=== PATIENT | female | born 1935 | race Hispanic/Latino ===

== ENCOUNTER 2017-03-17 16:48 | Emergency (ER) | payer MEDICARE ==
[2017-03-17] MEDS ORDERED: traMADol HCl 50 MG TAB ONE (17:49)
== END 2017-03-17 17:54 | disposition home or self-care (01) ==
LOC: ERS 16:48
DX: K08.89 Other specified disorders of teeth and supporting structures (principal); I10 Essential (primary) hypertension; I25.2 Old myocardial infarction
CPT/HCPCS: 99282

== ENCOUNTER 2017-06-17 15:26 | Emergency (ER) | payer MEDICARE | END 2017-06-17 18:09 | disposition home or self-care (01) | LOC: ERS 15:26 | DX: L30.9 Dermatitis, unspecified (principal); I25.2 Old myocardial infarction; I10 Essential (primary) hypertension; Z79.82 Long term (current) use of aspirin; Z79.899 Other long term (current) drug therapy | CPT/HCPCS: 99282 ==

== ENCOUNTER 2018-09-27 20:30 | Emergency (ER) | payer MEDICARE ==
[~2018-09-27 20:30] MED LIST: ISOVUE-370 76%-LOCM 1 ML ONE
[2018-09-27 21:53] LABS: #Eosinphils 0.3 thou/uL (0.0-0.7); #Monocytes 0.4 thou/uL (0.11-0.59); #Neutrophils 3.2 thou/uL (1.40-6.50); %Basophils 0.2 % (0.0-1.0); %Eosinophils 5.3 % (0.0-10.0); %Lymphocytes 33.7 % (21.0-51.0); %Monocytes 6.6 % (0.0-10.0); %Neutrophils 54.2 % (42.0-75.0); Hemoglobin 10.8 g/dL (12.0-16.0); Mean Corpuscular HGB CONC 32.9 g/dL (32.0-36.0); Mean Corpuscular Hemoglobin 32.3 pg (27.0-31.0); Mean Corpuscular Volume 98.1 fL (78.0-98.0); Mean Platelet Volume 9.7 fL (7.4-10.4); Platelet Count 127 thou/uL (130-400); RBC Distribution Width 12.5 % (11.5-14.5); Red Blood Cell (RBC) Count 3.34 mill/uL (4.20-5.40); White Blood Cell (WBC) Count 5.9 thou/uL (4.8-10.8)
[2018-09-27 22:15] LABS: ALT (SGPT) 13 U/L (8-55); AST (SGOT) 29 U/L (5-34); Albumin 3.7 g/dL (3.4-4.8); Alkaline Phosphatase 74 U/L (40-150); Anion Gap 9 mmol/L (10-20); BUN (Urea Nitrogen) 13 mg/dL (9.8-20.1); Bilirubin, Total 0.5 mg/dL (0.2-1.2); CK (CPK) 59 U/L (29-168); Calc. Creatinine Clearance 0 mL/min (70-130); Calcium 9.7 mg/dL (7.8-10.44); Carbon Dioxide 27 mmol/L (23-31); Chloride 108 mmol/L (98-107); Estimated GFR-MDRD 49; Globulin 3.1 g/dL (2.4-3.5); Glucose 96 mg/dL (83-110); Lipase 127 U/L (8-78); Potassium 4.7 mmol/L (3.5-5.1); Protein, Total 6.8 g/dL (6.0-8.3); Sodium 139 mmol/L (136-145)
--- NOTE | 2018-09-27 22:17 | RAD ---
CHEST ONE VIEW: 09/27/18 at 9:47 p.m. HISTORY: Chest pain. FINDINGS: Comparison made with the exam of 09/27/08. There are changes of median sternotomy. The heart size is normal. The lungs are expanded without foca l areas of consolidation, pneumothoraces or chuy pulmonary edema or pleural effusions. IMPRESSION: No acute process. POS: [facility]
--- NOTE | 2018-09-27 23:05 | CT ---
CT ABDOMEN AND PELVIS WITH IV CONTRAST 09/27/18 HISTORY: Epigastric pain. FINDINGS: There are dependent changes in the lung bases. The patient is post cholecystectomy with air in the ce ntral portions of the intrahepatic biliary ducts. No hepatic mass is seen. The spleen, pancreas, adre nal glands, and kidneys are normal. A small hiatal hernia is present. There is thickening of the wall of the distal stomach/pyloric antru m. The small bowel loops are not abnormally dilated. There is colonic diverticulosis without divertic ulitis. No free air, free fluid or lymphadenopathy seen in the abdomen or pelvis. There are dilated gonadal v eins. The uterus is present. Vascular calcifications are noted without evidence of aneurysmal dilatat ion of the abdominal aorta. There are degenerative changes of the spine. IMPRESSION: 1. Distal gastric wall/antral thickening. Mass/malignancy cannot be excluded. Endoscopy is recom mended. 2. Colonic diverticulosis. 3. Dilated gonadal veins. 4. Small hiatal hernia. POS: [facility]
[2018-09-28] MEDS ORDERED: Morphine 4 MG/ML VIAL ONE (00:06)
[2018-09-28] MEDS ORDERED: Ondansetron PF 4 MG/2 ML Vial ONE (00:06)
--- NOTE | 2018-10-01 14:35 | EKG ---
Test Reason : Blood Pressure : / mmHG Vent. Rate : 060 BPM Atrial Rate : 060 BPM P-R Int : 158 ms QRS Dur : 118 ms QT Int : 436 ms P-R-T Axes : -09 -41 -06 degrees QTc Int : 436 ms Normal sinus rhythm Left axis deviation Incomplete right bundle branch block Nonspecific T wave abnormality Abnormal ECG Confirmed by RAIZA GIBBONS ([id number]), assistant film editor JAMES ROWELL ([id number]) on 10/01/2018 2:35:34 PM Referred By: Confirmed By:RAIZA GIBBONS
== END 2018-09-28 00:23 | disposition home or self-care (01) ==
LOC: ERS 20:30
DX: K31.89 Other diseases of stomach and duodenum (principal); I25.2 Old myocardial infarction; I10 Essential (primary) hypertension; Z79.82 Long term (current) use of aspirin; Z79.899 Other long term (current) drug therapy
CPT/HCPCS: 36415; 71045; 74177; 80053; 82550; 83690; 83880; 84484; 85025; 93005; J2270; J2405; Q9966

== ENCOUNTER 2018-10-05 12:00 | Day surgery (SDC) | payer MEDICARE ==
[2018-10-04 10:10] VITALS: BMI 21.9
--- NOTE | 2018-10-04 13:41 | HP ---
HISTORY OF PRESENT ILLNESS: This is an 83-year-old female, referred to me because of abdominal pain, abdominal bloating, and abnormal CAT scan of the abdomen. She was seen here at the ER about 10 days ago with abdominal pain and nausea. She also had a CAT scan. The CAT scan showed thickening of the gastric wall. She has a family history of gastric cancer. The patient underwent EGD because of the abnormal CAT scan of abdomen and abdominal pain. She also has history of reflux and dysphagia. ALLERGIES: INFLUENZA VACCINE. MEDICAL ILLNESS: 1. Hypertension. 2. Hyperlipidemia. 3. Arthritis. PHYSICAL EXAMINATION: GENERAL: Appears comfortable. VITAL SIGNS: Pulse is 70 and blood pressure 130/70. HEENT: Conjunctivae clear. CARDIOVASCULAR SYSTEM: First and second heart sounds heard. LUNGS: Clear to auscultation. ABDOMEN: Soft. Abdomen is tender over the epigastric area. There is no rebound or guarding. No organomegaly or masses. Bowel sounds are normal. ADMITTING DIAGNOSES: Abdominal pain and abnormal CAT scan of abdomen. PLAN: EGD. Job ID: [id number]
[2018-10-05] MEDS ORDERED: Lidocaine 1% PF 5 ML VIAL ONE (16:27)
[2018-10-05] MEDS ORDERED: PROPOFOL 200 MG/20 ML VIAL ONE (16:27)
--- NOTE | 2018-10-05 16:29 | OP ---
DATE OF PROCEDURE: 10/05/2018 PROCEDURE PERFORMED: Esophagogastroduodenoscopy with biopsy. PREOPERATIVE DIAGNOSES: Abdominal pain, abnormal CAT of the abdomen, and family history of gastric cancer. POSTOPERATIVE DIAGNOSES: 1. Mild esophagitis, distal esophagus. 2. Gastric ulcer of the gastric antrum with erosions. DESCRIPTION OF PROCEDURE: The patient was placed on her left lateral position and was given sedation by Anesthesia Department. A Pentax video gastroscope under direct vision passed down the oropharynx past the GE junction into the stomach and subsequently into the descending duodenum. The vocal cords appeared healthy. The esophageal mucosa appeared normal. There was no esophageal stricture seen. At the distal esophagus and GE junction, there was mild mucosal edema, erythema. Upon entering the stomach, the scope was retroflexed to visualize fundus and cardia. No lesion seen in the fundus or cardia. In the gastric body, no lesions. The gastric antrum and gastric ulceration, which appears chronic in nature. The duodenal bulb, descending duodenum, no pathology seen. The stomach decompressed and the scope removed. DISCHARGE PLANNING: Ms. Nora Vazquez is a very pleasant 83-year-old female with abdominal pain, abnormal CAT scan of the abdomen. she was found to havegastric ulcer and gastric erosions.Biopsies were obtained from the gastric antrum and body. DISCHARGE RECOMMENDATIONS: 1. Omeprazole 40 once a day. 2. She is advised to call me if she develops abdominal pain, hematochezia. 3. In the absence of any of the above symptoms, the patient will come back to me in 2 weeks. Job ID: [id number] MTDD
== END 2018-10-05 14:32 | disposition home or self-care (01) ==
LOC: SDC 12:00
PROVIDERS: ATTEND Internal Medicine Gastroenterology
PROC: 0DB78ZX Excision of Stomach, Pylorus, Via Natural or Artificial Opening Endoscopic, Diagnostic (ICD-10-PCS; principal; 2018-10-05)
DX: K29.60 Other gastritis without bleeding (principal); B96.81 Helicobacter pylori [H. pylori] as the cause of diseases classified elsewhere; K25.9 Gastric ulcer, unspecified as acute or chronic, without hemorrhage or perforation; K20.9 Esophagitis, unspecified; I10 Essential (primary) hypertension; E78.5 Hyperlipidemia, unspecified; M19.90 Unspecified osteoarthritis, unspecified site; Z88.7 Allergy status to serum and vaccine; Z79.82 Long term (current) use of aspirin; Z79.899 Other long term (current) drug therapy; Z79.2 Long term (current) use of antibiotics; Z95.1 Presence of aortocoronary bypass graft
CPT/HCPCS: 88305; 88312; J2001; J2704

== ENCOUNTER 2019-12-07 09:50 | Inpatient (IN) | payer MEDICARE ==
[2019-12-07 10:56] LABS: #Basophils 0.1 thou/uL (0.0-0.2); #Eosinphils 0.3 thou/uL (0.0-0.7); #Lymphocytes 1.3 thou/uL (1.20-3.40); #Monocytes 0.4 thou/uL (0.11-0.59); #Neutrophils 2.3 thou/uL (1.40-6.50); %Basophils 1.1 % (0.0-1.0); %Eosinophils 7.1 % (0.0-10.0); %Lymphocytes 30.9 % (21.0-51.0); %Monocytes 8.4 % (0.0-10.0); %Neutrophils 52.6 % (42.0-75.0); Hemoglobin 10.9 g/dL (12.0-16.0); Mean Corpuscular HGB CONC 32.2 g/dL (32.0-36.0); Mean Corpuscular Hemoglobin 33.1 pg (27.0-31.0); Mean Platelet Volume 9.9 fL (7.4-10.4); Platelet Count 100 thou/uL (130-400); RBC Distribution Width 13.6 % (11.5-14.5); White Blood Cell (WBC) Count 4.3 thou/uL (4.8-10.8)
[2019-12-07 11:07] LABS: ALT (SGPT) 28 U/L (8-55); AST (SGOT) 56 U/L (5-34); Albumin 3.1 g/dL (3.4-4.8); Alkaline Phosphatase 89 U/L (40-110); Anion Gap 10 mmol/L (10-20); BUN (Urea Nitrogen) 19 mg/dL (9.8-20.1); Bilirubin, Total 1.2 mg/dL (0.2-1.2); Calc. Creatinine Clearance 0 mL/min (70-130); Calcium 8.8 mg/dL (7.8-10.44); Carbon Dioxide 23 mmol/L (23-31); Chloride 110 mmol/L (98-107); Estimated GFR-MDRD 39; Globulin 3.6 g/dL (2.4-3.5); Glucose 95 mg/dL (83-110); Protein, Total 6.7 g/dL (6.0-8.3); Sodium 139 mmol/L (136-145)
[2019-12-07] MEDS ORDERED: Furosemide 20 MG/2 ML VIAL ONE ×2 (11:57→12:06)
[2019-12-07] MEDS ORDERED: Nitroglycerin 0.4 MG TAB 1 EACH ONE (11:57)
--- NOTE | 2019-12-07 12:02 | RAD ---
PORTABLE CHEST: Date: 12/07/2019 PROVIDED CLINICAL HISTORY: Abnormal laboratory values. FINDINGS: Comparison with 09/27/2018. Cardiaca silhouette appears enlarged. Median sternotomy changes and vascular calcifications are again seen. Prominent pulmonary interstitium appears similar. No focal consolidation, pleural fluid, or pn eumothorax apparent. IMPRESSION: Cardiomegaly without evidence for an acute cardiopulmonary process. POS: [facility]
[2019-12-07] MEDS ORDERED: Acetaminophen 325 MG TAB PO PRN (12:23)
[2019-12-07] MEDS ORDERED: HYDROcodone/Acetaminophen 5/325 mg Tablet PO PRN (12:23)
[2019-12-07] MEDS ORDERED: Acetaminophen 650 MG Suppository PR PRN (12:23)
--- NOTE | 2019-12-07 12:35 | PDOC.HHP ---
Hospitalist HPI - History of Present Illness leg edema History of Present Illness: Case of an 84y/o female with pmhx of cad, htn, hyperlipidemia and PUD who comes to hospital sent by [employer] dr Sevilla. patient refers she was on her usual state of health until about a month ago when she started to notice leg swelling, that has gone progressively worse. she states she visited her pcp who started her on lasix 20mg po bid and her swelling has improve but is still pretty significant. apparenly pcp sent some labs that were also sent to dr sevilla who saw them and called family members to take patient for evaluation. at the ed patient was found to have new onset of heart failure for [facility] hospitalist was called for further evaluation and management. patient denies any chest pain palpitations sob diaphoresis orthopnea or PND Hospitalist ROS - Review of Systems All other systems reviewed; all pertinent +/- noted in HPI/Subj Hospitalist History - Past Medical History Source: patient, family Cardiac: reports: CAD, HTN, Hyperlipidemia Gastrointestinal: reports: Peptic ulcer disease - Past Surgical History Past Surgical History: reports: Cholecystectomy, CABG - Family History Family History: reports: cardiac disorder, diabetes mellitus - Social History Smoking Status: Never smoker Alcohol: reports: None Drugs: reports: none Living Situation: With Family Activity level: independent ambulation - Exam General Appearance: NAD, awake alert Eye: PERRL, anicteric sclera ENT: normocephalic atraumatic, no oropharyngeal lesions Neck: supple, symmetric, no JVD Heart: RRR, no murmur, no gallops Respiratory: CTAB, no wheezes, no rales, no ronchi Gastrointestinal: non-tender, non-distended, normal bowel sounds Extremities: no cyanosis, no clubbing, 2+ LE edema Skin: normal turgor, no lesions, no rashes Neurological: cranial nerve grossly intact, normal sensation to touch, no weakness Musculoskeletal: normal tone, normal strength, no muscle wasting Psychiatric: normal affect, normal behavior, A&O x 3 Hospitalist Results - Labs Result Diagrams: 12/07/19 10:36 12/07/19 10:36 Lab results: WBC 4.3 thou/uL (4.8-10.8) L 12/07/19 10:36 Hgb 10.9 g/dL (12.0-16.0) L 12/07/19 10:36 Hct 33.9 % (36.0-47.0) L 12/07/19 10:36 MCV 103.0 fL (78.0-98.0) H 12/07/19 10:36 Plt Count 100 thou/uL (130-400) L 12/07/19 10:36 Neutrophils % 52.6 % (42.0-75.0) 12/07/19 10:36 Sodium 139 mmol/L (136-145) 12/07/19 10:36 Potassium 4.0 mmol/L (3.5-5.1) 12/07/19 10:36 Chloride 110 mmol/L (98-107) H 12/07/19 10:36 Carbon Dioxide 23 mmol/L (23-31) 12/07/19 10:36 BUN 19 mg/dL (9.8-20.1) 12/07/19 10:36 Creatinine 1.29 mg/dL (0.6-1.1) H 12/07/19 10:36 Glucose 95 mg/dL (83-110) 12/07/19 10:36 Calcium 8.8 mg/dL (7.8-10.44) 12/07/19 10:36 Total Bilirubin 1.2 mg/dL (0.2-1.2) 12/07/19 10:36 AST 56 U/L (5-34) H 12/07/19 10:36 ALT 28 U/L (8-55) 12/07/19 10:36 Alkaline Phosphatase 89 U/L (40-110) 12/07/19 10:36 B-Natriuretic Peptide 1088.5 pg/mL (0-100) H 12/07/19 10:36 Serum Total Protein 6.7 g/dL (6.0-8.3) 12/07/19 10:36 Albumin 3.1 g/dL (3.4-4.8) L 12/07/19 10:36 - Radiology Interpretation Chest x-ray Status: image reviewed by me, report reviewed by me Additional Comment: cardiomegaly Hospitalist H&P A/P - Problem (1) Acute decompensated heart failure Code(s): I50.9 - HEART FAILURE, UNSPECIFIED Status: Acute (2) Hypertensive urgency Code(s): I16.0 - HYPERTENSIVE URGENCY Status: Acute (3) HTN (hypertension) Code(s): I10 - ESSENTIAL (PRIMARY) HYPERTENSION Status: Acute (4) CAD (coronary artery disease) Code(s): I25.10 - ATHSCL HEART DISEASE OF [place] CORONARY ARTERY W/O ANG PCTRS Status: Acute (5) Hyperlipidemia Code(s): E78.5 - HYPERLIPIDEMIA, UNSPECIFIED Status: Acute (6) PUD (peptic ulcer disease) Code(s): K27.9 - PEPTIC ULC, SITE UNSP, UNSP AC OR CHR, W/O HEMOR OR PERF Status: Acute - Plan Plan: 84y/o fem with the stated pmhx who comes with b/l +3 leg edema, elevated bnp in the 1ks and cardiomegaly on chest xr w/o hx of CHF. - starting lasix 20mg iv q 12 - monitor u/o, electrolites and creatinine - on optimal cad medication with beta elias acei statin and asa - 2d echo - cardioly consult - serial troponins - dvt prophylaxis on hold due to thrombocytopenia - telemetry obs -evaluation of modifiable risk factors w lipid panel and a1c -hydralazine prn
[2019-12-07 13:25] LABS: Troponin I 0.041 ng/mL (< 0.028)
[2019-12-07 16:22] LABS: Troponin I 0.043 ng/mL (< 0.028)
[2019-12-07] MEDS: Furosemide 20 MG/2 ML VIAL SLOW IVP SCH (17:32)
[2019-12-07] MEDS: hydrALAZINE 20 MG/ML VIAL SLOW IVP PRN (17:32)
[2019-12-07] MEDS ORDERED: Lisinopril 20 MG TAB PO SCH (18:00)
[2019-12-07 19:28] LABS: Troponin I 0.041 ng/mL (< 0.028)
[2019-12-07] MEDS: Rosuvastatin 20 MG TAB PO SCH (20:35)
[2019-12-08 04:48] LABS: Hemoglobin A1c 4.7 % (4.0-6.0)
[2019-12-08 05:04] LABS: Cardiac Risk 4.2 (Less than 4.5); Magnesium 1.6 mg/dL (1.6-2.6)
[2019-12-08] MEDS: Furosemide 20 MG/2 ML VIAL SLOW IVP SCH ×2 (05:10→14:49)
[2019-12-08] MEDS: Lisinopril 20 MG TAB PO SCH (08:11)
[2019-12-08] MEDS: Aspirin Chewable 81 MG TAB PO SCH (08:11)
[2019-12-08] MEDS ORDERED: Fenofibrate Nanocrystallized 145 MG TAB PO SCH (09:00)
[2019-12-08] MEDS ORDERED: Atenolol 25 MG TAB PO SCH (09:00)
[2019-12-08] MEDS ORDERED: Magnesium 2 GM/50 ML 2 GM in Premix Bag 1 BAG IVPB SCH (11:30)
[2019-12-08 13:24] VITALS: BMI 23.4
--- NOTE | 2019-12-08 14:19 | ULT ---
EXAM: Bilateral lower extremity venous ultrasound HISTORY: Edema COMPARISON: None TECHNIQUE: Multiplanar grayscale and color Doppler images were obtained in a bilateral lower extremit y venous ultrasound. Spectral analysis of the Doppler waveforms were performed. FINDINGS: The bilateral common femoral vein, profunda femoral veins, superficial femoral veins, and p opliteal veins are normal in appearance without visible thrombus. These vessels demonstrate normal compression, flow, and augmentation. The bilateral posterior tibial veins, profunda femoral veins and greater saphenous veins are patent w ithout evidence of DVT. There is soft tissue swelling involving the distal left lower extremity. 1.3 x 0.4 x 2.6 cm anechoic focus in the right popliteal fossa is noted. Correlate for possible ruptu red cyst. IMPRESSION: 1. No evidence of DVT in the left or right lower extremity. 2. Soft tissue edema 3. Focal fluid in the right popliteal fossa. Correlate for ruptured Chahal's cyst
[2019-12-08] MEDS: hydrALAZINE 20 MG/ML VIAL SLOW IVP PRN (16:02)
--- NOTE | 2019-12-08 17:08 | PDOC.HOSPP ---
- Subjective Encounter Date: 12/08/19 Subjective: patient seen on f/u for new onset of chf. patient refers she is feeling fine. denies chest pain palpitation sob or diaphoresis - Objective Vital Signs & Weight: Vital Signs (12 hours) Temp Pulse Resp BP BP Pulse Ox 12/08/19 16:02 52 L 12/08/19 15:53 97.6 F 52 L 14 176/85 H 100 12/08/19 11:59 97.5 F L 55 L 14 154/58 H 98 12/08/19 08:11 63 189/79 H 12/08/19 07:12 98.6 F 63 14 142/60 H 99 Weight Admit Weight 127 lb 1.164 oz Weight 120 lb I&O: 12/07/19 12/08/19 12/09/19 06:59 06:59 06:59 Intake Total 652 Output Total 1200 Balance -548 Result Diagrams: 12/07/19 10:36 12/07/19 10:36 Hospitalist ROS - Review of Systems All other systems reviewed; all pertinent +/- noted in HPI/Subj - Medication Medications: Active Medications Generic Name Dose Route Start Last Admin Trade Name Freq PRN Reason Stop Dose Admin Aspirin 81 mg 12/08/19 09:00 12/08/19 08:11 Aspirin Chewable PO 81 mg DAILY LEXX Administration Furosemide 20 mg 12/07/19 14:00 12/08/19 14:49 Lasix SLOW IVP 20 mg 0600,1400 LEXX Administration Hydralazine HCl 10 mg 12/07/19 12:44 12/08/19 16:02 Apresoline SLOW IVP 10 mg Q6H PRN Administration SBP>170 Lisinopril 40 mg 12/08/19 09:00 12/08/19 08:11 Zestril PO 40 mg DAILY LEXX Administration Rosuvastatin Calcium 40 mg 12/07/19 21:00 12/07/19 20:35 Crestor PO 40 mg HS LEXX Administration - Exam General Appearance: NAD, awake alert Eye: PERRL, anicteric sclera ENT: normocephalic atraumatic, no oropharyngeal lesions Neck: supple, symmetric, no JVD Heart: RRR, no murmur, no gallops Respiratory: CTAB, no wheezes, no rales Gastrointestinal: soft, non-tender, non-distended Extremities: 2+ LE edema Skin: normal turgor, no lesions, no rashes Neurological: cranial nerve grossly intact, normal sensation to touch Musculoskeletal: normal tone, normal strength Psychiatric: normal affect, normal behavior, A&O x 3 Hosp A/P (1) Acute decompensated heart failure Code(s): I50.9 - HEART FAILURE, UNSPECIFIED Status: Acute (2) Hypertensive urgency Code(s): I16.0 - HYPERTENSIVE URGENCY Status: Acute (3) HTN (hypertension) Code(s): I10 - ESSENTIAL (PRIMARY) HYPERTENSION Status: Acute (4) CAD (coronary artery disease) Code(s): I25.10 - ATHSCL HEART DISEASE OF [place] CORONARY ARTERY W/O ANG PCTRS Status: Acute (5) Hyperlipidemia Code(s): E78.5 - HYPERLIPIDEMIA, UNSPECIFIED Status: Acute (6) PUD (peptic ulcer disease) Code(s): K27.9 - PEPTIC ULC, SITE UNSP, UNSP AC OR CHR, W/O HEMOR OR PERF Status: Acute - Plan - continue with diuresis, edema has decreased significantly but still edema +2 b /l, no longer reaches her hips - us negative for dvt - troponin trend stable, no chest pain -cardiology consulted following recommendations -2d echo report pending will follow w results -pt continues with uncontrolled htn, hydralazine and amlodipine were added. follow and adjust as necessary - f/u bmp in am for electrolyte disturbances due to aggresive diuretic therapy
[2019-12-08] MEDS: Carvedilol 6.25 MG TAB PO SCH (17:48)
--- NOTE | 2019-12-08 20:05 | CON ---
DATE OF CONSULTATION: HISTORY OF PRESENT ILLNESS: Nora Vazquez is an 84-year-old female, who I initially evaluated in September 2008. She was apparently found down and transported by paramedics. When they arrived, she had heart rates in the 30s and an obvious inferior infarction. She also stated that she had been having chest discomfort for a few weeks. She was taken emergently to the catheterization lab due to her inferior STEMI and junctional bradycardia with heart rates in the 30s. A 5-German sheath was placed in the right femoral vein for access if needed. She underwent coronary arteriography, was found to have a subtotally occluded right coronary artery initially, and decision was made to intervene. Pronto catheter was used for thrombectomy. Liberte 4.0 x 28 mm and another 4.0 x 28 mm and then 4.0 x 16 mm stents were placed in the mid right coronary artery to the ostium. The last 2 stents did not overlap due to some recoil into the aorta and another Liberte 4.0 x 12 mm stent was placed. Left coronary arteriography was then performed. This revealed a 60% proximal LAD, 60 % proximal stenosis of the bifurcation, 70% mid stenosis, and 70% first diagonal. The ramus had an 80% proximal stenosis. Circumflex was normal. The right coronary artery was totally occluded as noted above and was stented. She then underwent CABG x3 five days after admission. There was MAYERS to the very small diseased LAD, vein graft to the diagonal and the ramus. Since that time from a coronary artery standpoint, she has done fairly well. She has been seen once or twice a year since that time and overall has not had any specific complaints. Over the last month, she has began to notice increasing peripheral edema. Also, her legs would ache and hurt. She denies any shortness of breath or chest discomfort. Her daughter did call the office on December 03 and she was placed on Lasix 20 mg b.i.d. x3 days; however, this apparently did not help and she came to the emergency room for further evaluation. Last echocardiogram in September 2018 revealed ejection fraction of 50% to 55% and no significant valvular abnormalities. She is uncertain of her blood pressure at home. PAST MEDICAL HISTORY: Hypertension and hypercholesterolemia. No history of diabetes. MEDICATIONS: 1. Atenolol 25 mg q.a.m. 2. Aspirin 81 daily. 3. Atorvastatin 80 daily. 4. Zyrtec p.r.n. 5. Fenofibrate 134 mg daily. 6. Furosemide 20 mg daily. 7. Lisinopril 40 daily. 8. Hydralazine 25 mg t.i.d. ALLERGIES: INFLUENZA VIRUS. SOCIAL HISTORY: She smoked until the time of bypass surgery. She does not drink. REVIEW OF SYSTEMS: A 10-point review of systems is otherwise unremarkable. PHYSICAL EXAMINATION: VITAL SIGNS: Blood pressure 154/58 and pulse of 55. HEENT: PERRL. NECK: Supple. CHEST: Clear. CARDIAC: S1 and S2 normal without any S3, S4, or murmurs. ABDOMEN: Normal bowel sounds without tenderness or organomegaly. EXTREMITIES: Revealed 2+ pretibial edema. She has bilateral leg erythema and some warmth. LABORATORY DATA: EKG reveals sinus bradycardia with rate of 53 per minute and right bundle-branch block. Echocardiogram revealed ejection fraction of 55% to 60% with moderate mitral regurgitation, mild aortic insufficiency, mild tricuspid regurgitation. Hemoglobin 10.9, hematocrit 33.9, white count 4300, platelets 100,000. Sodium 139, potassium 4.0, chloride 110, carbon dioxide 23, BUN 19, creatinine 1.29. BNP 1088.5. Troponin I is up to 0.043. Cholesterol 67, triglycerides 71, HDL 16, and LDL 37. IMPRESSION: 1. Acute diastolic heart failure. This probably is related to her poorly controlled hypertension with blood pressure on admission of 206/65. 2. Status post coronary artery bypass graft x3. 3. History of inferior ST-elevation myocardial infarction with stents placed in the right coronary artery. 4. Hypertension. 5. Hypercholesterolemia. 6. Possible leg cellulitis. RECOMMENDATIONS: The patient will be switched to carvedilol for slightly better blood pressure control and hopefully not quite as much bradycardia. Atenolol will be discontiued. Hydralazine dose will also be increased. Daily labs will need to be obtained. I also will discontinue the fenofibrate with her current triglyceride level. Lower extremity ultrasound be performed to rule out deep venous thrombosis. Job ID: [id number] MTDD
[2019-12-08] MEDS: hydrALAZINE 25 MG TAB PO SCH (20:44)
[2019-12-08] MEDS: Rosuvastatin 20 MG TAB PO SCH (20:44)
[2019-12-09 05:10] LABS: Anion Gap 10 mmol/L (10-20); BUN (Urea Nitrogen) 31 mg/dL (9.8-20.1); Calc. Creatinine Clearance 26 mL/min (70-130); Calcium 8.3 mg/dL (7.8-10.44); Carbon Dioxide 26 mmol/L (23-31); Chloride 107 mmol/L (98-107); Estimated GFR-MDRD 34; Glucose 108 mg/dL (83-110); Magnesium 2.1 mg/dL (1.6-2.6); Potassium 3.7 mmol/L (3.5-5.1); Sodium 139 mmol/L (136-145)
[2019-12-09] MEDS: Furosemide 20 MG/2 ML VIAL SLOW IVP SCH ×2 (05:49→13:09)
--- NOTE | 2019-12-09 08:28 | PDOC.CPN ---
- Subjective Date: 12/09/19 Time: 10:00 Interval history: Ms. Vazquez is awake, feeling well, she denies any acute cardiac complaints or concerns. She reports her swelling "is much better". Urinating frequently. No overnight events on telemetry. - Review of Systems General: denies: fever/chills, weight/appetite/sleep changes, night sweats, fatigue Respiratory: denies: cough, congestion, shortness of breath, exercise intolerance Cardiovascular: reports: edema. denies: chest pain, palpitation, paroxysmal nocturnal dyspnea, orthopnea Gastrointestinal: denies: nausea, vomiting, diarrhea, constipation, abd pain, GI bleeding Musculoskeletal: denies: pain, tenderness, stiffness, swelling, arthritis/ arthralgias Neurological: denies: numbness, syncope, seizure, weakness - Objective Allergies/Adverse Reactions: Allergies Allergy/AdvReac Type Severity Reaction Status Date / Time influenza virus vaccine, Allergy Verified 10/04/18 10:10 specific Visit Medications: Current Medications Acetaminophen (Tylenol) 650 mg PO Q4H PRN PRN Reason: Headache/Fever/Mild Pain (1-3) Acetaminophen (Tylenol) 650 mg NV Q4H PRN PRN Reason: Headache/Fever/Mild Pain (1-3) Hydrocodone Bitart/Acetaminophen ([place] 5/325) 1 tab PO Q4H PRN PRN Reason: Moderate Pain (4-6) Hydrocodone Bitart/Acetaminophen ([place] 5/325) 2 tab PO Q4H PRN PRN Reason: Severe Pain (7-10) Amlodipine Besylate (Norvasc) 5 mg PO DAILY [facility] Aspirin (Aspirin Chewable) 81 mg PO DAILY [facility] Last Admin: 12/08/19 08:11 Dose: 81 mg Carvedilol (Coreg) 6.25 mg PO BID-[facility] Last Admin: 12/08/19 17:48 Dose: 6.25 mg Furosemide (Lasix) 20 mg SLOW IVP 0600,1400 [facility] Last Admin: 12/09/19 05:49 Dose: 20 mg Hydralazine HCl (Apresoline) 10 mg SLOW IVP Q6H PRN PRN Reason: SBP>170 Last Admin: 12/08/19 16:02 Dose: 10 mg Hydralazine HCl (Apresoline) 50 mg PO BID [facility] Last Admin: 06/19/20 20:44 Dose: 50 mg Lisinopril (Zestril) 40 mg PO DAILY [facility] Last Admin: 12/08/19 08:11 Dose: 40 mg Rosuvastatin Calcium (Crestor) 40 mg PO HS [facility] Last Admin: 12/08/19 20:44 Dose: 40 mg Vital Signs & Weight: Vital Signs Temp Pulse Resp BP Pulse Ox 12/09/19 07:27 97.7 F 57 L 12 116/49 L 12/09/19 03:15 98.5 F 62 16 118/49 L 98 12/09/19 02:01 99 12/08/19 20:44 60 Admit Weight 127 lb 1.164 oz Weight 125 lb 12.8 oz - Quality Measures Condition: Coronary Artery Disease CV meds: Beta Beck: Yes, PERCY/ARB: Yes, Statin: Yes, ASA: Yes, Plavix/Effient/ Brilinta: No, Anticoagulant: No - Medication Contraindications No Antithrombotic reason: Treatment not indicated No Anticoagulant reason: Treatment not indicated - Physical Exam General: alert & oriented x3, appears well, no apparent distress HEENT: mucus membranes moist Neck: supple neck, no JVD/HJR Cardiac: regular rate and rhythm, no murmur, S1/S2 Lungs: clear to auscultation, normal breath sounds, no wheeze, rales, rhonchi Neuro: grossly intact Abdomen: active bowel sounds, soft, non-tender Extremities: 1+ LE edema Skin: clear Musculoskeletal: normal range of motion - Labs Result Diagrams: 12/07/19 10:36 12/09/19 04:24 Troponin/CKMB Troponin I 0.041 ng/mL (< 0.028) H 12/07/19 18:46 - Telemetry Sinus rhythms and dysrhythmias: sinus rhythm (60s) - Assessment/Plan Assessment/Plan: Assessment: 1. Acute on chronic diastolic HF, EF 55-60% 2. CAD, S/P CABG-no anginal symptoms 3. Sinus Bradycardia-stable on current carvedilol dose 4. Moderate Mitral Regurgitation, normal LA size 5. HTN-variable, but improving 6. CKD Stage 3 7. Hypercholesterolemia-LDL 37, continue statin. Plan: Volume status improving, edema significantly improved, ? 5+ pound weight gain overnight, weight likely inaccurate, -1300 fluid balance. Continue IV furosemide for now, check renal function in am.
[2019-12-09] MEDS: Lisinopril 20 MG TAB PO SCH (08:32)
[2019-12-09] MEDS: Aspirin Chewable 81 MG TAB PO SCH (08:32)
[2019-12-09] MEDS: hydrALAZINE 25 MG TAB PO SCH ×2 (08:33→20:09)
[2019-12-09] MEDS: Carvedilol 6.25 MG TAB PO SCH ×2 (08:33→17:38)
[2019-12-09] MEDS ORDERED: Amlodipine 5 MG TAB PO SCH (09:00)
--- NOTE | 2019-12-09 15:47 | PDOC.HOSPP ---
- Subjective Encounter Date: 12/09/19 Encounter Time: 08:00 Subjective: no overnight events. feeling better, swelling improved and has no complaints. - Objective Vital Signs & Weight: Vital Signs (12 hours) Temp Pulse Pulse Pulse Resp BP BP 12/09/19 13:03 59 L 61 118/51 L 140/51 L 12/09/19 13:01 97.9 F 56 L 15 12/09/19 08:33 57 L 12/09/19 08:32 57 L 12/09/19 07:27 97.7 F 57 L 12 BP Pulse Ox Pulse Ox Pulse Ox 12/09/19 13:03 97 98 12/09/19 13:01 120/47 L 98 12/09/19 08:33 12/09/19 08:32 12/09/19 07:27 116/49 L Weight Admit Weight 127 lb 1.164 oz Weight 125 lb 12.8 oz I&O: 12/08/19 12/09/19 12/10/19 06:59 06:59 06:59 Intake Total 652 962 Output Total 1200 2300 Balance -825 -0249 Result Diagrams: 12/07/19 10:36 12/09/19 04:24 Hospitalist ROS - Review of Systems Constitutional: denies: fever, chills, sweats, weakness, malaise, other Respiratory: denies: cough, dry, shortness of breath, hemoptysis, SOB with excertion, pleuritic pain, sputum, wheezing, other Cardiovascular: denies: chest pain, palpitations, orthopnea, paroxysmal noc. dyspnea, edema, light headedness, other Gastrointestinal: denies: nausea, vomiting, abdominal pain, diarrhea, constipation, melena, hematochezia, other Genitourinary: denies: dysuria, frequency, incontinence, hematuria, retention, other - Medication Medications: Active Medications Generic Name Dose Route Start Last Admin Trade Name Freq PRN Reason Stop Dose Admin Amlodipine Besylate 5 mg 12/09/19 09:00 12/09/19 08:32 Norvasc PO 5 mg DAILY LEXX Administration Aspirin 81 mg 12/08/19 09:00 12/09/19 08:32 Aspirin Chewable PO 81 mg DAILY LEXX Administration Carvedilol 6.25 mg 12/08/19 17:00 12/09/19 08:33 Coreg PO 6.25 mg BID-WM LEXX Administration Furosemide 20 mg 12/07/19 14:00 12/09/19 13:09 Lasix SLOW IVP 20 mg 0600,1400 LEXX Administration Hydralazine HCl 10 mg 12/07/19 12:44 12/08/19 16:02 Apresoline SLOW IVP 10 mg Q6H PRN Administration SBP>170 Hydralazine HCl 50 mg 12/08/19 21:00 12/09/19 08:33 Apresoline PO 50 mg BID LEXX Administration Lisinopril 40 mg 12/08/19 09:00 12/09/19 08:32 Zestril PO 40 mg DAILY LEXX Administration Rosuvastatin Calcium 40 mg 12/07/19 21:00 12/08/19 20:44 Crestor PO 40 mg HS LEXX Administration - Exam General Appearance: NAD, awake alert Neck: no JVD Heart: no murmur, no gallops Heart - other findings: bradycardic Respiratory: CTAB, no wheezes, no rales, no ronchi Gastrointestinal: soft, non-tender, non-distended Extremities: 2+ LE edema Extremities - other findings: improved per patient Psychiatric: normal affect, normal behavior, A&O x 3 Hosp A/P - Plan #lower extremity edema -contine lasix and treatment for CHFpEF per cardiology, who recommends patient to remain inpatient overnight #HTN well controlled; goal < 130/80 due to history of CAD per [facility] ELOS: 1 midnight
[2019-12-09] MEDS: Rosuvastatin 20 MG TAB PO SCH (20:09)
[2019-12-10] MEDS: HYDROcodone/Acetaminophen 5/325 mg Tablet PO PRN (04:23)
[2019-12-10 04:55] LABS: Anion Gap 10 mmol/L (10-20); BUN (Urea Nitrogen) 39 mg/dL (9.8-20.1); Calc. Creatinine Clearance 19 mL/min (70-130); Calcium 8.1 mg/dL (7.8-10.44); Carbon Dioxide 27 mmol/L (23-31); Chloride 105 mmol/L (98-107); Estimated GFR-MDRD 25; Glucose 118 mg/dL (83-110); Magnesium 1.9 mg/dL (1.6-2.6); Potassium 4.1 mmol/L (3.5-5.1); Sodium 138 mmol/L (136-145)
[2019-12-10] MEDS: Furosemide 20 MG/2 ML VIAL SLOW IVP SCH (05:08)
--- NOTE | 2019-12-10 08:48 | PDOC.CPN ---
- Subjective Date: 12/10/19 Time: 08:30 Interval history: Ms. Vazquez is awake, up on side of bed, daughter at bedside. She denies any cardiac complaints or concerns. Denies dizziness and/or lightheadedness, palpitations. She reports her swelling today is comparable to the usual swelling she has at home. No overnight events on telemetry. - Review of Systems General: denies: fever/chills, weight/appetite/sleep changes, night sweats, fatigue Respiratory: denies: cough, congestion, shortness of breath, exercise intolerance Cardiovascular: reports: edema. denies: chest pain, palpitation, paroxysmal nocturnal dyspnea, orthopnea Gastrointestinal: denies: nausea, vomiting, diarrhea, constipation, abd pain, GI bleeding Musculoskeletal: denies: pain, tenderness, stiffness, swelling, arthritis/ arthralgias Neurological: denies: numbness, syncope, seizure, weakness - Objective Allergies/Adverse Reactions: Allergies Allergy/AdvReac Type Severity Reaction Status Date / Time influenza virus vaccine, Allergy Verified 10/04/18 10:10 specific Visit Medications: Current Medications Acetaminophen (Tylenol) 650 mg PO Q4H PRN PRN Reason: Headache/Fever/Mild Pain (1-3) Acetaminophen (Tylenol) 650 mg UT Q4H PRN PRN Reason: Headache/Fever/Mild Pain (1-3) Hydrocodone Bitart/Acetaminophen ([place] 5/325) 1 tab PO Q4H PRN PRN Reason: Moderate Pain (4-6) Last Admin: 12/10/19 04:23 Dose: 1 tab Hydrocodone Bitart/Acetaminophen ([place] 5/325) 2 tab PO Q4H PRN PRN Reason: Severe Pain (7-10) Aspirin (Aspirin Chewable) 81 mg PO DAILY [facility] Last Admin: 12/09/19 08:32 Dose: 81 mg Carvedilol (Coreg) 6.25 mg PO BID-[facility] Last Admin: 12/09/19 17:38 Dose: 6.25 mg Furosemide (Lasix) 20 mg PO DAILY [facility] Hydralazine HCl (Apresoline) 10 mg SLOW IVP Q6H PRN PRN Reason: SBP>170 Last Admin: 12/08/19 16:02 Dose: 10 mg Hydralazine HCl (Apresoline) 50 mg PO BID [facility] Last Admin: 12/09/19 20:09 Dose: 50 mg Lisinopril (Zestril) 40 mg PO DAILY [facility] Last Admin: 12/09/19 08:32 Dose: 40 mg Rosuvastatin Calcium (Crestor) 40 mg PO HS [facility] Last Admin: 12/09/19 20:09 Dose: 40 mg Vital Signs & Weight: Vital Signs Temp Pulse Resp BP Pulse Ox 12/10/19 07:35 98.3 F 57 L 16 102/46 L 96 12/10/19 03:45 98.5 F 63 20 100/44 L 96 12/10/19 00:39 98 Admit Weight 127 lb 1.164 oz Weight 124 lb 8 oz - Quality Measures Condition: Coronary Artery Disease CV meds: Beta Beck: Yes, PERCY/ARB: Yes, Statin: Yes, ASA: Yes, Plavix/Effient/ Brilinta: No, Anticoagulant: No - Medication Contraindications No Antithrombotic reason: Treatment not indicated No Anticoagulant reason: Treatment not indicated - Physical Exam General: alert & oriented x3, appears well, no apparent distress HEENT: mucus membranes moist Neck: supple neck, no JVD/HJR Cardiac: regular rate and rhythm, no murmur, S1/S2 Lungs: clear to auscultation, no wheeze, rales, rhonchi Neuro: grossly intact Abdomen: active bowel sounds, soft, non-tender Extremities: no cyanosis, no clubbing, 1+ LE edema Skin: clear - Labs Result Diagrams: 12/07/19 10:36 12/10/19 04:08 Troponin/CKMB Troponin I 0.041 ng/mL (< 0.028) H 12/07/19 18:46 - Assessment/Plan Assessment/Plan: Assessment: 1. Acute on chronic diastolic HF, EF 55-60% 2. CAD, S/P CABG-no anginal symptoms 3. Sinus Bradycardia-stable on current carvedilol dose 4. Moderate Mitral Regurgitation, normal LA size 5. HTN-too low 6. CKD Stage 3-creatinine up to 1.97. Stop IV furosemide, repeat BMP in am. 7. Hypercholesterolemia-LDL 37, continue statin. Plan: Stop amlodipine 2/2 hypotension, localized edema, stop hydralazine. Transition to PO furosemide. Repeat BMP tomorrow am, probably discharge home tomorrow. 0930: Manual systolic 100 per primary nurse, will hold antihypertensives this am , decrease lisinopril to 20mg.
[2019-12-10] MEDS: Aspirin Chewable 81 MG TAB PO SCH (09:03)
[2019-12-10] MEDS: hydrALAZINE 25 MG TAB PO SCH (09:26)
[2019-12-10] MEDS: Carvedilol 6.25 MG TAB PO SCH ×2 (09:29→17:19)
[2019-12-10] MEDS: Lisinopril 20 MG TAB PO SCH (09:30)
--- NOTE | 2019-12-10 14:25 | PDOC.HOSPP ---
- Subjective Encounter Date: 12/10/19 Encounter Time: 09:00 Subjective: overnight, borderline hypotensive, asymptomatic. On encounter, feels well with no complaints. - Objective Vital Signs & Weight: Vital Signs (12 hours) Temp Pulse Pulse Pulse Resp BP BP 12/10/19 11:45 98.0 F 62 16 12/10/19 10:22 59 L 59 L 126/48 L 111/47 L 12/10/19 07:35 98.3 F 57 L 16 12/10/19 03:45 98.5 F 63 20 BP Pulse Ox Pulse Ox Pulse Ox 12/10/19 11:45 112/52 L 99 12/10/19 10:22 98 98 12/10/19 07:35 102/46 L 96 12/10/19 03:45 100/44 L 96 Weight Admit Weight 127 lb 1.164 oz Weight 124 lb 8 oz I&O: 12/09/19 12/10/19 12/11/19 06:59 06:59 06:59 Intake Total 962 1372 Output Total 2300 850 Balance -1338 522 Result Diagrams: 12/07/19 10:36 12/10/19 04:08 Hospitalist ROS - Review of Systems Constitutional: denies: fever, chills, sweats, weakness Respiratory: denies: cough, dry, shortness of breath Cardiovascular: denies: chest pain, palpitations, orthopnea Gastrointestinal: denies: nausea, vomiting, abdominal pain, diarrhea Genitourinary: denies: dysuria, frequency, incontinence, hematuria - Medication Medications: Active Medications Generic Name Dose Route Start Last Admin Trade Name Freq PRN Reason Stop Dose Admin Hydrocodone Bitart/Acetaminophen 1 tab 12/07/19 12:23 12/10/19 04:23 [place] 5/325 PO 1 tab Q4H PRN Administration Moderate Pain (4-6) Aspirin 81 mg 12/08/19 09:00 12/10/19 09:03 Aspirin Chewable PO 81 mg DAILY LEXX Administration Carvedilol 6.25 mg 12/08/19 17:00 12/10/19 09:29 Coreg PO Not Given BID-WM LEXX Rosuvastatin Calcium 40 mg 12/07/19 21:00 12/09/19 20:09 Crestor PO 40 mg HS LEXX Administration - Exam General Appearance: NAD, awake alert Heart: RRR, no murmur, no gallops Respiratory: CTAB, no wheezes, no rales, no ronchi Gastrointestinal: soft, non-tender, non-distended, normal bowel sounds Extremities: 2+ LE edema Extremities - other findings: unchanged Psychiatric: normal affect, normal behavior, A&O x 3 Hosp A/P - Plan #ADITI -likely prerenal due to diuresis -hold antihtn and lasix, lisinopril due to ADITI #lower extremity edema -contine lasix and treatment for CHFpEF per cardiology, who recommends patient to remain inpatient overnight #HTN well controlled; goal < 130/80 due to history of CAD per [facility] ELOS: 1 midnight
[2019-12-10] MEDS: Rosuvastatin 20 MG TAB PO SCH (20:31)
[2019-12-11 05:06] LABS: Anion Gap 10 mmol/L (10-20); BUN (Urea Nitrogen) 51 mg/dL (9.8-20.1); Calc. Creatinine Clearance 18 mL/min (70-130); Calcium 7.8 mg/dL (7.8-10.44); Carbon Dioxide 27 mmol/L (23-31); Chloride 105 mmol/L (98-107); Estimated GFR-MDRD 23; Glucose 99 mg/dL (83-110); Potassium 4.5 mmol/L (3.5-5.1); Sodium 137 mmol/L (136-145)
[2019-12-11] MEDS ORDERED: Furosemide 20 MG TAB PO SCH (09:00)
[2019-12-11] MEDS ORDERED: Lisinopril 20 MG TAB PO SCH (09:00)
[2019-12-11] MEDS: Carvedilol 6.25 MG TAB PO SCH ×2 (09:32→18:32)
[2019-12-11] MEDS: Aspirin Chewable 81 MG TAB PO SCH (09:32)
[2019-12-11] MEDS: hydrALAZINE 25 MG TAB PO SCH ×2 (09:33→21:02)
--- NOTE | 2019-12-11 14:13 | PDOC.HOSPP ---
- Subjective Encounter Date: 12/11/19 Encounter Time: 08:00 Subjective: no overnight events. this morning, feeling well and has no complaints. - Objective Vital Signs & Weight: Vital Signs (12 hours) Temp Pulse Pulse Pulse Resp BP BP 12/11/19 13:18 70 60 139/53 L 12/11/19 12:00 60 12/11/19 09:33 61 125/51 L 12/11/19 09:32 125/51 L 12/11/19 08:00 97.8 F 61 18 12/11/19 03:49 98.4 F 65 18 BP BP Pulse Ox Pulse Ox Pulse Ox 12/11/19 13:18 112/47 L 98 98 12/11/19 12:00 115/49 L 12/11/19 09:33 12/11/19 09:32 12/11/19 08:00 125/51 L 96 12/11/19 03:49 113/47 L 97 Weight Admit Weight 127 lb 1.164 oz Weight 118 lb 11.2 oz I&O: 12/10/19 12/11/19 12/12/19 06:59 06:59 06:59 Intake Total 1372 1070 Output Total 850 1900 Balance 522 -830 Result Diagrams: 12/07/19 10:36 12/11/19 04:19 Hospitalist ROS - Review of Systems Constitutional: denies: fever, chills, sweats, weakness, malaise, other Respiratory: denies: cough, dry, shortness of breath, hemoptysis, SOB with excertion, pleuritic pain, sputum, wheezing, other Cardiovascular: denies: chest pain, palpitations, orthopnea, paroxysmal noc. dyspnea, edema, light headedness, other Gastrointestinal: denies: nausea, vomiting, abdominal pain, diarrhea, constipation, melena, hematochezia, other Genitourinary: denies: dysuria, frequency, incontinence, hematuria, retention, other - Medication Medications: Active Medications Generic Name Dose Route Start Last Admin Trade Name Freq PRN Reason Stop Dose Admin Hydrocodone Bitart/Acetaminophen 1 tab 12/07/19 12:23 12/10/19 04:23 [place] 5/325 PO 1 tab Q4H PRN Administration Moderate Pain (4-6) Aspirin 81 mg 12/08/19 09:00 12/11/19 09:32 Aspirin Chewable PO 81 mg DAILY LEXX Administration Carvedilol 6.25 mg 12/08/19 17:00 12/11/19 09:32 Coreg PO 6.25 mg BID-WM LEXX Administration Hydralazine HCl 25 mg 12/11/19 09:00 12/11/19 09:33 Apresoline PO 25 mg BID LEXX Administration Rosuvastatin Calcium 40 mg 12/07/19 21:00 12/10/19 20:31 Crestor PO 40 mg HS LEXX Administration - Exam General Appearance: NAD, awake alert Neck: no JVD Heart: RRR, no murmur, no gallops, no rubs Respiratory: CTAB, no wheezes, no rales, no ronchi Gastrointestinal: soft, non-tender, non-distended, normal bowel sounds Extremities: 2+ LE edema Extremities - other findings: unchanged Psychiatric: normal affect, normal behavior, A&O x 3 Hosp A/P - Plan #ADITI -likely prerenal due to diuresis, reduced preload and effective perfusion -Cr platueing -hold antihtn and lasix, lisinopril due to ADITI; #lower extremity edema -unchanged. after renal function improves, will restart gentle diuresis #HTN well controlled; goal < 130/80 due to history of CAD per [facility] ELOS: 1 midnight
[2019-12-11] MEDS: Rosuvastatin 20 MG TAB PO SCH (21:03)
[2019-12-11] MEDS: HYDROcodone/Acetaminophen 5/325 mg Tablet PO PRN (21:06)
[2019-12-12 05:28] LABS: Anion Gap 8 mmol/L (10-20); BUN (Urea Nitrogen) 52 mg/dL (9.8-20.1); Calc. Creatinine Clearance 20 mL/min (70-130); Calcium 7.8 mg/dL (7.8-10.44); Carbon Dioxide 26 mmol/L (23-31); Chloride 106 mmol/L (98-107); Estimated GFR-MDRD 27; Glucose 112 mg/dL (83-110); Magnesium 2.2 mg/dL (1.6-2.6); Potassium 4.2 mmol/L (3.5-5.1); Sodium 136 mmol/L (136-145)
[2019-12-12] MEDS: Carvedilol 6.25 MG TAB PO SCH (08:27)
[2019-12-12] MEDS: hydrALAZINE 25 MG TAB PO SCH (08:28)
[2019-12-12] MEDS: Aspirin Chewable 81 MG TAB PO SCH (08:28)
[2019-12-12] MEDS ORDERED: Furosemide 20 MG TAB PO SCH (09:00)
[2019-12-12 12:39] VITALS: BP 145/58; TEMP 97.3
--- NOTE | 2019-12-13 04:59 | DIS ---
DATE OF ADMISSION: 12/10/2019 DATE OF DISCHARGE: 12/12/2019 HOSPITAL COURSE: Ms. Vazquez is an 84-year-old female with medical history of hypertension, coronary artery disease, who presented with bilateral lower extremity swelling and elevated BNP. She was diagnosed with heart failure with preserved ejection fraction as per Cardiology, and hypertensive emergency. Antihypertensives were modified as per Cardiology recommendations, and the patient was started on Lasix. The patient's swelling improved during the course of inpatient stay. The patient developed acute kidney injury, Lasix was held, and kidney function improved on the day of discharge. She was discharged home hemodynamically stable with no complaints. PHYSICAL EXAMINATION: VITAL SIGNS: Blood pressure 145/58, temperature 97.3, pulse 59, respiratory rate 18, oxygen saturation 98% on room air. GENERAL: Lying comfortably in bed. Alert. HEENT: Normocephalic, atraumatic. No JVD. HEART: Regular rhythm, borderline bradycardic. No murmur, rubs, or gallops. LUNGS: Clear to auscultation bilaterally. No wheezing, rales, or rhonchi. EXTREMITIES: Bilateral equal pitting edema up to knee level, improved compared to admission. PSYCHIATRIC: Proper mood and affect. Alert and oriented x3. MEDICATIONS: New medications: 1. Coreg 6.25 mg p.o. b.i.d. 2. Hydralazine 25 mg p.o. b.i.d. as per Cardiology. 3. Rosuvastatin 40 mg at bedtime per Cardiology. Continued medications: 1. Aspirin. 2. Lasix. DISCONTINUED MEDICATIONS: 1. Hydralazine 25 t.i.d. 2. Atorvastatin 80 mg at bedtime. 3. Atenolol as per Cardiology. The patient was discharged with followup appointment with Cardiology within 7 days. Job ID: [id number]
== END 2019-12-12 14:30 | disposition home or self-care (01) | DRG 291 ==
LOC: ERS 09:50 → ERHOLD 12:35 → 2NO 15:41 → OBSVTOIN 12-10 16:45
PROVIDERS: ADMIT Internal Medicine; ATTEND Internal Medicine
DX: I13.0 Hypertensive heart and chronic kidney disease with heart failure and stage 1 through stage 4 chronic kidney disease, or unspecified chronic kidney disease (principal); I50.33 Acute on chronic diastolic (congestive) heart failure; I16.1 Hypertensive emergency; N17.9 Acute kidney failure, unspecified; I25.10 Atherosclerotic heart disease of native coronary artery without angina pectoris; E78.5 Hyperlipidemia, unspecified; E78.00 Pure hypercholesterolemia, unspecified; N18.3 Chronic kidney disease, stage 3 (moderate); I34.0 Nonrheumatic mitral (valve) insufficiency; R00.1 Bradycardia, unspecified; I95.9 Hypotension, unspecified; Z87.891 Personal history of nicotine dependence; Z87.11 Personal history of peptic ulcer disease; Z90.49 Acquired absence of other specified parts of digestive tract; Z95.1 Presence of aortocoronary bypass graft; Z88.7 Allergy status to serum and vaccine; Z79.899 Other long term (current) drug therapy; Z79.82 Long term (current) use of aspirin; I25.2 Old myocardial infarction; Z95.5 Presence of coronary angioplasty implant and graft
CPT/HCPCS: 36415; 71045; 80048; 80053; 80061; 83036; 83735; 83880; 84443; 84484; 85025; 93005; 93306; 93798; 93970; 94760; 96374; 96375; 96376; G0378; J0360; J1940; J3475

== ENCOUNTER 2020-05-01 17:54 | Inpatient (IN) | payer MEDICARE, SELFPAY ==
--- NOTE | 2020-05-01 18:41 | RAD ---
Chest one view HISTORY: Weakness. COMPARISON: 12/07/2019. FINDINGS: Cardiac silhouette is magnified and enlarged. Pulmonary vasculature now within normal limit s. Mediastinum is midline with postoperative changes. No lobar consolidation or evidence of pneumothorax . Metallic clips overlie the gallbladder fossa. IMPRESSION : Cardiomegaly, stable. No active cardiopulmonary abnormalities are demonstrated.
[2020-05-01 18:50] LABS: INR-International Normal Ratio 1.4; PTT 38.2 sec (22.9-36.1); Prothrombin Time 17.5 sec (12.0-14.7)
[2020-05-01 18:56] LABS: #Eosinphils 0.1 thou/uL (0.0-0.7); #Lymphocytes 1.4 thou/uL (1.20-3.40); #Monocytes 0.5 thou/uL (0.11-0.59); #Neutrophils 4.1 thou/uL (1.40-6.50); %Basophils 0.7 % (0.0-1.0); %Lymphocytes 23.3 % (21.0-51.0); %Monocytes 8.1 % (0.0-10.0); %Neutrophils 66.9 % (42.0-75.0); Hemoglobin 4.2 g/dL (12.0-16.0); Mean Corpuscular HGB CONC 34.1 g/dL (32.0-36.0); Mean Corpuscular Hemoglobin 34.5 pg (27.0-31.0); Mean Platelet Volume 10.1 fL (7.4-10.4); Platelet Count 65 thou/uL (130-400); RBC Distribution Width 15.5 % (11.5-14.5); White Blood Cell (WBC) Count 6.1 thou/uL (4.8-10.8)
[2020-05-01] MEDS ORDERED: Pantoprazole 40 MG VIAL ONE (19:02)
[2020-05-01] MEDS ORDERED: Meclizine HCl 25 MG TAB ONE (19:02)
[2020-05-01 19:09] LABS: ALT (SGPT) 14 U/L (8-55); AST (SGOT) 31 U/L (5-34); Albumin 2.5 g/dL (3.4-4.8); Alkaline Phosphatase 76 U/L (40-110); Anion Gap 13 mmol/L (10-20); BUN (Urea Nitrogen) 69 mg/dL (9.8-20.1); Bilirubin, Total 0.5 mg/dL (0.2-1.2); Calc. Creatinine Clearance 0 mL/min (70-130); Calcium 8.2 mg/dL (7.8-10.44); Carbon Dioxide 25 mmol/L (23-31); Chloride 104 mmol/L (98-107); Estimated GFR-MDRD 28; Globulin 2.7 g/dL (2.4-3.5); Glucose 124 mg/dL (83-110); Lipase 252 U/L (8-78); Potassium 3.6 mmol/L (3.5-5.1); Protein, Total 5.2 g/dL (6.0-8.3); Sodium 138 mmol/L (136-145)
--- NOTE | 2020-05-01 19:13 | CT ---
CT head noncontrast HISTORY: Dizziness. FINDINGS: There is no evidence of acute intracranial hemorrhage or infarct. Ventricles appear normal in size, shape and position. Mild diffuse cortical atrophy. No mass effect or shift of midline structures. 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 IMPRESSION : No acute intracranial abnormalities are demonstrated.
[2020-05-01] MEDS ORDERED: cefTRIAXone\\ROCEPHIN 1 GM VIAL ONE (20:11)
[2020-05-01 20:17] LABS: Bilirubin Negative (Negative); Blood, Urine 2+ (Negative); Clarity Clear (Clear); Glucose, Urine (Dipstick) Normal (Negative); Ketone, Urine Negative (Negative); Leukocyte 500 Leu/uL (Negative); Nitrite Negative (Negative); Protein, Urine (Dipstick) Negative (Neg-Trace); RBC/HPF 0-3 HPF (0-3); Specific Gravity, Urine 1.012 (1.002-1.036); Squamous Epithelial 0-3 HPF (0-3); Urobilinogen Normal mg/dL (Less than 2); pH, Urine 6.5 (5.0-9.0)
[2020-05-01 20:18] LABS: Bacteria/HPF 1+ HPF (None Seen)
--- NOTE | 2020-05-01 21:43 | PDOC.HHP ---
Hospitalist HPI - History of Present Illness Dizziness History of Present Illness: 84-year-old woman with a history of peptic ulcer disease presented to the emergency department with a complaint of dizziness onset 4 days ago. Patient also reports melena and intermittent coffee-ground emesis. She has a history of coronary disease status post CABG is on baby aspirin daily. She denied any abdominal pain. Hemoglobin in the ED is noted to be 4. Patient had an episode of coffee-ground emesis in the ED. Rectal examination revealed melena. Dr. Nobles has been informed. Patient started on Protonix drip. 2 units of PRBC transfusion is ordered. She is admitted for further management. Hospitalist ROS - Review of Systems Other: Except as documented, all other systems reviewed and negative. - Medication Medications: Medication Instructions Recorded Confirmed Type Furosemide 20 mg PO DAILY 04/17/13 12/07/19 History Aspirin [Aspirin EC] 81 mg PO DAILY 12/07/19 12/07/19 History Carvedilol [Coreg] 6.25 mg PO BID-WM #60 tab 12/12/19 Rx Rosuvastatin [Crestor] 40 mg PO HS #60 tab 12/12/19 Rx hydrALAZINE [Apresoline] 25 mg PO BID #60 tab 12/12/19 Rx Hospitalist History - Past Medical History Cardiac: reports: CAD, HTN, Hyperlipidemia Gastrointestinal: reports: Peptic ulcer disease - Past Surgical History Past Surgical History: reports: Cholecystectomy, CABG - Family History Family History: reports: cardiac disorder, diabetes mellitus - Social History Smoking Status: Never smoker Alcohol: reports: None Drugs: reports: none Living Situation: With Family - Exam General Appearance: NAD, awake alert Eye: PERRL, anicteric sclera ENT: moist mucosa Neck: supple, no JVD Heart: RRR, no murmur, no gallops, no rubs Respiratory: CTAB, no wheezes, no rales, no ronchi Gastrointestinal: soft, non-tender, non-distended, normal bowel sounds Extremities: no cyanosis, no edema Skin: normal turgor, no rashes Hospitalist Results - Labs Result Diagrams: 05/02/20 00:41 05/01/20 18:26 Lab results: WBC 6.1 thou/uL (4.8-10.8) 05/01/20 18:26 Hgb 4.2 g/dL (12.0-16.0) L* 05/01/20 18:26 Hct 12.2 % (36.0-47.0) L* 05/01/20 18:26 MCV 101.0 fL (78.0-98.0) H 05/01/20 18:26 Plt Count 65 thou/uL (130-400) L 05/01/20 18:26 Neutrophils % 66.9 % (42.0-75.0) 05/01/20 18:26 Sodium 138 mmol/L (136-145) 05/01/20 18:26 Potassium 3.6 mmol/L (3.5-5.1) 05/01/20 18:26 Chloride 104 mmol/L (98-107) 05/01/20 18:26 Carbon Dioxide 25 mmol/L (23-31) 05/01/20 18:26 BUN 69 mg/dL (9.8-20.1) H 05/01/20 18:26 Creatinine 1.76 mg/dL (0.6-1.1) H 05/01/20 18:26 Glucose 124 mg/dL (83-110) H 05/01/20 18:26 Calcium 8.2 mg/dL (7.8-10.44) 05/01/20 18:26 Total Bilirubin 0.5 mg/dL (0.2-1.2) 05/01/20 18:26 AST 31 U/L (5-34) 05/01/20 18:26 ALT 14 U/L (8-55) 05/01/20 18:26 Alkaline Phosphatase 76 U/L (40-110) 05/01/20 18: Troponin I 0.026 ng/mL (< 0.028) 05/01/20 18:26 Serum Total Protein 5.2 g/dL (6.0-8.3) L 05/01/20 18:26 Albumin 2.5 g/dL (3.4-4.8) L 05/01/20 18: Lipase 252 U/L (8-78) H 05/01/20 18:26 Urine Ketones Negative mg/dL (Negative) 05/01/20 20:08 Urine Blood 2+ (Negative) A 05/01/20 20:08 Urine Nitrite Negative (Negative) 05/01/20 20:08 Ur Leukocyte Esterase 500 Marguerite/uL (Negative) A 05/01/20 20:08 Urine RBC 0-3 HPF (0-3) 05/01/20 20:08 Urine WBC 4-6 HPF (0-3) A 05/01/20 20:08 Ur Squamous Epith Cells 0-3 HPF (0-3) 05/01/20 20:08 Urine Bacteria 1+ HPF (None Seen) A 05/01/20 20:08 Hospitalist H&P A/P - Problem (1) Acute blood loss anemia Code(s): D62 - ACUTE POSTHEMORRHAGIC ANEMIA Status: Acute (2) GI bleed Code(s): K92.2 - GASTROINTESTINAL HEMORRHAGE, UNSPECIFIED Status: Acute (3) PUD (peptic ulcer disease) Code(s): K27.9 - PEPTIC ULC, SITE UNSP, UNSP AC OR CHR, W/O HEMOR OR PERF Status: Acute (4) CAD (coronary artery disease) Code(s): I25.10 - ATHSCL HEART DISEASE OF [place] CORONARY ARTERY W/O ANG PCTRS Status: Acute (5) HTN (hypertension) Code(s): I10 - ESSENTIAL (PRIMARY) HYPERTENSION Status: Acute - Plan Plan: Admit to medical floor. 2 units of PRBC transfusion is ordered. Patient started on Protonix drip. GI consulted. Monitor H&H every 6 hours. Transfuse as needed for target hemoglobin greater than 7. Discontinue aspirin. IV hydration. Patient is full code. Surrogate decision maker is her son Jonah Vazquez.
[2020-05-01] MEDS ORDERED: Pantoprazole 80 MG in Sodium Chloride 0.9% 100 ML IVPB SCH (22:00)
[2020-05-02] MEDS: Lactated Ringer's 1,000 ML IV SCH ×2 (00:07→06:10)
[2020-05-02 01:08] LABS: Hemoglobin 5.7 g/dL (12.0-16.0)
[2020-05-02 02:44] VITALS: BMI 21.2
[2020-05-02 09:06] LABS: #Lymphocytes 1.3 thou/uL (1.20-3.40); #Monocytes 0.5 thou/uL (0.11-0.59); %Basophils 0.3 % (0.0-1.0); %Eosinophils 0.8 % (0.0-10.0); %Lymphocytes 22.5 % (21.0-51.0); %Monocytes 8.2 % (0.0-10.0); %Neutrophils 68.2 % (42.0-75.0); Hemoglobin 8.9 g/dL (12.0-16.0); INR-International Normal Ratio 1.4; Mean Corpuscular HGB CONC 34.2 g/dL (32.0-36.0); Mean Corpuscular Hemoglobin 32.4 pg (27.0-31.0); Mean Corpuscular Volume 94.6 fL (78.0-98.0); Mean Platelet Volume 10.2 fL (7.4-10.4); Platelet Count 55 thou/uL (130-400); Prothrombin Time 17.2 sec (12.0-14.7); Red Blood Cell (RBC) Count 2.74 mill/uL (4.20-5.40); White Blood Cell (WBC) Count 5.9 thou/uL (4.8-10.8)
[2020-05-02 09:31] LABS: ALT (SGPT) 13 U/L (8-55); AST (SGOT) 34 U/L (5-34); Albumin 2.4 g/dL (3.4-4.8); Alkaline Phosphatase 72 U/L (40-110); Anion Gap 9 mmol/L (10-20); BUN (Urea Nitrogen) 63 mg/dL (9.8-20.1); Bilirubin, Total 1.5 mg/dL (0.2-1.2); Calc. Creatinine Clearance 20 mL/min (70-130); Carbon Dioxide 25 mmol/L (23-31); Chloride 108 mmol/L (98-107); Estimated GFR-MDRD 28; Globulin 2.5 g/dL (2.4-3.5); Glucose 102 mg/dL (83-110); Potassium 3.6 mmol/L (3.5-5.1); Protein, Total 4.9 g/dL (6.0-8.3); Sodium 138 mmol/L (136-145)
[2020-05-02] MEDS ORDERED: PROPOFOL 200 MG/20 ML VIAL ONE (09:52)
[2020-05-02] MEDS ORDERED: Lidocaine 1% PF 5 ML VIAL ONE (09:52)
--- NOTE | 2020-05-02 10:21 | CON ---
DATE OF CONSULTATION: 05/01/2020 REASON FOR CONSULTATION: Profound anemia, history of melena, and one episode of coffee-ground emesis in the ER. HISTORY OF PRESENT ILLNESS: Nora Vazquez is a very pleasant 84-year-old female, brought to the ER by the family. The patient had been having generalized weakness, fatigue, and dizziness over the last at least a month. . Also had mild dizziness off and on. The patient had seen the primary care doctor on 04/23/2020. She had some routine blood tests and was found to have mild anemia. A week ago, her hemoglobin was 10, hematocrit 29.8. The patient noticed black tarry stool approximately about 3-4 days ago. Stools are black and tarry. She also had emesis as per the granddaughter, the emesis was coffee-ground. No fresh blood seen. Had an episode of emesis in the ER this evening and again, a small amount of coffee-ground material seen. She had a CBC done in the ER and she was found to have profound anemia. The hemoglobin is 4.2, hematocrit 18.2, MCV 101. She has also had thrombocytopenia with platelet count of 65,000. The patient does not take any blood thinners. She does not take aspirin on a regular basis. Does not take any NSAID medication. The patient had seen me, I believe, in September 2018. She came to the ER with abdominal pain, nausea, vomiting, and abdominal CAT scan shows thickening of the gastric wall. An EGD done by me in September 2018 demonstrated gastric ulcer. She was placed on PPI. She has not seen me after the EGD almost 18 months ago. The patient did not have any abdominal pain recently. The pain is over the epigastric area. The pain is mild to moderate. There is also a history of unexplained weight loss. She has no relevant history. ALLERGIES: NONE. SOCIAL HISTORY: The patient does not smoke or drink alcohol. MEDICAL ILLNESS: 1. Hypertension. 2. Coronary artery disease-CHF. 3. Back pain. 4. Chronic stomach pain. 5. Hyperlipidemia. 6. Gastric ulcer in 2019. MEDICATIONS: List reviewed. PAST SURGICAL HISTORY: 1. Status post coronary artery bypass graft. 2. Coronary artery stent placement. 3. Hysterectomy. 4. Cholecystectomy. 5. EGD and biopsy in 2019. FAMILY HISTORY: Brother, cancer. Sister has gastric cancer. REVIEW OF SYSTEMS: CONSTITUTIONAL: History of weight loss, poor appetite, generalized weakness, and fatigue. No fever or chills. HEAD: Has been having some dizziness lately. EYES: No impaired vision. No diplopia. ENT: No hearing loss. No nose bleed. No sore throat. NECK: No stiffness or any limitation of movement. LUNGS: No history of chronic coughing, hemoptysis, or dyspnea. CARDIOVASCULAR: No chest pain. No palpitation. No dyspnea, orthopnea, or PND. GI: Abdominal pain, nausea, vomiting, and black tarry stool. : No dysuria or hematuria. MUSCULOSKELETAL: History of back pain. NEUROPSYCHIATRY: Nonrelevant. PHYSICAL EXAMINATION: GENERAL: A fragile-looking elderly female, appears comfortable. She is in no distress. VITAL SIGNS: Pulse is only 54, mostly from beta-blockers. Blood pressure 130/76. HEENT: Conjunctivae are clear. NECK: Supple. CARDIOVASCULAR: Normal heart sounds. LUNGS: Clear to auscultation. ABDOMEN: Soft. Abdomen is nondistended. Abdomen is tender in the epigastric area. There is no rebound or guarding. No masses. EXTREMITIES: Reveal no edema. LABORATORY DATA: Rectal exam done by the ER MD showed tarry stool, otherwise, positive occult blood. CLINICAL IMPRESSION: 1. An 84-year-old female presenting with tarry stool over the last 3 to 4 days. She is also anemic, which is chronic in nature. Most recent CBC a week ago showed hemoglobin at 10, hematocrit 29.8. Today, her hemoglobin is 4.2. The patient has anemia, she also has thrombocytopenia, which are unclear. Based on the history, I believe she mostly has upper gastrointestinal bleeding or possibly bleeding from small bowel. 2. Hypertension. 3. Hyperlipidemia. 4. Chronic acid reflux. 5. Gastric ulcer in 2019. 6. History of congestive heart failure. 7. Status post coronary artery bypass graft. 8. Hysterectomy. 9. Cholecystectomy. RECOMMENDATIONS: 1. IV PPI. 2. Transfuse. 3. We will defer endoscopy studies until tomorrow. Once blood count comes back at reasonable level, I will plan for EGD . Depending upon the EGD findings, I will make further recommendation. Job ID: [id number]
[2020-05-02 12:16] LABS: SARS-CoV-2 MS2 Positive; SARS-CoV-2 N Gene Negative; SARS-CoV-2 S Gene Negative; SARS-CoV-2 by NAA Not Detected (NotDetected); SARS-CoV-2 orf1ab Negative
--- NOTE | 2020-05-02 15:31 | PDOC.HOSPP ---
- Subjective Encounter Date: 05/02/20 Encounter Time: 15:29 Subjective: Patient seen briefly in follow-up of GI- Bleed.. She was being prepared to go for EGD. She has not had any further episodes of bleeding. - Objective Vital Signs & Weight: Vital Signs (12 hours) Temp Pulse Pulse Resp BP BP BP 05/02/20 11:38 97.5 F L 55 L 18 189/49 H 05/02/20 08:21 97.5 F L 51 L 12 148/46 H 05/02/20 08:03 97.5 F L 53 L 18 151/54 H 05/02/20 05:40 97.6 F 55 L 18 149/56 H 05/02/20 05:27 97.6 F 55 L 18 144/55 H 05/02/20 05:10 97.5 F L 59 L 18 131/53 L 05/02/20 04:40 97.5 F L 59 L 18 131/53 L 05/02/20 04:35 97.5 F L 59 L 18 131/53 L Pulse Ox 05/02/20 11:38 99 05/02/20 08:21 100 05/02/20 08:03 05/02/20 05:40 100 05/02/20 05:27 100 05/02/20 05:10 100 05/02/20 04:40 100 05/02/20 04:35 100 Weight Weight 116 lb 0.116 oz I&O: 05/01/20 05/02/20 05/03/20 06:59 06:59 06:59 Intake Total 350 350 Balance 350 350 Result Diagrams: 05/02/20 08:46 05/02/20 08:46 Hospitalist ROS - Medication Medications: Active Medications Generic Name Dose Route Start Last Admin Trade Name Freq PRN Reason Stop Dose Admin Pantoprazole Sodium 80 mg/ 100 mls @ 10 mls/hr 05/01/20 22:00 05/02/20 09:01 Sodium Chloride IVPB 100 mls INF LEXX Administration - Exam Eye: PERRL, anicteric sclera Heart: RRR, no murmur, no gallops, no rubs, normal peripheral pulses Respiratory: CTAB, no wheezes, no rales, no ronchi, normal chest expansion, no tachypnea, normal percussion Gastrointestinal: soft, non-tender, non-distended, normal bowel sounds, no palpable masses, no hepatomegaly Extremities: no cyanosis Hosp A/P (1) GI bleed Code(s): K92.2 - GASTROINTESTINAL HEMORRHAGE, UNSPECIFIED Status: Acute (2) Acute blood loss anemia Code(s): D62 - ACUTE POSTHEMORRHAGIC ANEMIA Status: Acute (3) CAD (coronary artery disease) Code(s): I25.10 - ATHSCL HEART DISEASE OF [place] CORONARY ARTERY W/O ANG PCTRS Status: Chronic (4) HTN (hypertension) Code(s): I10 - ESSENTIAL (PRIMARY) HYPERTENSION Status: Chronic - Plan * GI- Bleed with acute blood loss anemia- her H&H has improved after transfusion * Continue IV Protonix * She is going for EGD now * HTN- blood pressure is elevated, and heart rate is slow- will add Hydralazine as needed * CAD- stable
[2020-05-02] MEDS ORDERED: hydrALAZINE 25 MG TAB PO PRN (18:25)
[2020-05-02] MEDS: Pantoprazole 40 MG VIAL IVP SCH (20:41)
--- NOTE | 2020-05-03 00:23 | OP ---
DATE OF PROCEDURE: 05/02/2020 PROCEDURE PERFORMED: Esophagogastroduodenoscopy with control of hemorrhage, biopsy. INDICATIONS FOR PROCEDURE: Hematemesis, melena. DESCRIPTION OF PROCEDURE: After the risks and benefits of the procedure were explained to the patient, including risks of bleeding, infection, perforation, reactions to anesthesia, aspiration, and/or pain, informed consent was obtained. The patient was then taken to the endoscopy suite where she was maneuvered into the left lateral decubitus position, followed by introduction of deep sedation via propofol and anesthesia support. Once adequate sedation was achieved, the standard gastroscope was introduced into the mouth with intubation of the esophagus, stomach, and the proximal small intestines with the findings listed below. The patient tolerated the procedure well with no immediate perioperative complications. On conclusion of the procedure, all equipment was removed from the patient and she was transferred to PACU in satisfactory condition. FINDINGS: Esophagus: Normal-appearing mucosa was seen in the proximal, mid, and distal esophagus. There was no evidence of erosions, ulcerations, mass lesions, or active/recent bleeding. Stomach: [id number] amount of retained blood clot as well as some bright red blood was seen throughout the entire stomach that initially obscured the gastric mucosa, especially in the cardia/fundus. However, with aggressive irrigation and suctioning, this was able to be cleared to obtain adequate views of the gastric mucosa. With adequate visualization of the gastric mucosa, a small visible vessel measuring approximately 1 mm in diameter was seen in the gastric cardia adjacent to the gastroesophageal junction. It exhibited mild oozing of blood with just direct visualization and irrigation with sterile water. However, with manipulation with the bipolar cautery probe, it exhibited significantly increased bleeding and was ultimately intervened upon with bipolar cautery with good hemostasis achieved. At the end of the maneuver, there was no additional bleeding noted. Otherwise, mild mucosal erythema was seen throughout the entire stomach, but no other evidence of erosions, ulcerations, or mass lesions. Biopsies were taken at random points throughout the stomach for evaluation of her possible H. pylori status (previous EGD in September 2018 showed H. pylori infection with unknown treatment afterwards). Duodenum: A small amount of retained blood was seen in both the duodenal bulb and second portion of the duodenum. Upon irrigation and suctioning, normal-appearing mucosa was seen in the duodenal bulb and second portion. There was no evidence of erosions, ulcerations, mass lesions, or active/recent bleeding. IMPRESSION: 1. 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 2. Mild mucosal erythema seen throughout the entire stomach concerning for the presence of continued Helicobacter pylori infection. 3. No presence of erosions or ulcerations in the entire stomach as previously seen on prior esophagogastroduodenoscopy. RECOMMENDATIONS: 1. Would continue to trend the patient's H and H and transfuse as necessary to maintain an H and H of 7/. 2. Continue to monitor clinically for signs of active GI bleeding. 3. Would continue the patient on PPI, but can transfer her to pantoprazole 40 mg IV b.i.d. 4. Would avoid any NSAIDs or anticoagulation for at least the next 48 hours given the intervention done today. 5. If the patient's H and H remain stable overnight and no further episodes of melena or hematemesis, she could be potentially considered for discharge and follow up in the outpatient clinic with Dr. Dave. We will continue to follow. Please call with any questions. Job ID: [id number]
[2020-05-03 05:26] LABS: #Eosinphils 0.3 thou/uL (0.0-0.7); #Lymphocytes 1.7 thou/uL (1.20-3.40); #Monocytes 0.6 thou/uL (0.11-0.59); #Neutrophils 3.8 thou/uL (1.40-6.50); %Basophils 0.4 % (0.0-1.0); %Eosinophils 4.3 % (0.0-10.0); %Lymphocytes 26.9 % (21.0-51.0); %Monocytes 9.4 % (0.0-10.0); Hemoglobin 7.7 g/dL (12.0-16.0); Mean Corpuscular HGB CONC 34.7 g/dL (32.0-36.0); Mean Corpuscular Hemoglobin 32.6 pg (27.0-31.0); Mean Platelet Volume 9.9 fL (7.4-10.4); Platelet Count 58 thou/uL (130-400); RBC Distribution Width 15.8 % (11.5-14.5); Red Blood Cell (RBC) Count 2.36 mill/uL (4.20-5.40); White Blood Cell (WBC) Count 6.4 thou/uL (4.8-10.8)
[2020-05-03 05:42] LABS: Anion Gap 9 mmol/L (10-20); BUN (Urea Nitrogen) 56 mg/dL (9.8-20.1); Calc. Creatinine Clearance 22 mL/min (70-130); Calcium 7.9 mg/dL (7.8-10.44); Carbon Dioxide 23 mmol/L (23-31); Chloride 109 mmol/L (98-107); Estimated GFR-MDRD 31; Glucose 98 mg/dL (83-110); Potassium 3.3 mmol/L (3.5-5.1); Sodium 138 mmol/L (136-145)
[2020-05-03] MEDS ORDERED: Potassium Chloride 20 MEQ in Premix Bag 1 BAG IVPB SCH (08:15)
[2020-05-03] MEDS: Carvedilol 6.25 MG TAB PO SCH ×2 (08:59→16:25)
[2020-05-03] MEDS: Pantoprazole 40 MG VIAL IVP SCH (09:00)
[2020-05-03] MEDS ORDERED: Loratadine 10 MG TAB PO PRN (15:05)
--- NOTE | 2020-05-03 15:07 | PDOC.HOSPP ---
- Subjective Encounter Date: 05/03/20 Encounter Time: 15:06 Subjective: Ms. Vazquez was seen today in follow-up of GI Bleed. She does not have any complaints. She is asking about going home. - Objective Vital Signs & Weight: Vital Signs (12 hours) Temp Pulse Resp BP BP Pulse Ox 05/03/20 11:58 97.9 F 59 L 18 120/70 99 05/03/20 08:59 170/53 H 05/03/20 08:15 97.6 F 60 18 170/53 H 100 05/03/20 08:00 100 05/03/20 03:41 97.6 F 56 L 16 151/74 H 100 Weight Weight 116 lb 0.116 oz I&O: 05/02/20 05/03/20 05/04/20 06:59 06:59 06:59 Intake Total 350 410 Balance 350 410 Result Diagrams: 05/03/20 04:53 05/03/20 04:53 Hospitalist ROS - Medication Medications: Active Medications Generic Name Dose Route Start Last Admin Trade Name Freq PRN Reason Stop Dose Admin Carvedilol 6.25 mg 05/03/20 08:00 05/03/20 08:59 Carvedilol 6.25 Mg Tab PO 6.25 mg BID-WM LEXX Administration Pantoprazole Sodium 40 mg 05/02/20 21:00 05/03/20 09:00 Pantoprazole 40 Mg Vial IVP 40 mg Q12HR LEXX Administration Sodium Chloride 10 ml 05/01/20 21:38 05/02/20 20:41 Flush - Normal Saline 10 Ml Syringe IVF 10 ml PRN PRN Administration Saline Flush - Exam Eye: PERRL, anicteric sclera Heart: RRR, no murmur, no gallops, no rubs, normal peripheral pulses Respiratory: CTAB, no wheezes, no rales, no ronchi, normal chest expansion, no tachypnea, normal percussion Gastrointestinal: soft, non-tender, non-distended, normal bowel sounds, no palpable masses, no hepatomegaly Extremities: no cyanosis, no edema Hosp A/P (1) GI bleed Code(s): K92.2 - GASTROINTESTINAL HEMORRHAGE, UNSPECIFIED Status: Acute (2) Acute blood loss anemia Code(s): D62 - ACUTE POSTHEMORRHAGIC ANEMIA Status: Acute (3) CAD (coronary artery disease) Code(s): I25.10 - ATHSCL HEART DISEASE OF [place] CORONARY ARTERY W/O ANG PCTRS Status: Chronic (4) HTN (hypertension) Code(s): I10 - ESSENTIAL (PRIMARY) HYPERTENSION Status: Chronic - Plan * GI- Bleed with acute blood loss anemia- She was found to have a Dieulafoy lesion in the gastric cadia, which was oozing, and cauterized * Her hemoglobin was 7.7 today * Will watch overnight to ensure stability * Change Protnix to p.o. * HTN- blood pressure is elevated, and heart rate is slow- - will re-start her home medications * CAD- stable * Hopefully home tomorrow if ok with GI
[2020-05-03] MEDS: hydrALAZINE 25 MG TAB PO SCH (20:56)
[2020-05-03] MEDS ORDERED: Rosuvastatin 20 MG TAB PO SCH (21:00)
[2020-05-03] MEDS ORDERED: Benzocaine (Dental) 7 GM TUBE TOP PRN (21:08)
[2020-05-04 06:36] LABS: #Eosinphils 0.2 thou/uL (0.0-0.7); #Lymphocytes 1.7 thou/uL (1.20-3.40); #Monocytes 0.6 thou/uL (0.11-0.59); #Neutrophils 2.9 thou/uL (1.40-6.50); %Basophils 0.6 % (0.0-1.0); %Eosinophils 3.3 % (0.0-10.0); %Lymphocytes 30.9 % (21.0-51.0); %Monocytes 11.3 % (0.0-10.0); %Neutrophils 53.9 % (42.0-75.0); Mean Corpuscular HGB CONC 34.5 g/dL (32.0-36.0); Mean Corpuscular Hemoglobin 33.4 pg (27.0-31.0); Mean Platelet Volume 9.4 fL (7.4-10.4); Platelet Count 67 thou/uL (130-400); RBC Distribution Width 15.9 % (11.5-14.5); White Blood Cell (WBC) Count 5.4 thou/uL (4.8-10.8)
[2020-05-04 06:41] LABS: Anion Gap 10 mmol/L (10-20); BUN (Urea Nitrogen) 42 mg/dL (9.8-20.1); Calc. Creatinine Clearance 22 mL/min (70-130); Calcium 7.7 mg/dL (7.8-10.44); Carbon Dioxide 22 mmol/L (23-31); Chloride 111 mmol/L (98-107); Estimated GFR-MDRD 31; Glucose 90 mg/dL (83-110); Potassium 3.8 mmol/L (3.5-5.1); Sodium 139 mmol/L (136-145)
[2020-05-04] MEDS: hydrALAZINE 25 MG TAB PO SCH (08:29)
[2020-05-04] MEDS: Carvedilol 6.25 MG TAB PO SCH (08:29)
--- NOTE | 2020-05-04 16:31 | PDOC.DS.DS ---
Provider - Provider Date of Admission: 05/01/20 20:42 Date of Discharge: 05/04/20 Admitting Provider: Joshua Andre MD Consultations: Gastroentrology (Dr. Mercado) Primary Care Physician: [facility] Course - Hospital Course Hospital Course: Discharge diagnosis: 1. Acute blood loss anemia 2. GI bleed 3. Dieulafoy lesion 4. Chronic kidney disease stage III 5. Hypokalemia 6. COVID-19 test negative Hospital course: Patient is a pleasant 84-year-old lady who was admitted to the hospital on May 01, 2020 for acute blood loss anemia secondary to GI bleed. She received packed RBC transfusion. She was seen by gastroenterology service. She underwent EGD on May 03, 2020, which showed a Dieulafoy lesion, which was cauterized. She also had mild mucosal erythema throughout the entire stomach concerning for the presence of continued Helicobacter pylori infection. She is advised to follow-up with gastroenterology service for the biopsy result. She has been started on Protonix 40 mg 2 times a day. She has been advised to stop her aspirin for 48 hours before resuming. She is being discharged home in stable condition. On the day of discharge patient has sodium 139, potassium 3.8, creatinine 1.58, white count 5400 and hemoglobin 8.0. Platelet count is 67,000. - Labs Lab Results: 05/04/20 12:46 05/04/20 05:24 Abnormal Lab Results - Last 48 hrs 05/03/20 04:53: Potassium 3.3 L, Chloride 109 H, Anion Gap 9 L, BUN 56 H, Creatinine 1.60 H 05/03/20 04:53: RBC 2.36 L, Hgb 7.7 L, Hct 22.2 L, MCH 32.6 H, RDW 15.8 H, Plt Count 58 L, Monocytes # 0.6 H 05/04/20 05:24: Chloride 111 H, Carbon Dioxide 22 L, BUN 42 H, Creatinine 1.58 H, Calcium 7.7 L 05/04/20 05:24: RBC 2.10 L, Hgb 7.0 L, Hct 20.4 L, MCH 33.4 H, RDW 15.9 H, Plt Count 67 L, Monocytes % 11.3 H, Monocytes # 0.6 H 05/04/20 12:46: Hgb 8.0 L, Hct 23.9 L Microbiology - Entire Visit 05/01/20 18:42 Stool - Pending Stool Occult Blood (MANDY) - Final - Physical Exam Vitals: Vital Signs (12 hours) Temp Pulse Resp BP Pulse Ox 05/04/20 12:00 98.7 F 73 16 117/43 L 98 05/04/20 08:29 73 05/04/20 07:41 98.7 F 62 16 117/43 L 98 Weight Weight 116 lb 0.116 oz Physical Exam: The patient was seen and examined on the day of discharge. Patient denies chest pain or shortness of breath. Vital signs are stable. S1 and S2 are heard. Lungs are clear to auscultation bilaterally. Problem - Time spent with Patient (mins): 33 Plan - Discharge Medications Prescriptions: Pantoprazole [Protonix] 40 mg PO BID #60 tab Home Medications: Medication Instructions Recorded Confirmed Type Furosemide 20 mg PO DAILY 04/17/13 05/02/20 History Carvedilol [Coreg] 6.25 mg PO BID-WM #60 tab 12/12/19 05/02/20 Rx Rosuvastatin [Crestor] 40 mg PO HS #60 tab 12/12/19 05/02/20 Rx hydrALAZINE [Apresoline] 25 mg PO BID #60 tab 12/12/19 05/02/20 Rx Aspirin [Aspirin EC] 81 mg PO DAILY #0 05/04/20 05/02/20 Rx Pantoprazole [Protonix] 40 mg PO BID #60 tab 05/04/20 Rx Allergies: influenza virus vaccine, specific Allergy (Verified 10/04/18 10:10) - Discharge Instructions Discharge Instructions:: Resume aspirin on May 07, 2020. Seek medical help for black stools or blood in stool. Follow-up with gastroenterology service for biopsy result. Activity:: Activity as Tolerated Nourishment:: Heart Healthy Diet - Follow up Plan Referrals: [facility] [Primary Care Provider] - 3 Days Parisa Dave MD [Active] - 10 Days Disposition: HOME Quality - Care Measures CORE MEASURES:: N/A
[2020-05-04 16:49] VITALS: BP 124/43; TEMP 98
--- NOTE | 2020-05-06 13:08 | PRG ---
DATE OF SERVICE: 05/03/2020 SUBJECTIVE: This is a very pleasant 84-year-old [place] female, seen in the ER 2 days ago with profound anemia, abdominal pain and also underwent EGD by Dr. Candido Mercado yesterday. 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 No abdominal pain, no nausea or vomiting. She is still passing black tarry stool mostly . She is still on clear liquid diet. Her lab data showed hemoglobin on admission was 4.2, came up to 5.7, to 8.9 yesterday. It is dropping down to 7.7 . PHYSICAL EXAMINATION: GENERAL: She is fragile looking VITAL SIGNS: She is afebrile, pulse is , blood pressure is 120/70. CARDIOVASCULAR: . No LABORATORY DATA: CBC; WBC 6400, hemoglobin 7.7, . Chemistry panel showed heart healthy diet Recommend . Advised to come back and see me in the clinic in 2 weeks. Job ID: [id number]
--- NOTE | 2020-05-11 12:14 | EKG ---
Test Reason : Blood Pressure : / mmHG Vent. Rate : 062 BPM Atrial Rate : 062 BPM P-R Int : 196 ms QRS Dur : 134 ms QT Int : 522 ms P-R-T Axes : 045 -63 074 degrees QTc Int : 529 ms Normal sinus rhythm Left axis deviation Right bundle branch block Abnormal ECG [place] inversion since December Confirmed by SAMANTHA MURRAY ([id number]), editorial clerk JAMES ROWELL ([id number]) on 05/11/2020 12:14:39 PM Referred By: Confirmed By:SAMANTHA MURRAY
== END 2020-05-04 17:50 | disposition home or self-care (01) | DRG 378 ==
LOC: ERS 17:54 → SURG A 20:42 → SJJU 05-02 17:58 → SURG A 05-02 18:09
PROVIDERS: ADMIT Internal Medicine; ATTEND Internal Medicine
PROC: 30233N1 Transfusion of Nonautologous Red Blood Cells into Peripheral Vein, Percutaneous Approach (ICD-10-PCS; 2020-05-01)
PROC: 0DB68ZX Excision of Stomach, Via Natural or Artificial Opening Endoscopic, Diagnostic (ICD-10-PCS; principal; 2020-05-02)
PROC: 0D548ZZ Destruction of Esophagogastric Junction, Via Natural or Artificial Opening Endoscopic (ICD-10-PCS; 2020-05-02)
DX: K31.82 Dieulafoy lesion (hemorrhagic) of stomach and duodenum (principal); D62 Acute posthemorrhagic anemia; E78.5 Hyperlipidemia, unspecified; Z20.828 Contact with and (suspected) exposure to other viral communicable diseases; K27.9 Peptic ulcer, site unspecified, unspecified as acute or chronic, without hemorrhage or perforation; I12.9 Hypertensive chronic kidney disease with stage 1 through stage 4 chronic kidney disease, or unspecified chronic kidney disease; Z90.710 Acquired absence of both cervix and uterus; K21.9 Gastro-esophageal reflux disease without esophagitis; N18.30 Chronic kidney disease, stage 3 unspecified; I25.10 Atherosclerotic heart disease of native coronary artery without angina pectoris; E87.6 Hypokalemia; Z95.1 Presence of aortocoronary bypass graft; Z79.82 Long term (current) use of aspirin; Z90.49 Acquired absence of other specified parts of digestive tract; I25.2 Old myocardial infarction; Z88.7 Allergy status to serum and vaccine
CPT/HCPCS: 36415; 36430; 70450; 71045; 80048; 80053; 81003; 81015; 82274; 83690; 84484; 85025; 85610; 85730; 86850; 86900; 86901; 87635; 88305; 88312; 93005; 96365; 96375; C9113; J0696; J2704; J3480; J3490; P9016; U0003

== ENCOUNTER 2020-05-10 10:59 | Emergency (ER) | payer MEDICARE ==
[2020-05-10 13:43] LABS: #Eosinphils 0.3 thou/uL (0.0-0.7); #Lymphocytes 1.3 thou/uL (1.20-3.40); #Monocytes 0.3 thou/uL (0.11-0.59); #Neutrophils 2.3 thou/uL (1.40-6.50); %Basophils 0.8 % (0.0-1.0); %Eosinophils 6.5 % (0.0-10.0); %Lymphocytes 31.4 % (21.0-51.0); %Monocytes 6.9 % (0.0-10.0); %Neutrophils 54.4 % (42.0-75.0); Hemoglobin 7.9 g/dL (12.0-16.0); Mean Corpuscular HGB CONC 32.3 g/dL (32.0-36.0); Mean Corpuscular Hemoglobin 31.6 pg (27.0-31.0); Mean Corpuscular Volume 97.8 fL (78.0-98.0); Mean Platelet Volume 8.8 fL (7.4-10.4); Platelet Count 85 thou/uL (130-400); RBC Distribution Width 14.5 % (11.5-14.5); Red Blood Cell (RBC) Count 2.51 mill/uL (4.20-5.40); White Blood Cell (WBC) Count 4.2 thou/uL (4.8-10.8)
[2020-05-10 14:35] LABS: ALT (SGPT) 31 U/L (8-55); AST (SGOT) 42 U/L (5-34); Albumin 2.7 g/dL (3.4-4.8); Alkaline Phosphatase 119 U/L (40-110); Anion Gap 11 mmol/L (10-20); BUN (Urea Nitrogen) 29 mg/dL (9.8-20.1); Bilirubin, Total 0.7 mg/dL (0.2-1.2); Calc. Creatinine Clearance 0 mL/min (70-130); Calcium 8.4 mg/dL (7.8-10.44); Carbon Dioxide 23 mmol/L (23-31); Chloride 110 mmol/L (98-107); Estimated GFR-MDRD 25; Globulin 3.1 g/dL (2.4-3.5); Glucose 93 mg/dL (83-110); Potassium 4.2 mmol/L (3.5-5.1); Protein, Total 5.8 g/dL (6.0-8.3); Sodium 140 mmol/L (136-145)
--- NOTE | 2020-05-11 17:14 | EKG ---
Test Reason : Blood Pressure : / mmHG Vent. Rate : 047 BPM Atrial Rate : 047 BPM P-R Int : 152 ms QRS Dur : 140 ms QT Int : 548 ms P-R-T Axes : 101 -54 027 degrees QTc Int : 484 ms Sinus bradycardia Right bundle branch block Left anterior fascicular block Bifascicular block Left ventricular hypertrophy with repolarization abnormality Cannot rule out Septal infarct , age undetermined Abnormal ECG Confirmed by ELIZABETH CHAMORRO DO ([id number]), marketing editor JAMES ROWELL ([id number]) on 05/11/2020 5:13:34 PM Referred By: Confirmed By:ELIZABETH CHAMORRO DO
== END 2020-05-10 15:59 | disposition home or self-care (01) ==
LOC: ERS 10:59
DX: D64.9 Anemia, unspecified (principal); I12.9 Hypertensive chronic kidney disease with stage 1 through stage 4 chronic kidney disease, or unspecified chronic kidney disease; N18.4 Chronic kidney disease, stage 4 (severe); R79.89 Other specified abnormal findings of blood chemistry; I25.2 Old myocardial infarction
CPT/HCPCS: 36415; 80053; 83880; 84484; 85025; 86140; 93005

== ENCOUNTER 2020-11-12 14:16 | Outpatient (CLI) | payer MEDICARE | END 2020-11-12 14:17 | disposition home or self-care (01) | LOC: BICCT 14:16 | PROVIDERS: ATTEND Nurse Practitioner Family | DX: R10.11 Right upper quadrant pain (principal); E78.5 Hyperlipidemia, unspecified; I25.10 Atherosclerotic heart disease of native coronary artery without angina pectoris; I13.0 Hypertensive heart and chronic kidney disease with heart failure and stage 1 through stage 4 chronic kidney disease, or unspecified chronic kidney disease; I50.9 Heart failure, unspecified; N18.30 Chronic kidney disease, stage 3 unspecified; D63.1 Anemia in chronic kidney disease; E87.6 Hypokalemia; R53.1 Weakness; R41.3 Other amnesia; R89.9 Unspecified abnormal finding in specimens from other organs, systems and tissues; Z95.5 Presence of coronary angioplasty implant and graft | CPT/HCPCS: 71250; 74177 ==

== ENCOUNTER 2021-11-11 10:06 | Inpatient (IN) | payer OTHER, MEDICARE ==
[2021-11-11 10:45] LABS: #Eosinphils 0.3 thou/uL (0.0-0.7); #Lymphocytes 1.1 thou/uL (1.20-3.40); #Monocytes 0.3 thou/uL (0.11-0.59); #Neutrophils 4.5 thou/uL (1.40-6.50); %Basophils 0.3 % (0.0-1.0); %Eosinophils 4.3 % (0.0-10.0); %Lymphocytes 17.1 % (21.0-51.0); %Monocytes 5.4 % (0.0-10.0); %Neutrophils 72.9 % (42.0-75.0); Hemoglobin 8.7 g/dL (12.0-16.0); Mean Corpuscular HGB CONC 32.6 g/dL (32.0-36.0); Mean Corpuscular Hemoglobin 33.5 pg (27.0-31.0); Mean Platelet Volume 9.6 fL (7.4-10.4); Platelet Count 63 thou/uL (130-400); RBC Distribution Width 12.6 % (11.5-14.5); Red Blood Cell (RBC) Count 2.61 mill/uL (4.20-5.40); White Blood Cell (WBC) Count 6.1 thou/uL (4.8-10.8)
[2021-11-11 11:01] LABS: ALT (SGPT) 14 U/L (8-55); AST (SGOT) 31 U/L (5-34); Albumin 2.7 g/dL (3.4-4.8); Alkaline Phosphatase 86 U/L (40-110); Anion Gap 10 mmol/L (10-20); BUN (Urea Nitrogen) 27 mg/dL (9.8-20.1); Bilirubin, Total 0.9 mg/dL (0.2-1.2); Calc. Creatinine Clearance 0 mL/min (70-130); Calcium 8.4 mg/dL (7.8-10.44); Carbon Dioxide 24 mmol/L (23-31); Chloride 111 mmol/L (98-107); Globulin 3.1 g/dL (2.4-3.5); Glucose 111 mg/dL (83-110); Lipase 120 U/L (8-78); Protein, Total 5.8 g/dL (5.8-8.1); Sodium 141 mmol/L (136-145)
[2021-11-11] MEDS ORDERED: ceFAZolin 2 GM/Dextrose 50 ML 2 GM in Premix Bag 1 BAG IVPB SCH (11:45)
[2021-11-11] MEDS ORDERED: Ondansetron PF 4 MG/2 ML Vial ONE ×2 (11:47→18:13)
[2021-11-11] MEDS ORDERED: Morphine 4 MG/ML VIAL ONE (11:47)
[2021-11-11] MEDS ORDERED: hydrALAZINE 20 MG/ML VIAL SLOW IVP PRN (11:52)
[2021-11-11] MEDS ORDERED: Ondansetron ODT 4 MG TAB PO PRN (11:52)
[2021-11-11] MEDS ORDERED: Morphine 2 MG/ML VIAL SLOW IVP PRN (11:52)
[2021-11-11] MEDS ORDERED: Promethazine HCl 25 MG/ML VIAL IM PRN (11:52)
[2021-11-11] MEDS ORDERED: Ondansetron PF 4 MG/2 ML Vial IVP PRN (11:52)
[2021-11-11] MEDS ORDERED: Acetaminophen 500 MG TAB PO SCH (12:15)
[2021-11-11] MEDS ORDERED: Sodium Chloride 0.9% 1,000 ML IV SCH (12:15)
[2021-11-11 12:42] LABS: SARS-CoV-2 NAA Rapid Test Not Detected (NotDetected)
[2021-11-11] MEDS ORDERED: CEFAZOLIN 2 GM VIAL ONE (16:56)
[2021-11-11] MEDS ORDERED: Sodium Chloride 0.9% 100 ML ONE (16:57)
[2021-11-11] MEDS ORDERED: Fentanyl 100 MCG/2 ML VIAL ONE ×2 (17:31→19:35)
[2021-11-11] MEDS ORDERED: fentaNYL Citrate/PF 100 MCG/2 ML SYRINGE ONE (17:50)
[2021-11-11] MEDS ORDERED: Dexmedetomidine 200 MCG/2 ML VIAL ONE (17:50)
[2021-11-11] MEDS ORDERED: Lidocaine 1% PF 5 ML VIAL ONE (18:13)
[2021-11-11] MEDS ORDERED: ePHEDrine 50 MG/ML VIAL ONE (18:13)
[2021-11-11] MEDS ORDERED: PROPOFOL 200 MG/20 ML VIAL ONE (18:13)
[2021-11-11 22:49] VITALS: BMI 25.7
[2021-11-11] MEDS: Acetaminophen 500 MG TAB PO SCH ×2 (23:22)
[2021-11-11] MEDS: Famotidine/PF 20 mg/2ml Vial SLOW IVP SCH (23:24)
[2021-11-12] MEDS: CEFAZOLIN 2 GM in Sodium Chloride 0.9% 100 ML IVPB SCH ×4 (00:56→23:57)
[2021-11-12] MEDS ORDERED: traMADol HCl 50 MG TAB PO SCH ×2 (03:15→21:00)
[2021-11-12] MEDS ORDERED: Cyclobenzaprine 10 MG TAB PO SCH (03:30)
[2021-11-12] MEDS: Acetaminophen 500 MG TAB PO SCH ×2 (05:41→11:58)
[2021-11-12 05:54] LABS: #Eosinphils 0.1 thou/uL (0.0-0.7); #Monocytes 0.5 thou/uL (0.11-0.59); #Neutrophils 4.6 thou/uL (1.40-6.50); %Basophils 0.3 % (0.0-1.0); %Eosinophils 0.9 % (0.0-10.0); %Lymphocytes 16.1 % (21.0-51.0); %Monocytes 8.5 % (0.0-10.0); %Neutrophils 74.2 % (42.0-75.0); Hemoglobin 6.2 g/dL (12.0-16.0); Mean Corpuscular HGB CONC 32.9 g/dL (32.0-36.0); Mean Corpuscular Hemoglobin 33.6 pg (27.0-31.0); Mean Platelet Volume 9.2 fL (7.4-10.4); Platelet Count 57 thou/uL (130-400); RBC Distribution Width 12.7 % (11.5-14.5); Red Blood Cell (RBC) Count 1.86 mill/uL (4.20-5.40); White Blood Cell (WBC) Count 6.2 thou/uL (4.8-10.8)
[2021-11-12 06:16] LABS: Anion Gap 12 mmol/L (10-20); BUN (Urea Nitrogen) 33 mg/dL (9.8-20.1); Calc. Creatinine Clearance 17 mL/min (70-130); Calcium 8.1 mg/dL (7.8-10.44); Carbon Dioxide 23 mmol/L (23-31); Chloride 110 mmol/L (98-107); Glucose 98 mg/dL (83-110); Magnesium 1.6 mg/dL (1.6-2.6); Phosphorus 4.5 mg/dL (2.3-4.7); Potassium 4.4 mmol/L (3.5-5.1); Sodium 141 mmol/L (136-145)
[2021-11-12] MEDS ORDERED: Magnesium Sulfate 3 GM in Sodium Chloride 0.9% 100 ML IVPB SCH (06:30)
[2021-11-12 07:06] LABS: #Eosinphils 0.1 thou/uL (0.0-0.7); #Lymphocytes 1.3 thou/uL (1.20-3.40); #Monocytes 0.5 thou/uL (0.11-0.59); #Neutrophils 4.6 thou/uL (1.40-6.50); %Basophils 0.1 % (0.0-1.0); %Eosinophils 0.8 % (0.0-10.0); %Lymphocytes 19.5 % (21.0-51.0); %Monocytes 8.2 % (0.0-10.0); %Neutrophils 71.4 % (42.0-75.0); Mean Corpuscular HGB CONC 32.2 g/dL (32.0-36.0); Mean Corpuscular Hemoglobin 33.2 pg (27.0-31.0); Mean Platelet Volume 8.7 fL (7.4-10.4); Platelet Count 57 thou/uL (130-400); RBC Distribution Width 12.7 % (11.5-14.5); White Blood Cell (WBC) Count 6.5 thou/uL (4.8-10.8)
[2021-11-12] MEDS: Sodium Chloride 0.9% 1,000 ML IV SCH ×2 (07:40→20:42)
[2021-11-12 08:04] LABS: Bacteria/HPF None Seen HPF (None Seen); Bilirubin Negative (Negative); Blood, Urine Negative (Negative); Clarity Clear (Clear); Glucose, Urine (Dipstick) Normal (Negative); Ketone, Urine Trace mg/dL (Negative); Leukocyte Negative Leu/uL (Negative); Nitrite Negative (Negative); Protein, Urine (Dipstick) 20 mg/dL (Neg-Trace); RBC/HPF 0-3 HPF (0-3); Specific Gravity, Urine 1.019 (1.002-1.036); Squamous Epithelial 0-3 HPF (0-3); Urobilinogen Normal mg/dL (Less than 2); pH, Urine 5.5 (5.0-9.0)
[2021-11-12 08:07] LABS: Urine Culture Reflex Yes Yes
[2021-11-12] MEDS: hydrALAZINE 25 MG TAB PO SCH ×3 (08:30→20:46)
[2021-11-12] MEDS: Famotidine/PF 20 mg/2ml Vial SLOW IVP SCH (08:30)
[2021-11-12] MEDS: Ferrous Sulfate 325 MG TAB PO SCH ×2 (08:30→17:56)
[2021-11-12] MEDS: Furosemide 20 MG TAB PO SCH (08:30)
[2021-11-12] MEDS: Ascorbic Acid 500 mg Chewable Tablet PO SCH ×2 (08:30→20:42)
[2021-11-12] MEDS ORDERED: Famotidine/PF 20 mg/2ml Vial SLOW IVP SCH (09:00)
[2021-11-12] MEDS ORDERED: Sodium Chloride 0.9% 500 ML IV SCH (14:30)
[2021-11-12 15:59] LABS: #Eosinphils 0.2 thou/uL (0.0-0.7); #Lymphocytes 1.2 thou/uL (1.20-3.40); #Monocytes 0.5 thou/uL (0.11-0.59); #Neutrophils 4.7 thou/uL (1.40-6.50); %Basophils 0.4 % (0.0-1.0); %Eosinophils 2.4 % (0.0-10.0); %Monocytes 7.5 % (0.0-10.0); %Neutrophils 71.7 % (42.0-75.0); Hemoglobin 8.5 g/dL (12.0-16.0); Mean Corpuscular HGB CONC 32.8 g/dL (32.0-36.0); Mean Corpuscular Hemoglobin 32.3 pg (27.0-31.0); Mean Corpuscular Volume 98.3 fL (78.0-98.0); Mean Platelet Volume 9.5 fL (7.4-10.4); Platelet Count 48 thou/uL (130-400); RBC Distribution Width 15.7 % (11.5-14.5); Red Blood Cell (RBC) Count 2.62 mill/uL (4.20-5.40); White Blood Cell (WBC) Count 6.6 thou/uL (4.8-10.8)
[2021-11-12] MEDS: Acetaminophen/Codeine 30-300mg Tablet PO SCH ×2 (17:57→23:40)
[2021-11-12] MEDS ORDERED: Aspirin 81 mg Enteric Coated Tablet PO SCH (19:30)
[2021-11-12 19:54] LABS: Troponin I 0.027 ng/mL (< 0.028)
[2021-11-12] MEDS ORDERED: Lorazepam 0.5 MG TAB PO SCH (19:54)
[2021-11-12] MEDS: Tamsulosin HCl 0.4 MG CAP PO SCH (20:40)
[2021-11-12] MEDS ORDERED: Rosuvastatin 20 MG TAB PO SCH (21:00)
[2021-11-12] MEDS ORDERED: Rosuvastatin 10 MG TAB PO SCH (21:00)
[2021-11-12] MEDS ORDERED: Melatonin 3 MG TAB PO PRN (23:17)
[2021-11-13] MEDS: Acetaminophen/Codeine 30-300mg Tablet PO SCH (05:19)
[2021-11-13] MEDS ORDERED: Sodium Chloride 0.9% 500 ML IV SCH (05:45)
[2021-11-13 06:23] LABS: #Eosinphils 0.3 thou/uL (0.0-0.7); #Monocytes 0.5 thou/uL (0.11-0.59); %Basophils 0.9 % (0.0-1.0); %Lymphocytes 20.1 % (21.0-51.0); %Monocytes 10.2 % (0.0-10.0); %Neutrophils 62.9 % (42.0-75.0); Hemoglobin 6.7 g/dL (12.0-16.0); Mean Corpuscular HGB CONC 32.3 g/dL (32.0-36.0); Mean Corpuscular Hemoglobin 31.8 pg (27.0-31.0); Mean Corpuscular Volume 98.3 fL (78.0-98.0); Mean Platelet Volume 9.3 fL (7.4-10.4); Platelet Count 40 thou/uL (130-400); RBC Distribution Width 16.1 % (11.5-14.5); Red Blood Cell (RBC) Count 2.11 mill/uL (4.20-5.40); White Blood Cell (WBC) Count 4.8 thou/uL (4.8-10.8)
[2021-11-13 06:34] LABS: Anion Gap 10 mmol/L (10-20); BUN (Urea Nitrogen) 38 mg/dL (9.8-20.1); Calc. Creatinine Clearance 13 mL/min (70-130); Calcium 7.2 mg/dL (7.8-10.44); Carbon Dioxide 22 mmol/L (23-31); Chloride 111 mmol/L (98-107); Glucose 104 mg/dL (83-110); Magnesium 2.3 mg/dL (1.6-2.6); Phosphorus 4.6 mg/dL (2.3-4.7); Sodium 139 mmol/L (136-145)
[2021-11-13 07:43] LABS: Hemoglobin 6.8 g/dL (12.0-16.0)
[2021-11-13] MEDS ORDERED: Hydrocortisone Sod Succ/PF 100 mg/2 ml Vial IVP SCH ×2 (08:45→14:00)
[2021-11-13] MEDS ORDERED: Famotidine/PF 20 mg/2ml Vial SLOW IVP SCH (09:00)
[2021-11-13] MEDS: hydrALAZINE 25 MG TAB PO SCH ×2 (09:03→20:44)
[2021-11-13] MEDS: Aspirin 81 mg Enteric Coated Tablet PO SCH (09:03)
[2021-11-13] MEDS: CEFAZOLIN 2 GM in Sodium Chloride 0.9% 100 ML IVPB SCH ×2 (09:03→17:09)
[2021-11-13] MEDS: Polyethylene Glycol 3350 17 GM Packet PO SCH (09:04)
[2021-11-13] MEDS: Senokot S 8.6-50 MG TAB PO SCH ×2 (09:04→20:43)
[2021-11-13] MEDS: Ferrous Sulfate 325 MG TAB PO SCH ×2 (09:04→17:09)
[2021-11-13] MEDS: Ascorbic Acid 500 mg Chewable Tablet PO SCH ×2 (09:04→20:42)
[2021-11-13] MEDS: Furosemide 20 MG TAB PO SCH (09:04)
[2021-11-13] MEDS: Acetaminophen 500 MG TAB PO SCH ×3 (10:21→20:42)
[2021-11-13] MEDS ORDERED: Furosemide 40 MG/4 ML VIAL SLOW IVP SCH (12:45)
[2021-11-13] MEDS ORDERED: Sodium Bicarbonate 100 MEQ in Dextrose 5% in Water 1,000 ML IV SCH (15:00)
[2021-11-13] MEDS: Tamsulosin HCl 0.4 MG CAP PO SCH (20:42)
[2021-11-13] MEDS: Melatonin 3 MG TAB PO SCH (20:42)
[2021-11-13] MEDS: Atorvastatin Calcium 40 MG TAB PO SCH (20:44)
[2021-11-14] MEDS: CEFAZOLIN 2 GM in Sodium Chloride 0.9% 100 ML IVPB SCH (01:34)
[2021-11-14] MEDS: Acetaminophen 500 MG TAB PO SCH ×5 (04:22→21:23)
[2021-11-14 06:42] LABS: #Lymphocytes 0.5 thou/uL (1.20-3.40); #Monocytes 0.5 thou/uL (0.11-0.59); %Basophils 0.1 % (0.0-1.0); %Eosinophils 0.1 % (0.0-10.0); %Lymphocytes 7.3 % (21.0-51.0); %Monocytes 7.6 % (0.0-10.0); %Neutrophils 84.9 % (42.0-75.0); Hemoglobin 8.5 g/dL (12.0-16.0); Mean Corpuscular HGB CONC 32.7 g/dL (32.0-36.0); Mean Corpuscular Hemoglobin 31.7 pg (27.0-31.0); Mean Platelet Volume 9.8 fL (7.4-10.4); Platelet Count 33 thou/uL (130-400); RBC Distribution Width 15.2 % (11.5-14.5); Red Blood Cell (RBC) Count 2.68 mill/uL (4.20-5.40); White Blood Cell (WBC) Count 7.1 thou/uL (4.8-10.8)
[2021-11-14 07:37] LABS: Anion Gap 13 mmol/L (10-20); BUN (Urea Nitrogen) 42 mg/dL (9.8-20.1); Calc. Creatinine Clearance 12 mL/min (70-130); Calcium 7.4 mg/dL (7.8-10.44); Carbon Dioxide 21 mmol/L (23-31); Chloride 106 mmol/L (98-107); Glucose 164 mg/dL (83-110); Magnesium 2.4 mg/dL (1.6-2.6); Phosphorus 4.4 mg/dL (2.3-4.7); Potassium 4.4 mmol/L (3.5-5.1); Sodium 136 mmol/L (136-145)
[2021-11-14] MEDS ORDERED: Furosemide 40 MG/4 ML VIAL SLOW IVP SCH (08:45)
[2021-11-14] MEDS: Ascorbic Acid 500 mg Chewable Tablet PO SCH ×2 (08:52→21:24)
[2021-11-14] MEDS: Aspirin 81 mg Enteric Coated Tablet PO SCH (08:52)
[2021-11-14] MEDS: hydrALAZINE 25 MG TAB PO SCH ×2 (08:53→21:21)
[2021-11-14] MEDS: Polyethylene Glycol 3350 17 GM Packet PO SCH (08:56)
[2021-11-14] MEDS: Senokot S 8.6-50 MG TAB PO SCH ×2 (08:56→21:24)
[2021-11-14] MEDS: Ferrous Sulfate 325 MG TAB PO SCH ×3 (08:56→21:21)
[2021-11-14 14:32] LABS: #Basophils 0.1 thou/uL (0.0-0.2); #Lymphocytes 0.8 thou/uL (1.20-3.40); #Monocytes 0.7 thou/uL (0.11-0.59); #Neutrophils 7.1 thou/uL (1.40-6.50); %Basophils 0.8 % (0.0-1.0); %Eosinophils 0.2 % (0.0-10.0); %Lymphocytes 9.7 % (21.0-51.0); %Monocytes 7.8 % (0.0-10.0); %Neutrophils 81.5 % (42.0-75.0); Hemoglobin 8.3 g/dL (12.0-16.0); Mean Corpuscular HGB CONC 33.3 g/dL (32.0-36.0); Mean Corpuscular Hemoglobin 32.2 pg (27.0-31.0); Mean Corpuscular Volume 96.9 fL (78.0-98.0); Mean Platelet Volume 9.6 fL (7.4-10.4); Platelet Count 45 thou/uL (130-400); RBC Distribution Width 15.4 % (11.5-14.5); Red Blood Cell (RBC) Count 2.56 mill/uL (4.20-5.40); White Blood Cell (WBC) Count 8.7 thou/uL (4.8-10.8)
[2021-11-14] MEDS ORDERED: Metolazone 2.5 MG TAB PO SCH (18:15)
[2021-11-14] MEDS: Atorvastatin Calcium 40 MG TAB PO SCH (21:22)
[2021-11-14] MEDS: Tamsulosin HCl 0.4 MG CAP PO SCH (21:24)
[2021-11-14] MEDS: Melatonin 3 MG TAB PO SCH (21:24)
[2021-11-15 07:02] LABS: #Eosinphils 0.1 thou/uL (0.0-0.7); #Monocytes 0.6 thou/uL (0.11-0.59); #Neutrophils 4.2 thou/uL (1.40-6.50); %Basophils 0.2 % (0.0-1.0); %Lymphocytes 16.4 % (21.0-51.0); %Monocytes 9.4 % (0.0-10.0); Mean Corpuscular HGB CONC 33.4 g/dL (32.0-36.0); Mean Corpuscular Hemoglobin 32.3 pg (27.0-31.0); Mean Corpuscular Volume 96.6 fL (78.0-98.0); Mean Platelet Volume 9.6 fL (7.4-10.4); Platelet Count 45 thou/uL (130-400); RBC Distribution Width 15.2 % (11.5-14.5); Red Blood Cell (RBC) Count 2.17 mill/uL (4.20-5.40); White Blood Cell (WBC) Count 5.8 thou/uL (4.8-10.8)
[2021-11-15 07:17] LABS: Anion Gap 12 mmol/L (10-20); BUN (Urea Nitrogen) 53 mg/dL (9.8-20.1); Calc. Creatinine Clearance 11 mL/min (70-130); Calcium 7.3 mg/dL (7.8-10.44); Carbon Dioxide 22 mmol/L (23-31); Chloride 106 mmol/L (98-107); Glucose 100 mg/dL (83-110); Magnesium 2.4 mg/dL (1.6-2.6); Phosphorus 4.2 mg/dL (2.3-4.7); Potassium 4.2 mmol/L (3.5-5.1); Sodium 136 mmol/L (136-145)
[2021-11-15] MEDS ORDERED: Bisacodyl 10 MG SUPP PR PRN (07:27)
[2021-11-15] MEDS ORDERED: Magnesium Citrate 300 ML BOT PO SCH (07:30)
[2021-11-15] MEDS ORDERED: Furosemide 20 MG TAB PO SCH (09:00)
[2021-11-15] MEDS: Ferrous Sulfate 325 MG TAB PO SCH ×2 (09:28→20:48)
[2021-11-15] MEDS: Ascorbic Acid 500 mg Chewable Tablet PO SCH ×2 (09:28→20:49)
[2021-11-15] MEDS: Senokot S 8.6-50 MG TAB PO SCH ×2 (09:28→20:48)
[2021-11-15] MEDS: Acetaminophen 500 MG TAB PO SCH ×3 (09:29→23:07)
[2021-11-15] MEDS: Polyethylene Glycol 3350 17 GM Packet PO SCH (09:29)
[2021-11-15] MEDS ORDERED: Furosemide 100 MG/10 ML VIAL SLOW IVP SCH ×3 (12:15→18:00)
[2021-11-15] MEDS ORDERED: Albumin 25% 25 GM/100 ML BOT IVPB SCH (12:15)
[2021-11-15] MEDS ORDERED: EPOETIN ALFA-EPBX (ESRD) 10,000 UNIT/ML VIAL SC SCH (12:30)
[2021-11-15] MEDS ORDERED: Epoetin (ESRD) 10,000 UNITS/ML VIAL SC SCH (13:45)
[2021-11-15 14:49] LABS: INR-International Normal Ratio 1.5
[2021-11-15] MEDS: Albumin 25% 25 GM/100 ML BOT IVPB SCH ×2 (17:20→23:43)
[2021-11-15] MEDS ORDERED: Acetaminophen 325 MG TAB PO SCH (18:00)
[2021-11-15] MEDS: Atorvastatin Calcium 40 MG TAB PO SCH (20:48)
[2021-11-15] MEDS: Melatonin 3 MG TAB PO SCH (20:48)
[2021-11-16] MEDS: Acetaminophen 500 MG TAB PO SCH ×3 (05:15→17:11)
[2021-11-16] MEDS: Albumin 25% 25 GM/100 ML BOT IVPB SCH (05:15)
[2021-11-16 06:02] LABS: #Eosinphils 0.3 thou/uL (0.0-0.7); #Lymphocytes 0.7 thou/uL (1.20-3.40); #Monocytes 0.4 thou/uL (0.11-0.59); %Basophils 0.2 % (0.0-1.0); %Eosinophils 6.4 % (0.0-10.0); %Lymphocytes 16.2 % (21.0-51.0); %Monocytes 9.3 % (0.0-10.0); %Neutrophils 67.9 % (42.0-75.0); Hemoglobin 6.5 g/dL (12.0-16.0); Mean Corpuscular Hemoglobin 32.2 pg (27.0-31.0); Mean Corpuscular Volume 94.7 fL (78.0-98.0); Mean Platelet Volume 8.7 fL (7.4-10.4); Platelet Count 46 thou/uL (130-400); RBC Distribution Width 14.7 % (11.5-14.5); Red Blood Cell (RBC) Count 2.03 mill/uL (4.20-5.40); White Blood Cell (WBC) Count 4.4 thou/uL (4.8-10.8)
[2021-11-16 06:05] LABS: INR-International Normal Ratio 1.4; Prothrombin Time 17.8 sec (12.0-14.7)
[2021-11-16 06:06] LABS: PTT 43.6 sec (22.9-36.1)
[2021-11-16 06:25] LABS: Anion Gap 14 mmol/L (10-20); BUN (Urea Nitrogen) 57 mg/dL (9.8-20.1); Calc. Creatinine Clearance 10 mL/min (70-130); Calcium 8.4 mg/dL (7.8-10.44); Carbon Dioxide 22 mmol/L (23-31); Chloride 103 mmol/L (98-107); Glucose 92 mg/dL (83-110); Iron 59 ug/dL (50-170); Iron Binding Capacity, Total 153 mcg/dL (265-497); Magnesium 2.5 mg/dL (1.6-2.6); Phosphorus 3.8 mg/dL (2.3-4.7); Potassium 3.9 mmol/L (3.5-5.1); Sodium 135 mmol/L (136-145)
[2021-11-16 07:30] LABS: Hemoglobin 5.8 g/dL (12.0-16.0); Mean Corpuscular HGB CONC 33.7 g/dL (32.0-36.0); Mean Corpuscular Hemoglobin 32.3 pg (27.0-31.0); Mean Corpuscular Volume 95.7 fL (78.0-98.0); RBC Distribution Width 14.7 % (11.5-14.5)
[2021-11-16 07:57] LABS: #Eosinphils 0.2 thou/uL (0.0-0.7); #Lymphocytes 0.7 thou/uL (1.20-3.40); #Monocytes 0.4 thou/uL (0.11-0.59); #Neutrophils 2.4 thou/uL (1.40-6.50); %Basophils 0.3 % (0.0-1.0); %Eosinophils 5.9 % (0.0-10.0); %Neutrophils 63.7 % (42.0-75.0); Anisocytosis SLIGHT = 6-15 cells (100X) (0-5/hpf); MDiff Complete? YES; Mean Platelet Volume 8.5 fL (7.4-10.4); Platelet Count 38 thou/uL (130-400); Platelet Morphology Comment Appears Decreased; Polychromasia SLIGHT = 2-3 cells (100X) (0-2/hpf); White Blood Cell (WBC) Count 3.8 thou/uL (4.8-10.8)
[2021-11-16 09:54] LABS: Lactic Acid 0.7 mmol/L (0.5-2.2)
[2021-11-16] MEDS: Senokot S 8.6-50 MG TAB PO SCH ×2 (10:09→21:48)
[2021-11-16] MEDS: Ascorbic Acid 500 mg Chewable Tablet PO SCH ×2 (10:09→21:48)
[2021-11-16] MEDS: Ferrous Sulfate 325 MG TAB PO SCH ×2 (10:09→21:48)
[2021-11-16] MEDS: Polyethylene Glycol 3350 17 GM Packet PO SCH (10:25)
[2021-11-16 13:08] LABS: #Basophils 0.1 thou/uL (0.0-0.2); #Eosinphils 0.3 thou/uL (0.0-0.7); #Lymphocytes 0.8 thou/uL (1.20-3.40); #Monocytes 0.4 thou/uL (0.11-0.59); #Neutrophils 3.1 thou/uL (1.40-6.50); %Basophils 1.2 % (0.0-1.0); %Eosinophils 5.8 % (0.0-10.0); %Lymphocytes 16.3 % (21.0-51.0); %Monocytes 9.7 % (0.0-10.0); %Neutrophils 66.9 % (42.0-75.0); Hemoglobin 7.8 g/dL (12.0-16.0); Mean Corpuscular HGB CONC 34.9 g/dL (32.0-36.0); Mean Corpuscular Hemoglobin 32.6 pg (27.0-31.0); Mean Corpuscular Volume 93.6 fL (78.0-98.0); Mean Platelet Volume 8.8 fL (7.4-10.4); Platelet Count 49 thou/uL (130-400); RBC Distribution Width 14.2 % (11.5-14.5); White Blood Cell (WBC) Count 4.6 thou/uL (4.8-10.8)
[2021-11-16] MEDS ORDERED: Calcium Chloride 13.6 MEQ in Sodium Chloride 0.9% 100 ML IVPB SCH (14:30)
[2021-11-16] MEDS ORDERED: hydrALAZINE 20 MG/ML VIAL SLOW IVP PRN (14:37)
[2021-11-16] MEDS ORDERED: Morphine 2 MG/ML VIAL SLOW IVP SCH (15:00)
[2021-11-16] MEDS: Carvedilol 6.25 MG TAB PO SCH (17:12)
[2021-11-16 19:34] LABS: #Eosinphils 0.3 thou/uL (0.0-0.7); #Lymphocytes 0.8 thou/uL (1.20-3.40); #Monocytes 0.5 thou/uL (0.11-0.59); #Neutrophils 3.2 thou/uL (1.40-6.50); %Basophils 0.6 % (0.0-1.0); %Eosinophils 6.8 % (0.0-10.0); %Monocytes 9.6 % (0.0-10.0); %Neutrophils 66.1 % (42.0-75.0); Hemoglobin 9.3 g/dL (12.0-16.0); Mean Corpuscular HGB CONC 34.6 g/dL (32.0-36.0); Mean Corpuscular Hemoglobin 32.7 pg (27.0-31.0); Mean Corpuscular Volume 94.3 fL (78.0-98.0); Mean Platelet Volume 9.2 fL (7.4-10.4); Platelet Count 46 thou/uL (130-400); Red Blood Cell (RBC) Count 2.85 mill/uL (4.20-5.40); White Blood Cell (WBC) Count 4.9 thou/uL (4.8-10.8)
[2021-11-16 19:44] LABS: INR-International Normal Ratio 1.8; PTT 41.2 sec (22.9-36.1); Prothrombin Time 21.2 sec (12.0-14.7)
[2021-11-16] MEDS: Atorvastatin Calcium 40 MG TAB PO SCH (21:48)
[2021-11-16] MEDS: Melatonin 3 MG TAB PO SCH (22:15)
[2021-11-17] MEDS: Acetaminophen 500 MG TAB PO SCH ×4 (00:12→17:34)
[2021-11-17 06:15] LABS: #Eosinphils 0.3 thou/uL (0.0-0.7); #Lymphocytes 0.9 thou/uL (1.20-3.40); #Monocytes 0.5 thou/uL (0.11-0.59); #Neutrophils 2.8 thou/uL (1.40-6.50); %Basophils 0.5 % (0.0-1.0); %Eosinophils 6.5 % (0.0-10.0); %Lymphocytes 20.7 % (21.0-51.0); %Monocytes 11.1 % (0.0-10.0); %Neutrophils 61.3 % (42.0-75.0); Hemoglobin 8.9 g/dL (12.0-16.0); Mean Corpuscular HGB CONC 34.7 g/dL (32.0-36.0); Mean Corpuscular Volume 95.1 fL (78.0-98.0); Platelet Count 45 thou/uL (130-400); RBC Distribution Width 14.2 % (11.5-14.5); White Blood Cell (WBC) Count 4.5 thou/uL (4.8-10.8)
[2021-11-17 06:20] LABS: INR-International Normal Ratio 1.4; Prothrombin Time 17.1 sec (12.0-14.7)
[2021-11-17 06:21] LABS: PTT 43.1 sec (22.9-36.1)
[2021-11-17 06:31] LABS: Anion Gap 13 mmol/L (10-20); BUN (Urea Nitrogen) 64 mg/dL (9.8-20.1); Calc. Creatinine Clearance 10 mL/min (70-130); Calcium 8.6 mg/dL (7.8-10.44); Carbon Dioxide 22 mmol/L (23-31); Chloride 104 mmol/L (98-107); Glucose 87 mg/dL (83-110); Magnesium 2.5 mg/dL (1.6-2.6); Phosphorus 3.6 mg/dL (2.3-4.7); Potassium 3.9 mmol/L (3.5-5.1); Sodium 135 mmol/L (136-145)
[2021-11-17] MEDS: Senokot S 8.6-50 MG TAB PO SCH ×2 (08:55→20:37)
[2021-11-17] MEDS: Polyethylene Glycol 3350 17 GM Packet PO SCH (08:55)
[2021-11-17] MEDS: Ascorbic Acid 500 mg Chewable Tablet PO SCH ×2 (08:55→20:37)
[2021-11-17] MEDS: Ferrous Sulfate 325 MG TAB PO SCH ×2 (08:55→20:37)
[2021-11-17] MEDS: Carvedilol 6.25 MG TAB PO SCH (08:56)
[2021-11-17] MEDS ORDERED: Carvedilol 6.25 MG TAB PO SCH (10:58)
[2021-11-17] MEDS ORDERED: Carvedilol 3.125 MG TAB PO SCH ×2 (11:15→17:00)
[2021-11-17] MEDS: Melatonin 3 MG TAB PO SCH (20:37)
[2021-11-17] MEDS: Atorvastatin Calcium 40 MG TAB PO SCH (20:37)
[2021-11-18] MEDS: Acetaminophen 500 MG TAB PO SCH ×4 (05:32→17:32)
[2021-11-18 05:58] LABS: #Eosinphils 0.2 thou/uL (0.0-0.7); #Lymphocytes 1.2 thou/uL (1.20-3.40); #Monocytes 0.5 thou/uL (0.11-0.59); #Neutrophils 2.8 thou/uL (1.40-6.50); %Basophils 0.2 % (0.0-1.0); %Eosinophils 5.1 % (0.0-10.0); %Lymphocytes 25.3 % (21.0-51.0); %Monocytes 9.9 % (0.0-10.0); %Neutrophils 59.5 % (42.0-75.0); Hemoglobin 6.6 g/dL (12.0-16.0); Mean Corpuscular HGB CONC 34.5 g/dL (32.0-36.0); Mean Corpuscular Hemoglobin 33.2 pg (27.0-31.0); Mean Corpuscular Volume 96.3 fL (78.0-98.0); Mean Platelet Volume 8.5 fL (7.4-10.4); Platelet Count 47 thou/uL (130-400); RBC Distribution Width 14.3 % (11.5-14.5); Red Blood Cell (RBC) Count 1.99 mill/uL (4.20-5.40); White Blood Cell (WBC) Count 4.7 thou/uL (4.8-10.8)
[2021-11-18 06:16] LABS: Anion Gap 13 mmol/L (10-20); BUN (Urea Nitrogen) 68 mg/dL (9.8-20.1); Calc. Creatinine Clearance 11 mL/min (70-130); Calcium 8.1 mg/dL (7.8-10.44); Carbon Dioxide 21 mmol/L (23-31); Chloride 103 mmol/L (98-107); Glucose 95 mg/dL (83-110); Magnesium 2.4 mg/dL (1.6-2.6); Phosphorus 3.5 mg/dL (2.3-4.7); Sodium 133 mmol/L (136-145)
[2021-11-18 08:17] LABS: #Eosinphils 0.2 thou/uL (0.0-0.7); #Lymphocytes 1.4 thou/uL (1.20-3.40); #Monocytes 0.5 thou/uL (0.11-0.59); #Neutrophils 3.3 thou/uL (1.40-6.50); %Basophils 0.3 % (0.0-1.0); %Eosinophils 3.4 % (0.0-10.0); %Lymphocytes 25.4 % (21.0-51.0); %Neutrophils 60.9 % (42.0-75.0); Hemoglobin 5.9 g/dL (12.0-16.0); Mean Corpuscular HGB CONC 34.5 g/dL (32.0-36.0); Mean Corpuscular Volume 98.6 fL (78.0-98.0); Mean Platelet Volume 8.4 fL (7.4-10.4); Platelet Count 56 thou/uL (130-400); RBC Distribution Width 14.7 % (11.5-14.5); Red Blood Cell (RBC) Count 1.74 mill/uL (4.20-5.40); White Blood Cell (WBC) Count 5.4 thou/uL (4.8-10.8)
[2021-11-18] MEDS: Carvedilol 3.125 MG TAB PO SCH ×2 (09:14→17:32)
[2021-11-18] MEDS: Senokot S 8.6-50 MG TAB PO SCH ×2 (09:14→20:25)
[2021-11-18] MEDS: Ascorbic Acid 500 mg Chewable Tablet PO SCH ×2 (09:14→20:25)
[2021-11-18] MEDS: Polyethylene Glycol 3350 17 GM Packet PO SCH (09:14)
[2021-11-18] MEDS: Ferrous Sulfate 325 MG TAB PO SCH ×2 (09:14→20:25)
[2021-11-18] MEDS ORDERED: ceFAZolin 2 GM/Dextrose 50 ML 2 GM in Premix Bag 1 BAG IVPB SCH (11:30)
[2021-11-18 12:32] LABS: SARS-CoV-2 PCR by NAA Not Detected (NotDetected)
[2021-11-18] MEDS ORDERED: Ketamine 50 MG/ML (10ML VIAL) ONE (17:50)
[2021-11-18] MEDS ORDERED: Sodium Chloride 0.9% 100 ML ONE (17:58)
[2021-11-18] MEDS ORDERED: CEFAZOLIN 2 GM VIAL ONE (17:58)
[2021-11-18] MEDS ORDERED: PROPOFOL 200 MG/20 ML VIAL ONE (18:15)
[2021-11-18] MEDS ORDERED: Promethazine HCl 25 MG/ML VIAL IVPB PRN (19:21)
[2021-11-18] MEDS ORDERED: Ondansetron HCl/PF 4 MG/2 ML Vial IVP PRN (19:21)
[2021-11-18] MEDS ORDERED: Promethazine HCl 25 MG/ML VIAL IM PRN (19:21)
[2021-11-18] MEDS ORDERED: Fentanyl 100 MCG/2 ML VIAL ONE (19:31)
[2021-11-18] MEDS: Atorvastatin Calcium 40 MG TAB PO SCH (20:25)
[2021-11-18] MEDS: Melatonin 3 MG TAB PO SCH (20:25)
[2021-11-19] MEDS: Acetaminophen 500 MG TAB PO SCH ×4 (01:43→17:36)
[2021-11-19] MEDS: CEFAZOLIN 2 GM in Sodium Chloride 0.9% 100 ML IVPB SCH ×3 (01:49→17:10)
[2021-11-19 05:48] LABS: INR-International Normal Ratio 1.3; Prothrombin Time 16.2 sec (12.0-14.7)
[2021-11-19 06:30] LABS: #Eosinphils 0.2 thou/uL (0.0-0.7); #Lymphocytes 1.6 thou/uL (1.20-3.40); #Monocytes 1.1 thou/uL (0.11-0.59); #Neutrophils 5.5 thou/uL (1.40-6.50); %Basophils 0.6 % (0.0-1.0); %Eosinophils 1.8 % (0.0-10.0); %Lymphocytes 18.5 % (21.0-51.0); %Monocytes 13.3 % (0.0-10.0); %Neutrophils 65.8 % (42.0-75.0); Hemoglobin 9.3 g/dL (12.0-16.0); Mean Corpuscular HGB CONC 35.5 g/dL (32.0-36.0); Mean Corpuscular Hemoglobin 33.6 pg (27.0-31.0); Mean Corpuscular Volume 94.7 fL (78.0-98.0); Mean Platelet Volume 7.5 fL (7.4-10.4); Platelet Count 86 thou/uL (130-400); Red Blood Cell (RBC) Count 2.78 mill/uL (4.20-5.40); White Blood Cell (WBC) Count 8.3 thou/uL (4.8-10.8)
[2021-11-19] MEDS: Senokot S 8.6-50 MG TAB PO SCH ×2 (08:25→20:49)
[2021-11-19] MEDS: Ferrous Sulfate 325 MG TAB PO SCH (08:25)
[2021-11-19] MEDS: Carvedilol 3.125 MG TAB PO SCH ×2 (08:25→17:36)
[2021-11-19] MEDS: Ascorbic Acid 500 mg Chewable Tablet PO SCH ×2 (08:25→20:48)
[2021-11-19] MEDS: Polyethylene Glycol 3350 17 GM Packet PO SCH (08:29)
[2021-11-19 08:44] LABS: ALT (SGPT) Less than 7 U/L (8-55); AST (SGOT) 43 U/L (5-34); Albumin 2.3 g/dL (3.4-4.8); Alkaline Phosphatase 59 U/L (40-110); BUN (Urea Nitrogen) 79 mg/dL (9.8-20.1); Bilirubin, Total 2.6 mg/dL (0.2-1.2); Calc. Creatinine Clearance 11 mL/min (70-130); Calcium 8.4 mg/dL (7.8-10.44); Carbon Dioxide 16 mmol/L (23-31); Chloride 106 mmol/L (98-107); Globulin 2.4 g/dL (2.4-3.5); Glucose 89 mg/dL (83-110); Magnesium 2.3 mg/dL (1.6-2.6); Potassium 4.8 mmol/L (3.5-5.1); Protein, Total 4.7 g/dL (5.8-8.1); Sodium 132 mmol/L (136-145)
[2021-11-19 09:00] LABS: Anion Gap 15 mmol/L (10-20)
[2021-11-19 09:31] LABS: Eosinophils 3 % (0-10); Monocytes 7 % (0-10); Reactive Lymphocytes 1 % (0-10)
[2021-11-19 09:37] LABS: Band 7 % (5-11); Lymphocytes 23 % (21-51); Neutrophil 59 % (42-75)
[2021-11-19 09:50] LABS: Platelet Morphology Comment Appears Decreased
[2021-11-19 09:51] LABS: Anisocytosis SLIGHT = 6-15 cells (100X) (0-5/hpf); Polychromasia MODERATE = 3-4 cells (100X) (0-2/hpf)
[2021-11-19] MEDS ORDERED: Ondansetron PF 4 MG/2 ML Vial ONE (11:14)
[2021-11-19] MEDS ORDERED: EPINEPHrine 1 MG/10 ML Abboject SYRINGE ONE (11:14)
[2021-11-19] MEDS ORDERED: Succinylcholine 200 MG/10 ml SYRINGE FS ONE (11:14)
[2021-11-19] MEDS: Sodium Bicarbonate 150 MEQ in Dextrose 5% in Water 1,000 ML IV SCH (14:40)
[2021-11-19] MEDS: Melatonin 3 MG TAB PO SCH (21:27)
[2021-11-19] MEDS: Atorvastatin Calcium 40 MG TAB PO SCH (21:27)
[2021-11-20] MEDS: Acetaminophen 500 MG TAB PO SCH ×5 (00:08→23:29)
[2021-11-20] MEDS: CEFAZOLIN 2 GM in Sodium Chloride 0.9% 100 ML IVPB SCH ×3 (01:56→18:45)
[2021-11-20 05:59] LABS: #Eosinphils 0.3 thou/uL (0.0-0.7); #Monocytes 0.7 thou/uL (0.11-0.59); #Neutrophils 7.3 thou/uL (1.40-6.50); %Eosinophils 2.9 % (0.0-10.0); %Lymphocytes 10.5 % (21.0-51.0); %Monocytes 7.5 % (0.0-10.0); %Neutrophils 79.1 % (42.0-75.0); Hemoglobin 8.9 g/dL (12.0-16.0); Mean Corpuscular HGB CONC 35.3 g/dL (32.0-36.0); Mean Corpuscular Hemoglobin 33.8 pg (27.0-31.0); Mean Corpuscular Volume 95.8 fL (78.0-98.0); Mean Platelet Volume 7.7 fL (7.4-10.4); Platelet Count 69 thou/uL (130-400); RBC Distribution Width 14.1 % (11.5-14.5); Red Blood Cell (RBC) Count 2.62 mill/uL (4.20-5.40); White Blood Cell (WBC) Count 9.3 thou/uL (4.8-10.8)
[2021-11-20 06:20] LABS: Anion Gap 12 mmol/L (10-20); BUN (Urea Nitrogen) 77 mg/dL (9.8-20.1); Calc. Creatinine Clearance 13 mL/min (70-130); Calcium 8.3 mg/dL (7.8-10.44); Carbon Dioxide 24 mmol/L (23-31); Chloride 103 mmol/L (98-107); Glucose 127 mg/dL (83-110); Magnesium 2.1 mg/dL (1.6-2.6); Potassium 3.5 mmol/L (3.5-5.1); Sodium 135 mmol/L (136-145)
[2021-11-20] MEDS: Senokot S 8.6-50 MG TAB PO SCH ×2 (09:14→20:00)
[2021-11-20] MEDS: Carvedilol 3.125 MG TAB PO SCH ×2 (09:14→17:47)
[2021-11-20] MEDS: Polyethylene Glycol 3350 17 GM Packet PO SCH (09:15)
[2021-11-20] MEDS: hydrALAZINE 25 MG TAB PO SCH ×2 (09:15→20:02)
[2021-11-20] MEDS: Pantoprazole 40 MG VIAL IVP SCH (09:15)
[2021-11-20] MEDS: Ascorbic Acid 500 mg Chewable Tablet PO SCH ×2 (09:32→20:02)
[2021-11-20] MEDS: Sodium Bicarbonate 150 MEQ in Dextrose 5% in Water 1,000 ML IV SCH (15:48)
[2021-11-20] MEDS: Atorvastatin Calcium 40 MG TAB PO SCH (20:00)
[2021-11-21] MEDS: CEFAZOLIN 2 GM in Sodium Chloride 0.9% 100 ML IVPB SCH (02:07)
[2021-11-21] MEDS: Acetaminophen 500 MG TAB PO SCH ×2 (06:26→11:54)
[2021-11-21 08:20] LABS: #Eosinphils 0.3 thou/uL (0.0-0.7); #Lymphocytes 1.2 thou/uL (1.20-3.40); #Neutrophils 7.3 thou/uL (1.40-6.50); %Eosinophils 3.3 % (0.0-10.0); %Lymphocytes 11.9 % (21.0-51.0); %Monocytes 10.1 % (0.0-10.0); %Neutrophils 74.6 % (42.0-75.0); Hemoglobin 8.8 g/dL (12.0-16.0); Mean Corpuscular Hemoglobin 34.1 pg (27.0-31.0); Mean Platelet Volume 7.6 fL (7.4-10.4); Platelet Count 46 thou/uL (130-400); RBC Distribution Width 21.2 % (11.5-14.5); Red Blood Cell (RBC) Count 2.58 mill/uL (4.20-5.40); White Blood Cell (WBC) Count 9.8 thou/uL (4.8-10.8)
[2021-11-21 08:36] LABS: Anion Gap 11 mmol/L (10-20); BUN (Urea Nitrogen) 72 mg/dL (9.8-20.1); Calc. Creatinine Clearance 17 mL/min (70-130); Calcium 8.2 mg/dL (7.8-10.44); Carbon Dioxide 26 mmol/L (23-31); Chloride 101 mmol/L (98-107); Glucose 116 mg/dL (83-110); Magnesium 2.1 mg/dL (1.6-2.6); Phosphorus 2.7 mg/dL (2.3-4.7); Potassium 3.1 mmol/L (3.5-5.1); Sodium 135 mmol/L (136-145)
[2021-11-21 08:48] VITALS: TEMP 97.9
[2021-11-21] MEDS ORDERED: PHOS-NAK 1 PKT PACK PO SCH (09:00)
[2021-11-21] MEDS ORDERED: Potassium Chloride 20 MEQ TAB PO SCH (09:00)
[2021-11-21] MEDS: Polyethylene Glycol 3350 17 GM Packet PO SCH (09:50)
[2021-11-21] MEDS: Carvedilol 3.125 MG TAB PO SCH (09:50)
[2021-11-21] MEDS: Senokot S 8.6-50 MG TAB PO SCH (09:50)
[2021-11-21] MEDS: hydrALAZINE 25 MG TAB PO SCH (09:50)
[2021-11-21] MEDS: Pantoprazole 40 MG VIAL IVP SCH (09:50)
[2021-11-21 15:55] VITALS: BP 155/55
== END 2021-11-21 15:55 | DRG 480 ==
LOC: ERS 10:06 → SURG A 11:52
PROVIDERS: ADMIT Surgery; ATTEND Surgery
PROC: 0QS604Z Reposition Right Upper Femur with Internal Fixation Device, Open Approach (ICD-10-PCS; principal; 2021-11-11)
PROC: 30233N1 Transfusion of Nonautologous Red Blood Cells into Peripheral Vein, Percutaneous Approach (ICD-10-PCS; 2021-11-12)
PROC: 30233M1 Transfusion of Nonautologous Plasma Cryoprecipitate into Peripheral Vein, Percutaneous Approach (ICD-10-PCS; 2021-11-15)
PROC: 30233K1 Transfusion of Nonautologous Frozen Plasma into Peripheral Vein, Percutaneous Approach (ICD-10-PCS; 2021-11-16)
PROC: 6A550Z2 Pheresis of Platelets, Single (ICD-10-PCS; 2021-11-18)
PROC: 0W3P8ZZ Control Bleeding in Gastrointestinal Tract, Via Natural or Artificial Opening Endoscopic (ICD-10-PCS; 2021-11-19)
DX: S72.091A Other fracture of head and neck of right femur, initial encounter for closed fracture (principal); Z20.822 Contact with and (suspected) exposure to COVID-19; G93.41 Metabolic encephalopathy; K31.82 Dieulafoy lesion (hemorrhagic) of stomach and duodenum; D62 Acute posthemorrhagic anemia; E27.40 Unspecified adrenocortical insufficiency; N17.9 Acute kidney failure, unspecified; I12.0 Hypertensive chronic kidney disease with stage 5 chronic kidney disease or end stage renal disease; N18.5 Chronic kidney disease, stage 5; K29.60 Other gastritis without bleeding; D13.5 Benign neoplasm of extrahepatic bile ducts; E78.5 Hyperlipidemia, unspecified; E78.00 Pure hypercholesterolemia, unspecified; I25.10 Atherosclerotic heart disease of native coronary artery without angina pectoris; K21.9 Gastro-esophageal reflux disease without esophagitis; F17.210 Nicotine dependence, cigarettes, uncomplicated; S72.141A Displaced intertrochanteric fracture of right femur, initial encounter for closed fracture; D63.1 Anemia in chronic kidney disease; D69.6 Thrombocytopenia, unspecified; R00.1 Bradycardia, unspecified; I45.10 Unspecified right bundle-branch block; E88.09 Other disorders of plasma-protein metabolism, not elsewhere classified; W01.0XXA Fall on same level from slipping, tripping and stumbling without subsequent striking against object, initial encounter; Y92.512 Supermarket, store or market as the place of occurrence of the external cause; Z95.1 Presence of aortocoronary bypass graft; I25.2 Old myocardial infarction; Z95.5 Presence of coronary angioplasty implant and graft; Z90.49 Acquired absence of other specified parts of digestive tract; Z98.49 Cataract extraction status, unspecified eye; Z79.899 Other long term (current) drug therapy; Z79.82 Long term (current) use of aspirin; Z88.7 Allergy status to serum and vaccine; Z82.49 Family history of ischemic heart disease and other diseases of the circulatory system; Z87.11 Personal history of peptic ulcer disease
CPT/HCPCS: 36415; 36430; 71045; 76000; 76705; 80048; 80053; 81001; 82274; 82533; 82728; 83010; 83540; 83550; 83605; 83615; 83690; 83735; 84100; 84443; 84484; 85025; 85060; 85384; 85610; 85730; 86850; 86900; 86901; 87086; 93005; 93010; 93306; 93970; 96374; 96375; C1713; C1776; C9113; G0390; J0171; J0360; J1720; J1940; J2270; J2405; J2704; J3010; J3475; J3490; J7030; J7050; J7070; P9012; P9016; P9035; P9047; P9059; Q4081; S0028; U0002; U0003; U0005

== ENCOUNTER 2021-12-11 15:21 | Inpatient (IN) | payer MEDICARE ==
[2021-12-11 15:43] LABS: #Eosinphils 0.1 thou/uL (0.0-0.7); #Lymphocytes 0.9 thou/uL (1.20-3.40); #Monocytes 0.5 thou/uL (0.11-0.59); #Neutrophils 5.5 thou/uL (1.40-6.50); %Eosinophils 1.2 % (0.0-10.0); %Lymphocytes 12.6 % (21.0-51.0); %Monocytes 6.5 % (0.0-10.0); %Neutrophils 79.6 % (42.0-75.0); Hemoglobin 10.2 g/dL (12.0-16.0); Mean Corpuscular HGB CONC 32.1 g/dL (32.0-36.0); Mean Corpuscular Hemoglobin 35.1 pg (27.0-31.0); Mean Platelet Volume 7.2 fL (7.4-10.4); Platelet Count 79 thou/uL (130-400); RBC Distribution Width 18.5 % (11.5-14.5); Red Blood Cell (RBC) Count 2.91 mill/uL (4.20-5.40); White Blood Cell (WBC) Count 6.9 thou/uL (4.8-10.8)
[2021-12-11 15:54] LABS: INR-International Normal Ratio 1.5; Prothrombin Time 18.7 sec (12.0-14.7)
[2021-12-11] MEDS ORDERED: Pantoprazole 40 MG VIAL ONE (15:54)
[2021-12-11 16:01] LABS: Actual Bicarbonate (HCO3a) 22.3 mEq/L (22-28); Analyzer IN Cardio ER; Base Excess (BEa) -0.6 mEq/L (-2.0 to +3.0); CO2 Tension 30.8 mmHg (35.0-45.0); Calcium, Ionized (arterial) 1.12 mmol/L (1.12-1.30); Carboxyhemoglobin (COHb) 0.6 gm% (0.0-3.0); Hemoglobin (Hb) 11.2 g/dL (12.0-16.0); O2 Tension (PaO2), arterial 87.7 mmHg (> 60.0); pH, Arterial 7.48 (7.35-7.45)
[2021-12-11 16:03] LABS: ALT (SGPT) 16 U/L (8-55); AST (SGOT) 35 U/L (5-34); Albumin 2.3 g/dL (3.4-4.8); Alkaline Phosphatase 115 U/L (40-110); Anion Gap 14 mmol/L (10-20); BUN (Urea Nitrogen) 76 mg/dL (9.8-20.1); Bilirubin, Total 2.3 mg/dL (0.2-1.2); Calc. Creatinine Clearance 0 mL/min (70-130); Calcium 8.3 mg/dL (7.8-10.44); Carbon Dioxide 22 mmol/L (23-31); Chloride 105 mmol/L (98-107); Globulin 3.2 g/dL (2.4-3.5); Glucose 101 mg/dL (83-110); Lipase 74 U/L (8-78); Potassium 3.8 mmol/L (3.5-5.1); Protein, Total 5.5 g/dL (5.8-8.1); Sodium 137 mmol/L (136-145)
[2021-12-11 16:06] LABS: Puncture Site RRA
[2021-12-11 16:12] LABS: Anisocytosis SLIGHT = 6-15 cells (100X) (0-5/hpf); MDiff Complete? YES; Macrocytosis SLIGHT = 6-15 cells (100X) (0-5/hpf); Platelet Morphology Comment Appears Decreased; Polychromasia SLIGHT = 2-3 cells (100X) (0-2/hpf)
[2021-12-11] MEDS ORDERED: Pantoprazole 80 MG in Sodium Chloride 0.9% 100 ML IVPB SCH (16:15)
[2021-12-11 16:21] LABS: Bilirubin Negative (Negative); Blood, Urine Negative (Negative); Clarity Clear (Clear); Glucose, Urine (Dipstick) Normal (Negative); Ketone, Urine Trace mg/dL (Negative); Leukocyte Negative Leu/uL (Negative); Nitrite Negative (Negative); Protein, Urine (Dipstick) Negative (Neg-Trace); Specific Gravity, Urine 1.015 (1.002-1.036); Urobilinogen Normal mg/dL (Less than 2); pH, Urine 5.5 (5.0-9.0)
[2021-12-11 16:24] LABS: CKMB 2.9 ng/mL (0-6.6)
[2021-12-11 16:30] LABS: Acetaminophen Less than 10.0 mcg/mL (10.0-30.0); Alcohol Less than 10 mg/dL (Less than 10); Salicylate Less than 8.0 mg/dL (15.0-30.0)
[2021-12-11 16:30] LABS: Amphetamine Not Detected (NotDetected); Barbiturates Screen Not Detected (NotDetected); Benzodiazepine Screen Not Detected (NotDetected); Cocaine Metabolite Screen Not Detected (NotDetected); Methadone Not Detected (NotDetected); Methamphetamine Not Detected (NotDetected); Opiate Screen Not Detected (NotDetected); Oxycodone Screen Not Detected (NotDetected); Phencyclidine (PCP) Not Detected (NotDetected); THC/Cannabinoid Screen Not Detected (NotDetected); Tricyclic Screen Not Detected (NotDetected)
[2021-12-11] MEDS ORDERED: Lactulose 10 GM/15 ML Oral Solution PR SCH (16:45)
[2021-12-11 17:54] LABS: SARS-CoV-2 NAA Rapid Test Not Detected (NotDetected)
[2021-12-11] MEDS ORDERED: Vancomycin 1 GM/200 ML BAG ONE (18:07)
[2021-12-11] MEDS ORDERED: Piperacillin/Tazobactam 3.375 GM VIAL ONE (18:08)
[2021-12-11] MEDS ORDERED: Octreotide Acetate 50 MCG/ML AMP SLOW IVP SCH (18:30)
[2021-12-11] MEDS ORDERED: Octreotide Acetate 1,250 MCG in Sodium Chloride 0.9% 250 ML 250 ML IVPB SCH (18:30)
[2021-12-11] MEDS ORDERED: Ondansetron PF 4 MG/2 ML Vial IVP PRN (19:45)
[2021-12-11] MEDS ORDERED: Ondansetron ODT 4 MG TAB SL PRN (19:45)
[2021-12-11 20:03] LABS: CKMB 2.4 ng/mL (0-6.6)
[2021-12-11] MEDS: Sodium Chloride 0.9% 1,000 ML IV SCH (21:26)
[2021-12-11] MEDS ORDERED: Piperacillin/Tazobactam 3.375 GM in Sodium Chloride 0.9% 100 ML IVPB SCH (22:00)
[2021-12-11 23:46] VITALS: BMI 27.2
[2021-12-12] MEDS ORDERED: Acetaminophen 325 MG TAB PO PRN (00:01)
[2021-12-12] MEDS ORDERED: Acetaminophen 650 MG Suppository PR PRN (00:01)
[2021-12-12] MEDS ORDERED: Pantoprazole 40 MG VIAL IVP SCH (02:00)
[2021-12-12] MEDS: Sodium Chloride 0.9% 1,000 ML IV SCH (02:17)
[2021-12-12] MEDS ORDERED: Furosemide 40 MG/4 ML VIAL SLOW IVP SCH (03:00)
[2021-12-12 04:35] LABS: #Lymphocytes 0.4 thou/uL (1.20-3.40); #Monocytes 0.4 thou/uL (0.11-0.59); #Neutrophils 8.1 thou/uL (1.40-6.50); %Basophils 0.2 % (0.0-1.0); %Eosinophils 0.5 % (0.0-10.0); %Monocytes 4.4 % (0.0-10.0); Anisocytosis SLIGHT = 6-15 cells (100X) (0-5/hpf); Burr Cells SLIGHT = 2-5 cells (100X) (0-1/hpf); Hemoglobin 9.5 g/dL (12.0-16.0); MDiff Complete? YES; Macrocytosis MODERATE=16-30 cells (100X) (0-5/hpf); Mean Corpuscular HGB CONC 32.8 g/dL (32.0-36.0); Mean Corpuscular Hemoglobin 36.4 pg (27.0-31.0); Mean Platelet Volume 7.4 fL (7.4-10.4); Ovalocytes SLIGHT = 2-5 cells (100X) (0-1/hpf); Platelet Count 62 thou/uL (130-400); Platelet Morphology Comment Appears Decreased; RBC Distribution Width 18.7 % (11.5-14.5)
[2021-12-12 04:37] LABS: Anion Gap 16 mmol/L (10-20); BUN (Urea Nitrogen) 74 mg/dL (9.8-20.1); Calc. Creatinine Clearance 21 mL/min (70-130); Calcium 8.2 mg/dL (7.8-10.44); Carbon Dioxide 19 mmol/L (23-31); Chloride 108 mmol/L (98-107); Glucose 90 mg/dL (83-110); Potassium 3.7 mmol/L (3.5-5.1); Sodium 139 mmol/L (136-145)
[2021-12-12] MEDS: Pantoprazole 40 MG VIAL IVP SCH ×2 (08:11→20:22)
[2021-12-12] MEDS ORDERED: Lactulose 10 GM/15 ML Oral Solution PR SCH (10:15)
[2021-12-12] MEDS: Piperacillin/Tazobactam 3.375 GM in Sodium Chloride 0.9% 100 ML IVPB SCH ×2 (10:37→22:35)
[2021-12-12] MEDS ORDERED: Lidocaine 1% PF 5 ML VIAL ONE (12:18)
[2021-12-12] MEDS ORDERED: PROPOFOL 200 MG/20 ML VIAL ONE (12:18)
[2021-12-13 03:53] LABS: #Eosinphils 0.4 thou/uL (0.0-0.7); #Lymphocytes 1.1 thou/uL (1.20-3.40); #Monocytes 0.6 thou/uL (0.11-0.59); #Neutrophils 3.7 thou/uL (1.40-6.50); %Basophils 0.1 % (0.0-1.0); %Eosinophils 6.1 % (0.0-10.0); %Lymphocytes 19.3 % (21.0-51.0); %Monocytes 10.4 % (0.0-10.0); Hemoglobin 9.2 g/dL (12.0-16.0); Mean Corpuscular HGB CONC 32.2 g/dL (32.0-36.0); Mean Corpuscular Hemoglobin 35.7 pg (27.0-31.0); Mean Platelet Volume 7.4 fL (7.4-10.4); Platelet Count 59 thou/uL (130-400); RBC Distribution Width 18.6 % (11.5-14.5); Red Blood Cell (RBC) Count 2.58 mill/uL (4.20-5.40); White Blood Cell (WBC) Count 5.8 thou/uL (4.8-10.8)
[2021-12-13 03:57] LABS: ALT (SGPT) 14 U/L (8-55); AST (SGOT) 33 U/L (5-34); Albumin 2.1 g/dL (3.4-4.8); Alkaline Phosphatase 90 U/L (40-110); Anion Gap 14 mmol/L (10-20); BUN (Urea Nitrogen) 71 mg/dL (9.8-20.1); Bilirubin, Total 1.7 mg/dL (0.2-1.2); Calc. Creatinine Clearance 19 mL/min (70-130); Calcium 8.2 mg/dL (7.8-10.44); Carbon Dioxide 22 mmol/L (23-31); Chloride 109 mmol/L (98-107); Globulin 2.9 g/dL (2.4-3.5); Glucose 120 mg/dL (83-110); Potassium 3.5 mmol/L (3.5-5.1); Sodium 141 mmol/L (136-145)
[2021-12-13] MEDS: Pantoprazole 40 MG VIAL IVP SCH ×2 (10:25→21:59)
[2021-12-13] MEDS: Piperacillin/Tazobactam 3.375 GM in Sodium Chloride 0.9% 100 ML IVPB SCH ×2 (10:45→22:02)
[2021-12-13] MEDS: Acetaminophen 500 MG TAB PO PRN (17:06)
[2021-12-13] MEDS: Rifaximin 550 MG TAB PO SCH (21:57)
[2021-12-14 05:46] LABS: #Eosinphils 0.3 thou/uL (0.0-0.7); #Lymphocytes 1.1 thou/uL (1.20-3.40); #Monocytes 0.5 thou/uL (0.11-0.59); #Neutrophils 2.6 thou/uL (1.40-6.50); %Basophils 0.3 % (0.0-1.0); %Lymphocytes 23.9 % (21.0-51.0); %Monocytes 11.3 % (0.0-10.0); %Neutrophils 57.6 % (42.0-75.0); Hemoglobin 9.3 g/dL (12.0-16.0); Mean Corpuscular HGB CONC 30.2 g/dL (32.0-36.0); Mean Corpuscular Hemoglobin 34.6 pg (27.0-31.0); Mean Platelet Volume 7.9 fL (7.4-10.4); Platelet Count 60 thou/uL (130-400); RBC Distribution Width 18.7 % (11.5-14.5); Red Blood Cell (RBC) Count 2.67 mill/uL (4.20-5.40); White Blood Cell (WBC) Count 4.6 thou/uL (4.8-10.8)
[2021-12-14 06:01] LABS: ALT (SGPT) 13 U/L (8-55); AST (SGOT) 31 U/L (5-34); Albumin 2.1 g/dL (3.4-4.8); Alkaline Phosphatase 86 U/L (40-110); Anion Gap 13 mmol/L (10-20); BUN (Urea Nitrogen) 61 mg/dL (9.8-20.1); Bilirubin, Total 1.6 mg/dL (0.2-1.2); Calc. Creatinine Clearance 20 mL/min (70-130); Carbon Dioxide 22 mmol/L (23-31); Chloride 108 mmol/L (98-107); Globulin 2.9 g/dL (2.4-3.5); Glucose 115 mg/dL (83-110); Potassium 3.3 mmol/L (3.5-5.1); Sodium 140 mmol/L (136-145)
[2021-12-14] MEDS: Pantoprazole 40 MG VIAL IVP SCH ×2 (09:07→21:07)
[2021-12-14] MEDS: Piperacillin/Tazobactam 3.375 GM in Sodium Chloride 0.9% 100 ML IVPB SCH (09:07)
[2021-12-14] MEDS: Rifaximin 550 MG TAB PO SCH ×2 (09:07→21:08)
[2021-12-14] MEDS ORDERED: Potassium Chloride 20 MEQ TAB PO SCH (11:30)
[2021-12-14] MEDS: Epoetin (ESRD) 10,000 UNITS/ML VIAL SC SCH (19:48)
[2021-12-14] MEDS: hydrALAZINE 25 MG TAB PO SCH (21:07)
[2021-12-15] MEDS: Morphine 2 MG/ML VIAL SLOW IVP PRN (00:09)
[2021-12-15] MEDS ORDERED: Ferrous Sulfate 325 MG TAB PO SCH ×2 (08:15→09:00)
[2021-12-15] MEDS ORDERED: Furosemide 40 MG TAB PO SCH (09:00)
[2021-12-15] MEDS: hydrALAZINE 25 MG TAB PO SCH ×3 (10:04→21:50)
[2021-12-15] MEDS: Rifaximin 550 MG TAB PO SCH ×2 (10:04→21:50)
[2021-12-15] MEDS: Carvedilol 3.125 MG TAB PO SCH ×2 (10:04→16:18)
[2021-12-15] MEDS ORDERED: Furosemide 40 MG/4 ML VIAL SLOW IVP SCH (14:30)
[2021-12-15] MEDS: Acetaminophen 500 MG TAB PO PRN (21:50)
[2021-12-16] MEDS: Morphine 2 MG/ML VIAL SLOW IVP PRN (01:16)
[2021-12-16] MEDS ORDERED: Furosemide 40 MG/4 ML VIAL SLOW IVP SCH (06:45)
[2021-12-16 07:16] LABS: #Eosinphils 0.3 thou/uL (0.0-0.7); #Lymphocytes 1.3 thou/uL (1.20-3.40); #Monocytes 0.6 thou/uL (0.11-0.59); #Neutrophils 2.6 thou/uL (1.40-6.50); %Basophils 0.9 % (0.0-1.0); %Eosinophils 5.9 % (0.0-10.0); %Lymphocytes 26.7 % (21.0-51.0); %Monocytes 12.8 % (0.0-10.0); %Neutrophils 53.7 % (42.0-75.0); Mean Corpuscular HGB CONC 31.2 g/dL (32.0-36.0); Mean Corpuscular Hemoglobin 34.7 pg (27.0-31.0); Mean Platelet Volume 7.2 fL (7.4-10.4); Platelet Count 61 thou/uL (130-400); RBC Distribution Width 18.3 % (11.5-14.5); Red Blood Cell (RBC) Count 2.88 mill/uL (4.20-5.40); White Blood Cell (WBC) Count 4.9 thou/uL (4.8-10.8)
[2021-12-16 07:28] LABS: ALT (SGPT) 12 U/L (8-55); AST (SGOT) 26 U/L (5-34); Alkaline Phosphatase 83 U/L (40-110); Anion Gap 11 mmol/L (10-20); BUN (Urea Nitrogen) 51 mg/dL (9.8-20.1); Bilirubin, Total 1.4 mg/dL (0.2-1.2); Calc. Creatinine Clearance 24 mL/min (70-130); Calcium 8.1 mg/dL (7.8-10.44); Carbon Dioxide 23 mmol/L (23-31); Chloride 108 mmol/L (98-107); Globulin 3.1 g/dL (2.4-3.5); Glucose 86 mg/dL (83-110); Potassium 3.6 mmol/L (3.5-5.1); Protein, Total 5.1 g/dL (5.8-8.1); Sodium 138 mmol/L (136-145)
[2021-12-16] MEDS: Ferrous Sulfate 325 MG TAB PO SCH (08:33)
[2021-12-16] MEDS: Carvedilol 3.125 MG TAB PO SCH ×2 (08:33→18:42)
[2021-12-16] MEDS: hydrALAZINE 25 MG TAB PO SCH ×3 (08:33→20:56)
[2021-12-16] MEDS: Rifaximin 550 MG TAB PO SCH ×2 (08:33→20:57)
[2021-12-16] MEDS: Acetaminophen 500 MG TAB PO PRN (13:53)
[2021-12-16] MEDS: Furosemide 40 MG/4 ML VIAL SLOW IVP SCH (13:54)
[2021-12-17] MEDS: Furosemide 40 MG/4 ML VIAL SLOW IVP SCH ×2 (06:13→13:33)
[2021-12-17] MEDS: Carvedilol 3.125 MG TAB PO SCH ×2 (08:33→16:07)
[2021-12-17] MEDS: Ferrous Sulfate 325 MG TAB PO SCH (08:33)
[2021-12-17] MEDS: hydrALAZINE 25 MG TAB PO SCH ×3 (08:34→21:06)
[2021-12-17] MEDS: Rifaximin 550 MG TAB PO SCH ×2 (08:34→21:06)
[2021-12-17 10:32] LABS: Anion Gap 11 mmol/L (10-20); BUN (Urea Nitrogen) 50 mg/dL (9.8-20.1); Calc. Creatinine Clearance 20 mL/min (70-130); Calcium 7.9 mg/dL (7.8-10.44); Carbon Dioxide 22 mmol/L (23-31); Chloride 106 mmol/L (98-107); Estimated GFR 21; Glucose 112 mg/dL (83-110); Potassium 3.4 mmol/L (3.5-5.1); Sodium 136 mmol/L (136-145)
[2021-12-17] MEDS: Acetaminophen 500 MG TAB PO PRN (12:32)
[2021-12-17] MEDS: Transdermal Patch Removal TOP SCH (21:07)
[2021-12-18] MEDS: Furosemide 40 MG/4 ML VIAL SLOW IVP SCH (05:43)
[2021-12-18] MEDS: Ferrous Sulfate 325 MG TAB PO SCH (09:45)
[2021-12-18] MEDS: Carvedilol 3.125 MG TAB PO SCH ×2 (09:45→16:46)
[2021-12-18] MEDS: Rifaximin 550 MG TAB PO SCH ×2 (09:46→21:22)
[2021-12-18] MEDS: hydrALAZINE 25 MG TAB PO SCH ×3 (09:46→21:22)
[2021-12-18] MEDS: Lidocaine 5% Patch TD SCH ×2 (09:47→10:25)
[2021-12-18 13:18] LABS: Anion Gap 14 mmol/L (10-20); BUN (Urea Nitrogen) 55 mg/dL (9.8-20.1); Calc. Creatinine Clearance 17 mL/min (70-130); Calcium 8.1 mg/dL (7.8-10.44); Carbon Dioxide 21 mmol/L (23-31); Chloride 107 mmol/L (98-107); Estimated GFR 18; Glucose 98 mg/dL (83-110); Potassium 3.5 mmol/L (3.5-5.1); Sodium 138 mmol/L (136-145)
[2021-12-18] MEDS ORDERED: Furosemide 40 MG TAB PO SCH (14:00)
[2021-12-18] MEDS ORDERED: Sodium Chloride 0.9% 500 ML IV SCH (14:15)
[2021-12-18] MEDS: Transdermal Patch Removal TOP SCH (21:23)
[2021-12-19] MEDS: Lidocaine 5% Patch TD SCH (09:14)
[2021-12-19] MEDS: Rifaximin 550 MG TAB PO SCH ×2 (09:21→21:01)
[2021-12-19] MEDS: Carvedilol 3.125 MG TAB PO SCH ×2 (09:21→16:12)
[2021-12-19] MEDS: hydrALAZINE 25 MG TAB PO SCH ×3 (09:21→21:01)
[2021-12-19] MEDS: Ferrous Sulfate 325 MG TAB PO SCH (09:21)
[2021-12-19 12:29] LABS: Anion Gap 13 mmol/L (10-20); BUN (Urea Nitrogen) 54 mg/dL (9.8-20.1); Calc. Creatinine Clearance 17 mL/min (70-130); Carbon Dioxide 22 mmol/L (23-31); Chloride 106 mmol/L (98-107); Estimated GFR 18; Glucose 107 mg/dL (83-110); Potassium 3.5 mmol/L (3.5-5.1); Sodium 137 mmol/L (136-145)
[2021-12-19] MEDS: Morphine 2 MG/ML VIAL SLOW IVP PRN ×2 (12:44→16:52)
[2021-12-19] MEDS: Transdermal Patch Removal TOP SCH ×2 (21:04→21:20)
[2021-12-20 05:41] LABS: Hemoglobin 9.5 g/dL (12.0-16.0); Mean Corpuscular HGB CONC 32.1 g/dL (32.0-36.0); Mean Corpuscular Hemoglobin 35.2 pg (27.0-31.0); Mean Platelet Volume 7.5 fL (7.4-10.4); Platelet Count 58 thou/uL (130-400); RBC Distribution Width 17.7 % (11.5-14.5); Red Blood Cell (RBC) Count 2.69 mill/uL (4.20-5.40); White Blood Cell (WBC) Count 4.4 thou/uL (4.8-10.8)
[2021-12-20 05:50] LABS: Anion Gap 14 mmol/L (10-20); BUN (Urea Nitrogen) 51 mg/dL (9.8-20.1); Calc. Creatinine Clearance 19 mL/min (70-130); Calcium 8.2 mg/dL (7.8-10.44); Carbon Dioxide 20 mmol/L (23-31); Chloride 107 mmol/L (98-107); Estimated GFR 20; Glucose 99 mg/dL (83-110); Potassium 3.6 mmol/L (3.5-5.1); Sodium 137 mmol/L (136-145)
[2021-12-20 06:06] LABS: #Eosinphils 0.1 thou/uL (0.0-0.7); #Lymphocytes 0.9 thou/uL (1.20-3.40); #Monocytes 0.4 thou/uL (0.11-0.59); %Basophils 0.5 % (0.0-1.0); %Eosinophils 3.2 % (0.0-10.0); %Lymphocytes 19.8 % (21.0-51.0); %Monocytes 8.9 % (0.0-10.0); %Neutrophils 67.7 % (42.0-75.0); MDiff Complete? YES; Macrocytosis SLIGHT = 6-15 cells (100X) (0-5/hpf); Platelet Morphology Comment Appears Decreased
[2021-12-20] MEDS: Ferrous Sulfate 325 MG TAB PO SCH (08:39)
[2021-12-20] MEDS: hydrALAZINE 25 MG TAB PO SCH ×3 (08:39→20:13)
[2021-12-20] MEDS: Rifaximin 550 MG TAB PO SCH ×2 (08:39→20:13)
[2021-12-20] MEDS: Carvedilol 3.125 MG TAB PO SCH ×2 (08:39→17:22)
[2021-12-20] MEDS: Lidocaine 5% Patch TD SCH (08:40)
[2021-12-20] MEDS: Acetaminophen 500 MG TAB PO PRN (13:48)
[2021-12-20] MEDS: Transdermal Patch Removal TOP SCH (20:14)
[2021-12-21] MEDS: Acetaminophen 500 MG TAB PO PRN (07:53)
[2021-12-21] MEDS: Carvedilol 3.125 MG TAB PO SCH ×2 (07:55→16:45)
[2021-12-21] MEDS: hydrALAZINE 25 MG TAB PO SCH ×3 (07:55→21:22)
[2021-12-21] MEDS: Rifaximin 550 MG TAB PO SCH ×2 (07:55→21:22)
[2021-12-21] MEDS: Lidocaine 5% Patch TD SCH ×2 (07:55→09:32)
[2021-12-21] MEDS: Ferrous Sulfate 325 MG TAB PO SCH (07:55)
[2021-12-21] MEDS: Morphine 2 MG/ML VIAL SLOW IVP PRN (11:45)
[2021-12-21 12:38] LABS: Anion Gap 12 mmol/L (10-20); BUN (Urea Nitrogen) 56 mg/dL (9.8-20.1); Calc. Creatinine Clearance 17 mL/min (70-130); Calcium 8.2 mg/dL (7.8-10.44); Carbon Dioxide 22 mmol/L (23-31); Chloride 107 mmol/L (98-107); Estimated GFR 17; Glucose 101 mg/dL (83-110); Potassium 3.7 mmol/L (3.5-5.1); Sodium 137 mmol/L (136-145)
[2021-12-21] MEDS ORDERED: Torsemide 20 MG TAB PO SCH (14:00)
[2021-12-21] MEDS: Epoetin (ESRD) 10,000 UNITS/ML VIAL SC SCH (18:00)
[2021-12-21] MEDS: Transdermal Patch Removal TOP SCH ×2 (21:34)
[2021-12-22] MEDS: Carvedilol 3.125 MG TAB PO SCH ×2 (09:38→17:14)
[2021-12-22] MEDS: hydrALAZINE 25 MG TAB PO SCH ×3 (09:39→20:24)
[2021-12-22] MEDS: Ferrous Sulfate 325 MG TAB PO SCH (09:39)
[2021-12-22] MEDS: Rifaximin 550 MG TAB PO SCH ×2 (09:40→20:24)
[2021-12-22] MEDS: Lidocaine 5% Patch TD SCH ×2 (09:40)
[2021-12-22] MEDS: Morphine 2 MG/ML VIAL SLOW IVP PRN (15:26)
[2021-12-22] MEDS: Transdermal Patch Removal TOP SCH ×2 (20:47)
[2021-12-23] MEDS: hydrALAZINE 25 MG TAB PO SCH ×3 (08:13→20:10)
[2021-12-23] MEDS: Carvedilol 3.125 MG TAB PO SCH ×2 (08:13→17:40)
[2021-12-23] MEDS: Rifaximin 550 MG TAB PO SCH ×2 (08:13→20:10)
[2021-12-23] MEDS: Ferrous Sulfate 325 MG TAB PO SCH (08:13)
[2021-12-23] MEDS: Lidocaine 5% Patch TD SCH ×2 (09:15)
[2021-12-23] MEDS ORDERED: Furosemide 40 MG/4 ML VIAL SLOW IVP SCH (11:30)
[2021-12-23] MEDS ORDERED: Furosemide 40 MG TAB PO SCH (13:00)
[2021-12-23] MEDS: Transdermal Patch Removal TOP SCH ×2 (20:15)
[2021-12-24 06:20] LABS: Anion Gap 12 mmol/L (10-20); BUN (Urea Nitrogen) 54 mg/dL (9.8-20.1); Calc. Creatinine Clearance 18 mL/min (70-130); Calcium 8.2 mg/dL (7.8-10.44); Carbon Dioxide 22 mmol/L (23-31); Chloride 106 mmol/L (98-107); Estimated GFR 19; Glucose 95 mg/dL (83-110); Potassium 3.6 mmol/L (3.5-5.1); Sodium 136 mmol/L (136-145)
[2021-12-24 08:24] VITALS: BP 147/60; TEMP 98.4
[2021-12-24] MEDS: Acetaminophen 500 MG TAB PO PRN (08:49)
[2021-12-24] MEDS: Carvedilol 3.125 MG TAB PO SCH (08:50)
[2021-12-24] MEDS: Ferrous Sulfate 325 MG TAB PO SCH (08:50)
[2021-12-24] MEDS: Rifaximin 550 MG TAB PO SCH (08:50)
[2021-12-24] MEDS: hydrALAZINE 25 MG TAB PO SCH ×2 (08:51→14:55)
[2021-12-24] MEDS: Lidocaine 5% Patch TD SCH ×2 (08:51)
[2021-12-24] MEDS ORDERED: Furosemide 40 MG TAB PO SCH (10:00)
[2021-12-25] MEDS ORDERED: Furosemide 40 MG TAB PO SCH (07:30)
== END 2021-12-24 16:50 | DRG 441 ==
LOC: ERS 15:21 → IMCU/EMU 18:24 → MSONC 12-13 14:17
PROVIDERS: ADMIT Student in an Organized Health Care Education/Training Program; ATTEND Student in an Organized Health Care Education/Training Program
PROC: 0DJ08ZZ Inspection of Upper Intestinal Tract, Via Natural or Artificial Opening Endoscopic (ICD-10-PCS; principal; 2021-12-12)
DX: K72.90 Hepatic failure, unspecified without coma (principal); E43 Unspecified severe protein-calorie malnutrition; G93.41 Metabolic encephalopathy; K76.7 Hepatorenal syndrome; K92.1 Melena; K76.6 Portal hypertension; N18.4 Chronic kidney disease, stage 4 (severe); N17.9 Acute kidney failure, unspecified; D62 Acute posthemorrhagic anemia; E72.20 Disorder of urea cycle metabolism, unspecified; R18.8 Other ascites; I13.0 Hypertensive heart and chronic kidney disease with heart failure and stage 1 through stage 4 chronic kidney disease, or unspecified chronic kidney disease; K74.60 Unspecified cirrhosis of liver; Z20.822 Contact with and (suspected) exposure to COVID-19; E78.5 Hyperlipidemia, unspecified; I25.10 Atherosclerotic heart disease of native coronary artery without angina pectoris; Z96.641 Presence of right artificial hip joint; D69.6 Thrombocytopenia, unspecified; R77.8 Other specified abnormalities of plasma proteins; K31.89 Other diseases of stomach and duodenum; D63.1 Anemia in chronic kidney disease; E87.6 Hypokalemia; K57.30 Diverticulosis of large intestine without perforation or abscess without bleeding; Z98.49 Cataract extraction status, unspecified eye; I25.2 Old myocardial infarction; Z88.7 Allergy status to serum and vaccine; Z79.899 Other long term (current) drug therapy; Z95.1 Presence of aortocoronary bypass graft; Z87.11 Personal history of peptic ulcer disease; Z90.49 Acquired absence of other specified parts of digestive tract; Z95.5 Presence of coronary angioplasty implant and graft
CPT/HCPCS: 36415; 36416; 36600; 51702; 70450; 71045; 74176; 76705; 80048; 80053; 80306; 80307; 81003; 82140; 82553; 82607; 82746; 82805; 83605; 83690; 83880; 84484; 85025; 85610; 85730; 86850; 86900; 86901; 87040; 87077; 87086; 87186; 93005; 93970; 94760; 96374; 96375; 96376; 97139; C9113; J1940; J2270; J2354; J2543; J2704; J3370; J3490; J7030; J7050; Q4081; U0002; U0003; U0005

== ENCOUNTER 2022-01-04 22:19 | Inpatient (IN) | payer MEDICARE ==
[2022-01-04 23:48] LABS: ALT (SGPT) 19 U/L (8-55); AST (SGOT) 39 U/L (5-34); Acetaminophen Less than 10.0 mcg/mL (10.0-30.0); Albumin 2.2 g/dL (3.4-4.8); Alcohol Less than 10 mg/dL (Less than 10); Alkaline Phosphatase 121 U/L (40-110); Anion Gap 15 mmol/L (10-20); BUN (Urea Nitrogen) 46 mg/dL (9.8-20.1); Bilirubin, Total 2.5 mg/dL (0.2-1.2); Calc. Creatinine Clearance 0 mL/min (70-130); Calcium 8.3 mg/dL (7.8-10.44); Carbon Dioxide 20 mmol/L (23-31); Chloride 105 mmol/L (98-107); Estimated GFR 25; Globulin 3.5 g/dL (2.4-3.5); Glucose 91 mg/dL (83-110); Potassium 4.2 mmol/L (3.5-5.1); Protein, Total 5.7 g/dL (5.8-8.1); Salicylate Less than 8.0 mg/dL (15.0-30.0); Sodium 136 mmol/L (136-145)
[2022-01-05 00:03] LABS: Band 46 % (5-11); Hemoglobin 10.1 g/dL (12.0-16.0); Lymphocytes 7 % (21-51); MDiff Complete? YES; Mean Corpuscular HGB CONC 33.3 g/dL (32.0-36.0); Mean Corpuscular Hemoglobin 36.6 pg (27.0-31.0); Mean Platelet Volume 7.4 fL (7.4-10.4); Monocytes 1 % (0-10); Neutrophil 46 % (42-75); Platelet Count 53 thou/uL (130-400); Platelet Morphology Comment Appears Decreased; RBC Distribution Width 15.8 % (11.5-14.5); Red Blood Cell (RBC) Count 2.77 mill/uL (4.20-5.40); White Blood Cell (WBC) Count 6.1 thou/uL (4.8-10.8)
[2022-01-05 00:10] LABS: CKMB 1.3 ng/mL (0-6.6)
[2022-01-05] MEDS ORDERED: Cefepime 2 GM VIAL ONE (00:19)
[2022-01-05] MEDS ORDERED: Vancomycin 1 GM/200 ML BAG ONE (01:11)
[2022-01-05] MEDS ORDERED: Ondansetron PF 4 MG/2 ML Vial IVP PRN (03:01)
[2022-01-05] MEDS ORDERED: Acetaminophen 650 MG Suppository PR PRN (03:01)
[2022-01-05] MEDS ORDERED: Ondansetron ODT 4 MG TAB PO PRN (03:01)
[2022-01-05] MEDS ORDERED: Furosemide 40 MG/4 ML VIAL SLOW IVP SCH ×2 (03:45→09:00)
[2022-01-05] MEDS ORDERED: Electrolyte Replacement Protocol 1 EACH FS SCH (03:45)
[2022-01-05 03:46] LABS: Troponin I 0.048 ng/mL (< 0.028)
[2022-01-05] MEDS ORDERED: Spironolactone 100 MG TAB PO SCH (04:00)
[2022-01-05] MEDS ORDERED: Piperacillin/Tazobactam 3.375 GM VIAL ONE ×2 (04:13→09:34)
[2022-01-05] MEDS ORDERED: Furosemide 40 MG/4 ML VIAL ONE ×2 (04:16→09:34)
[2022-01-05] MEDS ORDERED: Lactulose 10 GM/15 ML Oral Solution PR SCH (04:30)
[2022-01-05] MEDS ORDERED: Piperacillin/Tazobactam 3.375 GM in Sodium Chloride 0.9% 100 ML IVPB SCH (05:00)
[2022-01-05 05:58] LABS: Anion Gap 15 mmol/L (10-20); BUN (Urea Nitrogen) 48 mg/dL (9.8-20.1); Calc. Creatinine Clearance 22 mL/min (70-130); Carbon Dioxide 19 mmol/L (23-31); Chloride 106 mmol/L (98-107); Estimated GFR 24; Glucose 107 mg/dL (83-110); Potassium 4.2 mmol/L (3.5-5.1); Sodium 136 mmol/L (136-145)
[2022-01-05 06:00] LABS: Hemoglobin 8.7 g/dL (12.0-16.0); Mean Corpuscular HGB CONC 32.4 g/dL (32.0-36.0); Mean Corpuscular Hemoglobin 34.7 pg (27.0-31.0); Mean Platelet Volume 12.6 fL (7.4-10.4); Platelet Count 8 thou/uL (130-400); RBC Distribution Width 15.7 % (11.5-14.5); Red Blood Cell (RBC) Count 2.51 mill/uL (4.20-5.40); White Blood Cell (WBC) Count 4.3 thou/uL (4.8-10.8)
[2022-01-05 06:04] LABS: Troponin I 0.042 ng/mL (< 0.028)
[2022-01-05 06:18] LABS: Anisocytosis SLIGHT = 6-15 cells (100X) (0-5/hpf); Band 48 % (5-11); Lymphocytes 13 % (21-51); MDiff Complete? YES; Monocytes 4 % (0-10); Neutrophil 35 % (42-75); Platelet Morphology Comment Appears Decreased
[2022-01-05 06:57] LABS: SARS-CoV-2 NAA Rapid Test DETECTED (NotDetected)
[2022-01-05] MEDS ORDERED: Enoxaparin Sodium 40 MG/0.4 ML SYRINGE SC SCH (09:00)
[2022-01-05] MEDS: Piperacillin/Tazobactam 3.375 GM in Sodium Chloride 0.9% 100 ML IVPB SCH ×2 (09:49→22:51)
[2022-01-05] MEDS ORDERED: Pantoprazole 40 MG VIAL IVP SCH (10:00)
[2022-01-05] MEDS ORDERED: Pantoprazole 40 MG VIAL ONE (10:26)
[2022-01-05] MEDS: Carvedilol 3.125 MG TAB PO SCH (18:30)
[2022-01-05] MEDS: Albumin 25% 25 GM/100 ML BOT IVPB SCH (22:47)
[2022-01-06 04:34] LABS: #Lymphocytes 0.6 thou/uL (1.20-3.40); #Monocytes 0.2 thou/uL (0.11-0.59); #Neutrophils 2.7 thou/uL (1.40-6.50); %Eosinophils 0.8 % (0.0-10.0); %Lymphocytes 15.9 % (21.0-51.0); %Monocytes 4.6 % (0.0-10.0); %Neutrophils 78.7 % (42.0-75.0); Hemoglobin 6.9 g/dL (12.0-16.0); Mean Corpuscular HGB CONC 30.2 g/dL (32.0-36.0); Mean Corpuscular Hemoglobin 35.3 pg (27.0-31.0); Mean Platelet Volume 8.9 fL (7.4-10.4); Platelet Count 46 thou/uL (130-400); RBC Distribution Width 15.8 % (11.5-14.5); Red Blood Cell (RBC) Count 1.96 mill/uL (4.20-5.40); White Blood Cell (WBC) Count 3.4 thou/uL (4.8-10.8)
[2022-01-06 04:52] LABS: Anion Gap 15 mmol/L (10-20); BUN (Urea Nitrogen) 47 mg/dL (9.8-20.1); Calc. Creatinine Clearance 22 mL/min (70-130); Calcium 8.1 mg/dL (7.8-10.44); Carbon Dioxide 19 mmol/L (23-31); Chloride 107 mmol/L (98-107); Estimated GFR 22; Glucose 106 mg/dL (83-110); Potassium 4.2 mmol/L (3.5-5.1); Sodium 137 mmol/L (136-145)
[2022-01-06] MEDS: Carvedilol 3.125 MG TAB PO SCH ×2 (11:04→17:46)
[2022-01-06] MEDS: Pantoprazole 40 MG VIAL IVP SCH (11:05)
[2022-01-06] MEDS: Piperacillin/Tazobactam 3.375 GM in Sodium Chloride 0.9% 100 ML IVPB SCH ×2 (11:05→21:14)
[2022-01-06] MEDS: Albumin 25% 25 GM/100 ML BOT IVPB SCH ×3 (11:05→21:36)
[2022-01-07 06:46] LABS: #Eosinphils 0.1 thou/uL (0.0-0.7); #Lymphocytes 0.9 thou/uL (1.20-3.40); #Monocytes 0.4 thou/uL (0.11-0.59); #Neutrophils 3.2 thou/uL (1.40-6.50); %Basophils 0.1 % (0.0-1.0); %Eosinophils 1.6 % (0.0-10.0); %Lymphocytes 19.1 % (21.0-51.0); %Monocytes 9.6 % (0.0-10.0); %Neutrophils 69.7 % (42.0-75.0); Hemoglobin 8.1 g/dL (12.0-16.0); Mean Corpuscular HGB CONC 33.1 g/dL (32.0-36.0); Mean Corpuscular Hemoglobin 33.6 pg (27.0-31.0); Mean Platelet Volume 8.3 fL (7.4-10.4); Platelet Count 43 thou/uL (130-400); RBC Distribution Width 18.5 % (11.5-14.5); Red Blood Cell (RBC) Count 2.42 mill/uL (4.20-5.40); White Blood Cell (WBC) Count 4.6 thou/uL (4.8-10.8)
[2022-01-07 06:49] LABS: Anion Gap 16 mmol/L (10-20); BUN (Urea Nitrogen) 47 mg/dL (9.8-20.1); Calc. Creatinine Clearance 20 mL/min (70-130); Calcium 8.5 mg/dL (7.8-10.44); Carbon Dioxide 18 mmol/L (23-31); Chloride 107 mmol/L (98-107); Estimated GFR 19; Glucose 97 mg/dL (83-110); Potassium 3.3 mmol/L (3.5-5.1); Sodium 138 mmol/L (136-145)
[2022-01-07] MEDS ORDERED: Potassium Chloride 20 MEQ TAB PO SCH (08:00)
[2022-01-07] MEDS ORDERED: Octreotide Acetate 100 MCG/ML VIAL SC SCH (09:30)
[2022-01-07] MEDS: Piperacillin/Tazobactam 3.375 GM in Sodium Chloride 0.9% 100 ML IVPB SCH ×2 (09:49→22:02)
[2022-01-07] MEDS: Pantoprazole 40 MG VIAL IVP SCH (09:50)
[2022-01-07] MEDS: Carvedilol 3.125 MG TAB PO SCH ×2 (09:50→16:42)
[2022-01-07] MEDS ORDERED: Albumin 25% 25 GM/100 ML BOT IVPB SCH (15:15)
[2022-01-07] MEDS: Midodrine HCl 5 MG TAB PO SCH ×2 (16:42→22:02)
[2022-01-07] MEDS: Octreotide Acetate 100 MCG/ML VIAL SC SCH (17:31)
[2022-01-07] MEDS: Acetaminophen 325 MG TAB PO PRN (17:31)
[2022-01-08] MEDS: Octreotide Acetate 100 MCG/ML VIAL SC SCH ×3 (01:49→17:35)
[2022-01-08 04:16] LABS: Hemoglobin 8.8 g/dL (12.0-16.0); Mean Corpuscular HGB CONC 32.4 g/dL (32.0-36.0); Mean Corpuscular Hemoglobin 33.5 pg (27.0-31.0); Mean Platelet Volume 8.4 fL (7.4-10.4); Platelet Count 45 thou/uL (130-400); RBC Distribution Width 18.1 % (11.5-14.5); Red Blood Cell (RBC) Count 2.63 mill/uL (4.20-5.40); White Blood Cell (WBC) Count 4.2 thou/uL (4.8-10.8)
[2022-01-08 04:34] LABS: Anion Gap 13 mmol/L (10-20); BUN (Urea Nitrogen) 47 mg/dL (9.8-20.1); Calc. Creatinine Clearance 18 mL/min (70-130); Calcium 8.7 mg/dL (7.8-10.44); Carbon Dioxide 22 mmol/L (23-31); Chloride 106 mmol/L (98-107); Estimated GFR 17; Glucose 124 mg/dL (83-110); Potassium 3.7 mmol/L (3.5-5.1); Sodium 137 mmol/L (136-145)
[2022-01-08] MEDS ORDERED: hydrALAZINE 20 MG/ML VIAL SLOW IVP SCH (05:00)
[2022-01-08] MEDS: Midodrine HCl 5 MG TAB PO SCH ×3 (09:22→21:17)
[2022-01-08] MEDS: Carvedilol 6.25 MG TAB PO SCH ×2 (09:22→17:25)
[2022-01-08] MEDS: Pantoprazole 40 MG VIAL IVP SCH (09:22)
[2022-01-08] MEDS: Piperacillin/Tazobactam 3.375 GM in Sodium Chloride 0.9% 100 ML IVPB SCH (09:22)
[2022-01-08] MEDS: Albumin 25% 25 GM/100 ML BOT IVPB SCH (09:22)
[2022-01-08] MEDS: metroNIDAZOLE 500 MG in Premix Bag 1 BAG IVPB SCH ×2 (13:36→21:17)
[2022-01-08] MEDS: cefTRIAXone\\ROCEPHIN 1 GM in Sodium Chloride 0.9% 100 ML IVPB SCH (13:36)
[2022-01-09] MEDS: Acetaminophen 325 MG TAB PO PRN (01:26)
[2022-01-09] MEDS: Octreotide Acetate 100 MCG/ML VIAL SC SCH ×3 (01:27→18:02)
[2022-01-09 04:34] LABS: Mean Corpuscular HGB CONC 31.9 g/dL (32.0-36.0); Mean Corpuscular Hemoglobin 33.6 pg (27.0-31.0); Mean Platelet Volume 8.7 fL (7.4-10.4); Platelet Count 43 thou/uL (130-400); RBC Distribution Width 17.9 % (11.5-14.5); Red Blood Cell (RBC) Count 2.67 mill/uL (4.20-5.40)
[2022-01-09 04:39] LABS: INR-International Normal Ratio 1.7; Prothrombin Time 20.3 sec (12.0-14.7)
[2022-01-09 04:54] LABS: Anion Gap 14 mmol/L (10-20); BUN (Urea Nitrogen) 48 mg/dL (9.8-20.1); Calc. Creatinine Clearance 17 mL/min (70-130); Calcium 8.7 mg/dL (7.8-10.44); Carbon Dioxide 22 mmol/L (23-31); Chloride 107 mmol/L (98-107); Estimated GFR 16; Glucose 108 mg/dL (83-110); Iron Binding Capacity, Total 84 mcg/dL (265-497); Potassium 3.5 mmol/L (3.5-5.1); Sodium 139 mmol/L (136-145)
[2022-01-09 05:09] LABS: Ferritin 190.03 ng/mL (10-291)
[2022-01-09 05:22] LABS: HBCM Index 0.08 S/CO (0-0.79); HBSAg Index 0.32 S/CO (0-0.99); Hep A IgM AB Non-Reactive (NonReactive); Hep A IgM S/CO 0.43 S/CO (0-0.79); Hep B Surf Ag Non-Reactive S/CO (NonReactive); Hep C IgG Ab Non-Reactive (NonReactive); Hep C Index 0.15 S/CO (0-0.79); Hepatitis B Core IgM Abs Non-Reactive (NonReactive)
[2022-01-09] MEDS: metroNIDAZOLE 500 MG in Premix Bag 1 BAG IVPB SCH ×3 (06:06→21:03)
[2022-01-09] MEDS: hydrALAZINE 20 MG/ML VIAL SLOW IVP PRN ×2 (07:10→18:02)
[2022-01-09] MEDS: Albumin 25% 25 GM/100 ML BOT IVPB SCH (09:50)
[2022-01-09] MEDS: Midodrine HCl 5 MG TAB PO SCH (09:51)
[2022-01-09] MEDS: Carvedilol 6.25 MG TAB PO SCH ×2 (09:51→18:02)
[2022-01-09 14:28] VITALS: BMI 28.1
[2022-01-09] MEDS: cefTRIAXone\\ROCEPHIN 1 GM in Sodium Chloride 0.9% 100 ML IVPB SCH (14:33)
[2022-01-10] MEDS: hydrALAZINE 20 MG/ML VIAL SLOW IVP PRN ×2 (02:58→20:17)
[2022-01-10] MEDS: Octreotide Acetate 100 MCG/ML VIAL SC SCH ×3 (02:58→17:09)
[2022-01-10 04:53] LABS: #Eosinphils 0.1 thou/uL (0.0-0.7); #Lymphocytes 0.9 thou/uL (1.20-3.40); #Monocytes 0.4 thou/uL (0.11-0.59); #Neutrophils 3.2 thou/uL (1.40-6.50); %Basophils 0.7 % (0.0-1.0); %Eosinophils 1.7 % (0.0-10.0); %Lymphocytes 18.7 % (21.0-51.0); %Monocytes 8.9 % (0.0-10.0); Hemoglobin 9.3 g/dL (12.0-16.0); Mean Corpuscular Hemoglobin 33.9 pg (27.0-31.0); Mean Platelet Volume 8.9 fL (7.4-10.4); Platelet Count 48 thou/uL (130-400); RBC Distribution Width 17.7 % (11.5-14.5); Red Blood Cell (RBC) Count 2.76 mill/uL (4.20-5.40); White Blood Cell (WBC) Count 4.5 thou/uL (4.8-10.8)
[2022-01-10 05:00] LABS: Anion Gap 13 mmol/L (10-20); BUN (Urea Nitrogen) 46 mg/dL (9.8-20.1); Calc. Creatinine Clearance 18 mL/min (70-130); Calcium 8.6 mg/dL (7.8-10.44); Carbon Dioxide 23 mmol/L (23-31); Chloride 107 mmol/L (98-107); Estimated GFR 17; Glucose 108 mg/dL (83-110); Potassium 3.3 mmol/L (3.5-5.1); Sodium 140 mmol/L (136-145)
[2022-01-10] MEDS: metroNIDAZOLE 500 MG in Premix Bag 1 BAG IVPB SCH ×2 (05:40→14:24)
[2022-01-10] MEDS: Carvedilol 6.25 MG TAB PO SCH ×2 (10:35→17:09)
[2022-01-10] MEDS ORDERED: Potassium Chloride 20 MEQ TAB PO SCH (12:00)
[2022-01-10] MEDS: cefTRIAXone\\ROCEPHIN 1 GM in Sodium Chloride 0.9% 100 ML IVPB SCH (16:00)
[2022-01-10] MEDS: Acetaminophen 325 MG TAB PO PRN (20:16)
[2022-01-11] MEDS: Octreotide Acetate 100 MCG/ML VIAL SC SCH ×2 (03:03→10:28)
[2022-01-11] MEDS: hydrALAZINE 20 MG/ML VIAL SLOW IVP PRN (04:15)
[2022-01-11 04:51] LABS: Anion Gap 14 mmol/L (10-20); BUN (Urea Nitrogen) 43 mg/dL (9.8-20.1); Calc. Creatinine Clearance 19 mL/min (70-130); Calcium 8.4 mg/dL (7.8-10.44); Carbon Dioxide 21 mmol/L (23-31); Chloride 108 mmol/L (98-107); Estimated GFR 18; Glucose 99 mg/dL (83-110); Potassium 3.7 mmol/L (3.5-5.1); Sodium 139 mmol/L (136-145)
[2022-01-11 05:43] LABS: Magnesium 1.9 mg/dL (1.6-2.6)
[2022-01-11] MEDS: Carvedilol 6.25 MG TAB PO SCH ×2 (10:28→17:58)
[2022-01-11] MEDS ORDERED: Amlodipine 10 MG TAB PO SCH (11:45)
[2022-01-11 15:33] LABS: ANA Symphony (Qualitative) Equivocal: See Note (Negative); ANA Symphony (Quantitative) 0.8 Ratio (< 0.7 Negative); EliA Vaculitis New Method **** NEW METHOD ****; Mitochondrial Ab 1.6 U/mL (<4 Negative); dsDNA IgG Antibody 3.9 IU/mL (<10 Negative)
[2022-01-11] MEDS ORDERED: Furosemide 20 MG/2 ML VIAL SLOW IVP SCH (16:45)
[2022-01-11] MEDS: hydrALAZINE 25 MG TAB PO SCH (20:40)
[2022-01-11] MEDS: Acetaminophen 325 MG TAB PO PRN (23:56)
[2022-01-12 05:05] LABS: Anion Gap 14 mmol/L (10-20); BUN (Urea Nitrogen) 45 mg/dL (9.8-20.1); Calc. Creatinine Clearance 19 mL/min (70-130); Calcium 8.3 mg/dL (7.8-10.44); Carbon Dioxide 21 mmol/L (23-31); Chloride 107 mmol/L (98-107); Estimated GFR 17; Glucose 109 mg/dL (83-110); Potassium 3.5 mmol/L (3.5-5.1); Sodium 138 mmol/L (136-145)
[2022-01-12] MEDS ORDERED: Amlodipine 5 MG TAB PO SCH (09:00)
[2022-01-12] MEDS: Carvedilol 6.25 MG TAB PO SCH (10:36)
[2022-01-12] MEDS: hydrALAZINE 25 MG TAB PO SCH ×2 (10:37→16:05)
[2022-01-12 11:53] VITALS: BP 134/60; TEMP 97.6
== END 2022-01-12 16:20 | disposition home health service (06) | DRG 441 ==
LOC: ERS 22:19 → ERHOLD 01-05 02:06 → 2NO 01-05 12:01 → OBSVTOIN 01-06 10:08
PROVIDERS: ADMIT Student in an Organized Health Care Education/Training Program; ATTEND Student in an Organized Health Care Education/Training Program
PROC: 8E0ZXY6 Isolation (ICD-10-PCS; principal; 2022-01-06)
PROC: 30233R1 Transfusion of Nonautologous Platelets into Peripheral Vein, Percutaneous Approach (ICD-10-PCS; 2022-01-06)
PROC: 30233N1 Transfusion of Nonautologous Red Blood Cells into Peripheral Vein, Percutaneous Approach (ICD-10-PCS; 2022-01-06)
DX: K72.00 Acute and subacute hepatic failure without coma (principal); L89.153 Pressure ulcer of sacral region, stage 3; U07.1 COVID-19; G93.41 Metabolic encephalopathy; K76.7 Hepatorenal syndrome; N18.4 Chronic kidney disease, stage 4 (severe); K57.32 Diverticulitis of large intestine without perforation or abscess without bleeding; I47.1 Supraventricular tachycardia; I50.32 Chronic diastolic (congestive) heart failure; I13.0 Hypertensive heart and chronic kidney disease with heart failure and stage 1 through stage 4 chronic kidney disease, or unspecified chronic kidney disease; R18.8 Other ascites; N17.9 Acute kidney failure, unspecified; K76.6 Portal hypertension; I25.10 Atherosclerotic heart disease of native coronary artery without angina pectoris; K21.9 Gastro-esophageal reflux disease without esophagitis; K74.60 Unspecified cirrhosis of liver; D69.6 Thrombocytopenia, unspecified; E78.00 Pure hypercholesterolemia, unspecified; D63.1 Anemia in chronic kidney disease; R33.9 Retention of urine, unspecified; E87.6 Hypokalemia; I25.2 Old myocardial infarction; Z88.7 Allergy status to serum and vaccine; Z79.899 Other long term (current) drug therapy; Z79.82 Long term (current) use of aspirin; Z95.1 Presence of aortocoronary bypass graft; Z90.49 Acquired absence of other specified parts of digestive tract; Z95.5 Presence of coronary angioplasty implant and graft
CPT/HCPCS: 36415; 36430; 70450; 71045; 74176; 80048; 80053; 80074; 80307; 82105; 82140; 82533; 82553; 82728; 83516; 83550; 83605; 83690; 83735; 83880; 84443; 84484; 85025; 85027; 85610; 86015; 86038; 86225; 86850; 86900; 86901; 87040; 93005; 96365; 96367; 96375; 96376; 97139; C9113; G0378; J0360; J0692; J0696; J1940; J2354; J2543; J3370; J3490; P9016; P9035; P9047

== ENCOUNTER 2022-01-15 18:59 | Inpatient (IN) | payer MEDICARE ==
[2022-01-15 20:49] LABS: Albumin 1.7 g/dL (3.4-4.8)
[2022-01-15 20:50] LABS: Chloride 102 mmol/L (98-107); Potassium 4.1 mmol/L (3.5-5.1); Sodium 130 mmol/L (136-145)
[2022-01-15 20:51] LABS: Calcium 7.2 mg/dL (7.8-10.44); Glucose 352 mg/dL (83-110)
[2022-01-15 20:52] LABS: Globulin 1.7 g/dL (2.4-3.5); Protein, Total 3.4 g/dL (5.8-8.1)
[2022-01-15 20:53] LABS: Anion Gap 20 mmol/L (10-20); Bilirubin, Total 4.4 mg/dL (0.2-1.2); Carbon Dioxide 12 mmol/L (23-31)
[2022-01-15 20:54] LABS: Alkaline Phosphatase 73 U/L (40-110)
[2022-01-15 20:55] LABS: Calc. Creatinine Clearance 0 mL/min (70-130); Estimated GFR 12; Hemoglobin 3.4 g/dL (12.0-16.0)
[2022-01-15 20:56] LABS: BUN (Urea Nitrogen) 52 mg/dL (9.8-20.1)
[2022-01-15 20:57] LABS: ALT (SGPT) 19 U/L (8-55); AST (SGOT) 93 U/L (5-34)
[2022-01-15 21:02] LABS: Prothrombin Time 56.8 sec (12.0-14.7)
[2022-01-15 21:02] LABS: Anisocytosis MODERATE=16-30 cells (100X) (0-5/hpf); Band 19 % (5-11); Lymphocytes 3 % (21-51); MDiff Complete? YES; Macrocytosis SLIGHT = 6-15 cells (100X) (0-5/hpf); Mean Corpuscular HGB CONC 32.1 g/dL (32.0-36.0); Mean Corpuscular Hemoglobin 35.7 pg (27.0-31.0); Mean Platelet Volume 9.4 fL (7.4-10.4); Monocytes 1 % (0-10); Neutrophil 77 % (42-75); Platelet Count 70 thou/uL (130-400); Platelet Morphology Comment Appears Decreased; Red Blood Cell (RBC) Count 0.96 mill/uL (4.20-5.40); White Blood Cell (WBC) Count 12.5 thou/uL (4.8-10.8)
[2022-01-15 21:03] LABS: PTT 100.1 sec (22.9-36.1)
[2022-01-15 21:07] LABS: INR-International Normal Ratio 6.2
[2022-01-15 21:14] LABS: Bacteria/HPF None Seen HPF (None Seen); Bilirubin Negative (Negative); Blood, Urine Negative (Negative); Clarity Turbid (Clear); Glucose, Urine (Dipstick) Normal (Negative); Ketone, Urine Trace mg/dL (Negative); Leukocyte 75 Leu/uL (Negative); Nitrite Negative (Negative); Protein, Urine (Dipstick) 20 mg/dL (Neg-Trace); RBC/HPF 0-3 HPF (0-3); Specific Gravity, Urine 1.022 (1.002-1.036); Urobilinogen Normal mg/dL (Less than 2)
[2022-01-15 21:15] LABS: Yeast-Budding 2+ HPF (None Seen)
[2022-01-15] MEDS ORDERED: Cefepime 2 GM VIAL ONE (21:18)
[2022-01-15 21:20] LABS: Amphetamine Not Detected (NotDetected); Barbiturates Screen Not Detected (NotDetected); Benzodiazepine Screen Not Detected (NotDetected); Cocaine Metabolite Screen Not Detected (NotDetected); Methadone Not Detected (NotDetected); Methamphetamine Not Detected (NotDetected); Opiate Screen Not Detected (NotDetected); Oxycodone Screen Not Detected (NotDetected); Phencyclidine (PCP) Not Detected (NotDetected); THC/Cannabinoid Screen Not Detected (NotDetected); Tricyclic Screen Not Detected (NotDetected)
[2022-01-15 21:55] LABS: CKMB 19.6 ng/mL (0-6.6)
[2022-01-15 22:53] LABS: SARS-CoV-2 NAA Rapid Test Not Detected (NotDetected)
[2022-01-15] MEDS ORDERED: Pantoprazole 40 MG VIAL ONE (22:57)
[2022-01-15] MEDS ORDERED: Octreotide Acetate 500 MCG/ML VIAL ONE (23:15)
[2022-01-15] MEDS ORDERED: Levofloxacin 500 mg/D5W 100 ml Premix Bag ONE (23:15)
[2022-01-15] MEDS ORDERED: Octreotide Acetate 1,250 MCG in Sodium Chloride 0.9% 250 ML 250 ML IVPB SCH (23:59)
[2022-01-16 00:02] LABS: Hemoglobin 4.2 g/dL (12.0-16.0); Mean Corpuscular HGB CONC 31.8 g/dL (32.0-36.0); Mean Corpuscular Hemoglobin 35.8 pg (27.0-31.0); Mean Platelet Volume 9.3 fL (7.4-10.4); Platelet Count 77 thou/uL (130-400); RBC Distribution Width 23.1 % (11.5-14.5); Red Blood Cell (RBC) Count 1.18 mill/uL (4.20-5.40); White Blood Cell (WBC) Count 14.9 thou/uL (4.8-10.8)
[2022-01-16 00:09] LABS: Prothrombin Time 46.2 sec (12.0-14.7)
[2022-01-16 00:15] LABS: ALT (SGPT) 24 U/L (8-55); AST (SGOT) 113 U/L (5-34); Albumin 1.9 g/dL (3.4-4.8); Alkaline Phosphatase 83 U/L (40-110); Anion Gap 23 mmol/L (10-20); BUN (Urea Nitrogen) 53 mg/dL (9.8-20.1); Bilirubin, Total 4.8 mg/dL (0.2-1.2); Calc. Creatinine Clearance 0 mL/min (70-130); Calcium 7.3 mg/dL (7.8-10.44); Chloride 105 mmol/L (98-107); Estimated GFR 13; Globulin 1.9 g/dL (2.4-3.5); Glucose 152 mg/dL (83-110); Protein, Total 3.8 g/dL (5.8-8.1); Sodium 133 mmol/L (136-145)
[2022-01-16 00:24] LABS: Carbon Dioxide 9 mmol/L (23-31)
[2022-01-16] MEDS ORDERED: Ondansetron PF 4 MG/2 ML Vial IVP PRN (00:25)
[2022-01-16] MEDS ORDERED: Acetaminophen 500 MG TAB PO PRN (00:29)
[2022-01-16 00:30] LABS: INR-International Normal Ratio 4.8
[2022-01-16] MEDS ORDERED: Sodium Bicarb 50 MEQ/50 ML Abboject 8.4% SYRINGE IVP SCH (00:30)
[2022-01-16] MEDS ORDERED: Phytonadione 10 MG/ML AMP SLOW IVP SCH (00:30)
[2022-01-16] MEDS ORDERED: Phytonadione 10 MG in Sodium Chloride 0.9% 50 ML IVPB SCH (00:30)
[2022-01-16] MEDS ORDERED: Albumin 25% 25 GM/100 ML BOT IVPB SCH (00:30)
[2022-01-16 00:32] LABS: #Lymphocytes 1.6 thou/uL (1.20-3.40); #Monocytes 0.8 thou/uL (0.11-0.59); #Neutrophils 12.6 thou/uL (1.40-6.50); %Basophils 0.1 % (0.0-1.0); %Eosinophils 0.1 % (0.0-10.0); %Lymphocytes 10.5 % (21.0-51.0); %Monocytes 5.1 % (0.0-10.0); %Neutrophils 84.2 % (42.0-75.0); Anisocytosis MODERATE=16-30 cells (100X) (0-5/hpf); MDiff Complete? YES; Macrocytosis SLIGHT = 6-15 cells (100X) (0-5/hpf); Platelet Morphology Comment Appears Decreased
[2022-01-16] MEDS ORDERED: Sodium Bicarb 50 MEQ/50 ML Abboject 8.4% SYRINGE ONE (00:43)
[2022-01-16] MEDS ORDERED: Lactulose 10 GM/15 ML Oral Solution PR SCH (01:00)
[2022-01-16] MEDS ORDERED: Hydrocortisone Sod Succ/PF 100 mg/2 ml Vial IVP SCH (01:30)
[2022-01-16] MEDS ORDERED: Meropenem 1 GM in Sodium Chloride 0.9% 100 ML IVPB SCH ×2 (01:45→06:00)
[2022-01-16] MEDS: Midodrine HCl 5 MG TAB PO SCH ×3 (02:13→16:43)
[2022-01-16] MEDS ORDERED: VANCOMYCIN 1.25 GM/250 ML BAG 1.25 GM in Premix Bag 1 BAG IVPB SCH (03:00)
[2022-01-16 03:21] VITALS: BMI 30.8
[2022-01-16] MEDS ORDERED: Dextrose 50% Abboject 50 ML SYRINGE SLOW IVP PRN (03:42)
[2022-01-16] MEDS ORDERED: Dextrose 5% in Water 1,000 ML IV PRN (03:42)
[2022-01-16 03:46] LABS: Lactic Acid 9.3 mmol/L (0.5-2.2)
[2022-01-16 04:20] LABS: Hemoglobin 4.5 g/dL (12.0-16.0); Mean Corpuscular HGB CONC 34.6 g/dL (32.0-36.0); Mean Corpuscular Hemoglobin 36.2 pg (27.0-31.0); Mean Platelet Volume 11.1 fL (7.4-10.4); Platelet Count 2 thou/uL (130-400); RBC Distribution Width 21.9 % (11.5-14.5); Red Blood Cell (RBC) Count 1.25 mill/uL (4.20-5.40); White Blood Cell (WBC) Count 4.8 thou/uL (4.8-10.8)
[2022-01-16 04:53] LABS: Anisocytosis MODERATE=16-30 cells (100X) (0-5/hpf); Band 10 % (5-11); Lymphocytes 14 % (21-51); MDiff Complete? YES; Macrocytosis SLIGHT = 6-15 cells (100X) (0-5/hpf); Monocytes 1 % (0-10); Neutrophil 75 % (42-75); Platelet Morphology Comment Appears Decreased
[2022-01-16 07:21] LABS: INR-International Normal Ratio 3.4; PTT 50.7 sec (22.9-36.1); Prothrombin Time 35.1 sec (12.0-14.7)
[2022-01-16 07:29] LABS: Lactic Acid 7.6 mmol/L (0.5-2.2)
[2022-01-16 07:35] LABS: ALT (SGPT) 25 U/L (8-55); AST (SGOT) 133 U/L (5-34); Albumin 3.3 g/dL (3.4-4.8); Alkaline Phosphatase 77 U/L (40-110); Anion Gap 20 mmol/L (10-20); BUN (Urea Nitrogen) 52 mg/dL (9.8-20.1); Bilirubin, Total 6.5 mg/dL (0.2-1.2); Calc. Creatinine Clearance 14 mL/min (70-130); Carbon Dioxide 17 mmol/L (23-31); Chloride 103 mmol/L (98-107); Estimated GFR 12; Globulin 1.9 g/dL (2.4-3.5); Glucose 138 mg/dL (83-110); Potassium 3.9 mmol/L (3.5-5.1); Protein, Total 5.2 g/dL (5.8-8.1); Sodium 136 mmol/L (136-145)
[2022-01-16] MEDS: Albumin 25% 25 GM/100 ML BOT IVPB SCH ×2 (08:17→16:43)
[2022-01-16] MEDS: Hydrocortisone Sod Succ/PF 100 mg/2 ml Vial IVP SCH ×2 (08:17→16:44)
[2022-01-16] MEDS: Pantoprazole 40 MG VIAL IVP SCH ×2 (08:18→20:16)
[2022-01-16] MEDS: Meropenem 500 MG in Sodium Chloride 0.9% 100 ML IVPB SCH ×2 (11:35→21:17)
[2022-01-16] MEDS ORDERED: Vancomycin 1 GM, Admixture Fee 1 EACH in Premix Bag 1 BAG IVPB SCH (14:00)
[2022-01-16 14:13] LABS: #Lymphocytes 0.8 thou/uL (1.20-3.40); #Monocytes 0.6 thou/uL (0.11-0.59); #Neutrophils 9.8 thou/uL (1.40-6.50); %Basophils 0.2 % (0.0-1.0); %Eosinophils 0.1 % (0.0-10.0); %Lymphocytes 7.1 % (21.0-51.0); %Monocytes 5.3 % (0.0-10.0); %Neutrophils 87.3 % (42.0-75.0); Hemoglobin 6.4 g/dL (12.0-16.0); Mean Corpuscular HGB CONC 34.4 g/dL (32.0-36.0); Mean Corpuscular Hemoglobin 34.9 pg (27.0-31.0); Mean Platelet Volume 8.6 fL (7.4-10.4); Platelet Count 72 thou/uL (130-400); RBC Distribution Width 19.6 % (11.5-14.5); Red Blood Cell (RBC) Count 1.83 mill/uL (4.20-5.40); White Blood Cell (WBC) Count 11.2 thou/uL (4.8-10.8)
[2022-01-16 14:32] LABS: ALT (SGPT) 32 U/L (8-55); AST (SGOT) 160 U/L (5-34); Albumin 3.5 g/dL (3.4-4.8); Alkaline Phosphatase 80 U/L (40-110); Anion Gap 21 mmol/L (10-20); BUN (Urea Nitrogen) 53 mg/dL (9.8-20.1); Bilirubin, Total 7.5 mg/dL (0.2-1.2); Calc. Creatinine Clearance 14 mL/min (70-130); Carbon Dioxide 17 mmol/L (23-31); Chloride 103 mmol/L (98-107); Estimated GFR 12; Globulin 1.8 g/dL (2.4-3.5); Glucose 144 mg/dL (83-110); Potassium 3.9 mmol/L (3.5-5.1); Protein, Total 5.3 g/dL (5.8-8.1); Sodium 137 mmol/L (136-145)
[2022-01-16 14:51] LABS: Vancomycin, Random 16.6 ug/mL (See Comment)
[2022-01-16] MEDS ORDERED: Vancomycin HCl 500 MG in Sodium Chloride 0.9% 100 ML IVPB SCH (18:00)
[2022-01-17] MEDS: Albumin 25% 25 GM/100 ML BOT IVPB SCH ×2 (00:55→08:37)
[2022-01-17 01:28] LABS: Hemoglobin 8.8 g/dL (12.0-16.0)
[2022-01-17] MEDS: Midodrine HCl 5 MG TAB PO SCH ×2 (01:33→08:37)
[2022-01-17] MEDS: Hydrocortisone Sod Succ/PF 100 mg/2 ml Vial IVP SCH ×2 (01:33→08:37)
[2022-01-17 01:40] LABS: PTT 41.4 sec (22.9-36.1); Prothrombin Time 22.7 sec (12.0-14.7)
[2022-01-17 02:43] LABS: Mean Corpuscular HGB CONC 36.2 g/dL (32.0-36.0)
[2022-01-17 02:57] LABS: #Lymphocytes 0.1 thou/uL (1.20-3.40); #Neutrophils 1.9 thou/uL (1.40-6.50); %Eosinophils 1.2 % (0.0-10.0); %Lymphocytes 6.9 % (21.0-51.0); %Monocytes 1.7 % (0.0-10.0); %Neutrophils 88.2 % (42.0-75.0); Mean Corpuscular Hemoglobin 33.7 pg (27.0-31.0); Mean Corpuscular Volume 93.1 fL (78.0-98.0); Mean Platelet Volume 8.7 fL (7.4-10.4); Platelet Count 50 thou/uL (130-400); Platelet Morphology Comment Appears Decreased; RBC Distribution Width 15.5 % (11.5-14.5); White Blood Cell (WBC) Count 2.1 thou/uL (4.8-10.8)
[2022-01-17 03:00] LABS: ALT (SGPT) 44 U/L (8-55); AST (SGOT) 220 U/L (5-34); Albumin 3.7 g/dL (3.4-4.8); Alkaline Phosphatase 102 U/L (40-110); Anion Gap 24 mmol/L (10-20); BUN (Urea Nitrogen) 54 mg/dL (9.8-20.1); Bilirubin, Total 7.5 mg/dL (0.2-1.2); Calc. Creatinine Clearance 13 mL/min (70-130); Calcium 8.2 mg/dL (7.8-10.44); Carbon Dioxide 14 mmol/L (23-31); Chloride 105 mmol/L (98-107); Estimated GFR 11; Globulin 2.1 g/dL (2.4-3.5); Glucose 145 mg/dL (83-110); Potassium 3.6 mmol/L (3.5-5.1); Protein, Total 5.8 g/dL (5.8-8.1); Sodium 139 mmol/L (136-145)
[2022-01-17 07:10] LABS: Hemoglobin 8.5 g/dL (12.0-16.0)
[2022-01-17] MEDS: Meropenem 500 MG in Sodium Chloride 0.9% 100 ML IVPB SCH (08:38)
[2022-01-17] MEDS: Pantoprazole 40 MG VIAL IVP SCH (08:38)
[2022-01-17] MEDS: Morphine 4 MG/ML VIAL SLOW IVP PRN ×3 (12:28→15:56)
[2022-01-18] MEDS: Morphine 4 MG/ML VIAL SLOW IVP PRN ×4 (02:50→10:47)
[2022-01-18 08:25] VITALS: TEMP 96.9
[2022-01-18] MEDS ORDERED: Scopolamine 1.5 mg/72 hour Patch TD PRN (08:27)
[2022-01-18] MEDS ORDERED: Lorazepam 2 MG/ML VIAL SLOW IVP PRN (08:27)
[2022-01-18] MEDS: Lorazepam 2 MG/ML VIAL SLOW IVP PRN ×3 (08:43→10:48)
== END 2022-01-18 12:51 | disposition expired | DRG 871 ==
LOC: ERS 18:59 → CCU 22:50
PROVIDERS: ADMIT Internal Medicine; ATTEND Internal Medicine
PROC: 3E03329 Introduction of Other Anti-infective into Peripheral Vein, Percutaneous Approach (ICD-10-PCS; principal; 2022-01-15)
PROC: 30233N1 Transfusion of Nonautologous Red Blood Cells into Peripheral Vein, Percutaneous Approach (ICD-10-PCS; 2022-01-15)
PROC: 0D9670Z Drainage of Stomach with Drainage Device, Via Natural or Artificial Opening (ICD-10-PCS; 2022-01-15)
PROC: 30233K1 Transfusion of Nonautologous Frozen Plasma into Peripheral Vein, Percutaneous Approach (ICD-10-PCS; 2022-01-16)
PROC: 6A550Z2 Pheresis of Platelets, Single (ICD-10-PCS; 2022-01-16)
DX: A41.9 Sepsis, unspecified organism (principal); R65.21 Severe sepsis with septic shock; E43 Unspecified severe protein-calorie malnutrition; J69.0 Pneumonitis due to inhalation of food and vomit; J18.9 Pneumonia, unspecified organism; K76.7 Hepatorenal syndrome; G93.41 Metabolic encephalopathy; D62 Acute posthemorrhagic anemia; R18.8 Other ascites; D68.9 Coagulation defect, unspecified; N17.9 Acute kidney failure, unspecified; I50.32 Chronic diastolic (congestive) heart failure; N18.5 Chronic kidney disease, stage 5; I13.2 Hypertensive heart and chronic kidney disease with heart failure and with stage 5 chronic kidney disease, or end stage renal disease; R64 Cachexia; D61.818 Other pancytopenia; K92.1 Melena; K76.6 Portal hypertension; Z20.822 Contact with and (suspected) exposure to COVID-19; Z66 Do not resuscitate; Z68.32 Body mass index [BMI] 32.0-32.9, adult; I48.0 Paroxysmal atrial fibrillation; Y95 Nosocomial condition; K74.60 Unspecified cirrhosis of liver; K72.90 Hepatic failure, unspecified without coma; E78.00 Pure hypercholesterolemia, unspecified; I25.10 Atherosclerotic heart disease of native coronary artery without angina pectoris; E78.5 Hyperlipidemia, unspecified; K21.9 Gastro-esophageal reflux disease without esophagitis; D63.1 Anemia in chronic kidney disease; D69.59 Other secondary thrombocytopenia; K31.89 Other diseases of stomach and duodenum; Z88.7 Allergy status to serum and vaccine; Z87.11 Personal history of peptic ulcer disease; I25.2 Old myocardial infarction; Z95.5 Presence of coronary angioplasty implant and graft; Z98.49 Cataract extraction status, unspecified eye; Z90.49 Acquired absence of other specified parts of digestive tract; Z79.899 Other long term (current) drug therapy; Z79.82 Long term (current) use of aspirin; Z95.1 Presence of aortocoronary bypass graft; Z87.891 Personal history of nicotine dependence; Z78.1 Physical restraint status
CPT/HCPCS: 36415; 36416; 36430; 70450; 71045; 74018; 74176; 80053; 80202; 80306; 81003; 81015; 82140; 82553; 83605; 83880; 84484; 85025; 85610; 85730; 86850; 86860; 86870; 86880; 86900; 86901; 86905; 86922; 87040; 87086; 93005; C9113; J0692; J1720; J1956; J2060; J2185; J2270; J2354; J3370; J3430; J3490; J7050; P9016; P9035; P9047; P9059